=== PATIENT | female | born 1950 | race Caucasian/White ===

== ENCOUNTER → 2016-05-13 | Outpatient (CLI) | payer OTHER ==
[~2016-05-13] VITALS: Ht 167.6 cm; Wt 97.5 kg
[~2016-05-13] MED LIST: ALLOPURINOL 10100 M1 PO; ANALPRAM HC 2.530 GM RECTAL; ANTIVERT25 MG PO; APAP500 PO; ASPIRIN EC81 M1 PO; AUGMENTIN 500-1 EACH PO; AZITHROMYCIN 2250 MG PO; BP MEDICINE; CARDIZEM CD120 MG PO; CARDIZEM CD240 MG PO; CIPROFLOXACIN500 M1 PO; COLACE100 MG PO; COZAAR 50 MG TA50 M2 PO; D-20002000 UNIT PO; DEMADEX20 MG PO; DETROL LA4 MG PO; DETROL1 MG PO; FARXIGA10 MG PO; FLECAINIDE ACET50 M1 PO; FLEXERIL PO; FLOMAX0.4 MG PO; GABAPENTIN 100100 MG PO; GABAPENTIN PO; HEMORRHOIDAL P1 EAC1 TP; HUMALOG100 UNIT/1 SQ; LASIX 40 MG TAB40 M1 PO; LASIX 40 MG TAB40 M2 PO; LEVEMIR SC; LEVEMIR SUBQ; LEVEMIR100 UNIT/1 SUBQ; LINZESS290 MCG PO; LYRICA 75 MG CA75 MG PO; METFORMIN HCL500 MG PO; MIRALAX17 GM PO; MOTION RELIEF25 MG PO; MUCUS-ER MAX1200 MG PO; NORCO 5-325 TA1 EACH PO; NOVOLOG100 UNIT/1 SQ; NOVOLOG100 UNIT/1 SUBQ; PEPCID20 MG PO; PRADAXA150 MG PO; PRAVACHOL40 MG PO; PROTONIX40 M2 PO; PYRIDIUM200 MG PO; QUINAPRIL 20 MG20 MG PO; TENORMIN25 MG PO; TESSALON PERLE100 M1 PO; TOPROL XL25 MG PO; UNICOMPLEX M TA1 TA1 PO; ZOCOR 20 MG TAB20 M1 PO; [UNRECOGNIZED DRUG - REMARK]
--- NOTE | ~2016-05-13 | P ---
[facility] [address] PROCEDURE REPORT Name: GEORGI KAUFMAN V Room #: REG [facility]#: [id number] Admission: 05/13/16 Attend Phys: Derrick Love MD Discharge: Date of : 46 Report #: [id number] THIS REPORT FOR: //name// CC: Derrick Love Silvio Macias DATE OF SERVICE: 05/13/2016 PREOPERATIVE DIAGNOSIS: Atrial fibrillation. POSTOPERATIVE DIAGNOSIS: Atrial fibrillation. HISTORY OF PRESENT ILLNESS: The patient is a 66-year-old with a history of persistent atrial fibrillation status post pacemaker implantation for severe sick sinus syndrome with heart rates in the 20s who we tried to manage with antiarrhythmics unsuccessfully. We have also tried repeat cardioversions, which were unsuccessful. She has had problems with lightheadedness and fatigue with the rate control strategy. She has episodes of AFib with rapid ventricular response. She is here for AV node ablation. DESCRIPTION OF PROCEDURE: The patient underwent informed consent. We discussed the details of the procedure including the risks, which include but not limited to bleeding, infection, vascular damage and damage to the prior implanted pacemaker. She understood these risks and is willing to proceed. She underwent MAC anesthesia by the anesthesiology service. Next, I obtained access to the right femoral vein times 1 . I placed a short sheath and then exchanged for an SR0 sheath and placed an 8 mm ablation catheter into the heart. Prior to the ablation, her [employer] Jef dual-chamber pacemaker was interrogated and leads were functioning normally. Next, ablation was performed at 70 norman 60 degrees. Multiple ablation lesions were performed and this resulted in the first degree AV block. Eventually, we were able to induce complete heart block. We monitored for a period of 30 minutes and there was no amish of conduction. The pacemaker was reinterrogated and programmed to a lower rate of 70 beats per minute. CONCLUSIONS: 1. Successful AV node ablation. 2. Successful pacemaker reprogramming with stable pacing and sensing thresholds. <ELECTRONICALLY SIGNED> By: Derrick Love MD 05/13/16 1454 1005 1109 Derrick Love MD /nt
[2016-05-13 06:50] VITALS: BP 163/80
[2016-05-13 07:24] LABS: ABSOLUTE NEUTROPHILS 4.3 thou/uL (1.4-8.2); BASOPHILS 0.9 % (0.0-2.0); EOSINOPHILS 4.8 % (0.0-3.0); HEMATOCRIT 35.6 % (37.0-47.0); LYMPHOCYTES 18.4 % (24.0-44.0); MCH 27.7 pg (26.0-34.0); MCHC 33.7 % (28.0-37.0); MCV 82.4 fL (80.0-100.0); MONOCYTES 11.5 % (1.0-8.0); PLATELET COUNT 225 thou/uL (150-400); POLYS 64.4 % (36.0-66.0); RBC 4.33 mil/uL (4.20-5.00); RDW 15.1 % (10.5-14.5); WBC 6.7 thou/uL (4.0-11.0)
[2016-05-13 07:25] LABS: MANUAL DIFF NO
[2016-05-13 07:33] LABS: CALCIUM 9.3 mg/dL (8.5-10.1); CREATININE 1.5 mg/dL (0.6-1.3); POTASSIUM 4.3 mmol/L (3.5-5.1)
[2016-05-13 07:39] LABS: ALBUMIN 3.7 g/dL (3.4-5.0); APTT 42.2 Seconds (24.5-32.8); INR 1.2; PROTIME 12.9 Seconds (9.3-11.4); TOTAL BILIRUBIN 0.4 mg/dL (<0.1-1.0); TOTAL PROTEIN 6.8 g/dL (6.4-8.2)
== END | disposition home or self-care (01) ==
LOC: CATH 06:20
PROVIDERS: Internal Medicine Cardiovascular Disease
DX: I48.1 Persistent atrial fibrillation (principal); I49.5 Sick sinus syndrome; Z95.0 Presence of cardiac pacemaker
CPT/HCPCS: 62110; 70005

== ENCOUNTER → 2016-12-08 | Outpatient (CLI) | payer OTHER ==
--- NOTE | ~2016-12-08 | 2DMMODE ---
[facility] [address] [place] [address] 2 D/M-MODE ECHOCARDIOGRAM Name: GEORGI KAUFMAN CORNELIA Room #: REG [facility]#: [id number] Admission: 12/08/16 Attend Phys: Derrick Love Discharge: Date of : 46 Date of Service: 12/08/16 1605 Report #: [id number] THIS REPORT FOR: //name// APPROVED REPORT Study performed: 12/08/2016 14:53:45 EXAM: Comprehensive 2D, Doppler, and color-flow Echocardiogram Patient Location: Echo lab Status: routine BSA: 2.00 BP: 169/102 mmHg Other Information Study Quality: Adequate Indications Atrial Fibrillation Pacemaker Hypertension/HDD 2D Dimensions RVDd: 32.82 mm LVEF(%): 65.81 (>50%) IVSd: 9.70 (7-11mm) LVOT Diam: 18.76 (18-24mm) LVDd: 46.01 mm PWd: 10.22 (7-11mm) Ascending Ao: 32.20 (22-36mm) LVDs: 29.40 (25-40mm) Aortic Root: 27.27 mm IVC: 18.00 mm Dobson's LVEF: 65.81 % Volumes Left Atrial Volume (Systole) Single Plane 4CH: 63.60 mL Single Plane 2CH: 87.51 mL LA ESV Index: 40.00 mL/m2 Aortic Valve AoV Peak Jeremiah.: 1.22 m/s AO Peak Gr.: 5.91 mmHg Mitral Valve E/A Ratio: 2.8 MV Decel. Time: 225.30 ms MV E Max Jeremiah.: 1.28 m/s [facility] [address] [place] [address] 2 D/M-MODE ECHOCARDIOGRAM Name: GEORGI KAUFMAN CORNELIA Room #: REG [facility]#: [id number] Admission: 12/08/16 Attend Phys: Derrick [facility] Discharge: Date of : 46 Date of Service: 12/08/16 1605 Report #: [id number] MV A Jeremiah.: 0.45 m/s MV PHT: 65.34 ms IVRT: 115.34 ms Pulmonary Valve PV Peak Jeremiah.: 0.86 m/s PV Peak Gr.: 2.94 mmHg Tricuspid Valve TR Peak Jeremiah.: 2.82 m/s RAP Estimate: 5.00 mmHg TR Peak Gr.: 31.84 mmHg Left Ventricle The left ventricle is normal size. There is normal left ventricular wall thickness. Left ventricular systolic function is normal. LVEF is 55-60%. Right Ventricle The right ventricle is normal size. The right ventricular systolic function is normal. Atria Left atrium is dilated. Possible small PFO is noted. Right atrium is at the upper limits of normal. Aortic Valve The aortic valve is normal in structure. No aortic regurgitation is present. There is no aortic valvular stenosis. Mitral Valve Mild mitral annular calcification. Mild mitral regurgitation. No evidence of mitral valve stenosis. Tricuspid Valve The tricuspid valve is normal in structure. There is mild to moderate tricuspid regurgitation. The right atrial pressure is estimated at 5 mmHg. PAP is estimated at 37 mmHg. Pulmonic Valve The pulmonary valve is normal in structure. Trace pulmonic regurgitation. Great Vessels The aortic root is normal in size. IVC is normal in size and collapses >50% with inspiration. <Conclusion> [facility] [place] [address] 2 D/M-MODE ECHOCARDIOGRAM Name: GEORGI KAUFMAN CORNELIA [facility] [id number] Admission: 12/08/16 Attend Phys: Derrick Love Discharge: Date of : 46 Date of Service: 12/08/16 1605 Report #: [id number] The left ventricle is normal size. LVEF is 55-60%. Left atrium is dilated. The aortic valve is normal in structure. Mild mitral annular calcification. Mild mitral regurgitation. The tricuspid valve is normal in structure. There is mild to moderate tricuspid regurgitation. The right atrial pressure is estimated at 5 mmHg. PAP is estimated at 37 mmHg. The pulmonary valve is normal in structure. Trace pulmonic regurgitation. <ELECTRONICALLY SIGNED> By: Isac Rodrigues MD 12/08/16 1605 1605 Isac Rodrigues MD /INF
== END ==
LOC: CV 10:40
DX: I08.1 Rheumatic disorders of both mitral and tricuspid valves (principal); I10 Essential (primary) hypertension; I48.91 Unspecified atrial fibrillation

== ENCOUNTER 2017-05-19 12:04 | Emergency (ER) | payer OTHER ==
[~2017-05-19] VITALS: Ht 165.1 cm; Wt 90.7 kg
[~2017-05-19 12:04] MED LIST changes: +COZAAR 50 MG TA50 M1 PO; -COZAAR 50 MG TA50 M2 PO
[2017-05-19] MEDS ORDERED: OXYCODONE HCL 55 MG PO (14:56)
[2017-05-19] MEDS ORDERED: SENNA S TABLET1 EACH PO (14:56)
[2017-05-19 15:20] VITALS: BP 135/69
== END 2017-05-19 15:21 | disposition home or self-care (01) ==
LOC: ER 12:04
DX: M25.531 Pain in right wrist (principal); R07.89 Other chest pain; I48.91 Unspecified atrial fibrillation; E11.9 Type 2 diabetes mellitus without complications; I10 Essential (primary) hypertension; K21.9 Gastro-esophageal reflux disease without esophagitis; G47.30 Sleep apnea, unspecified; E78.00 Pure hypercholesterolemia, unspecified; E66.9 Obesity, unspecified; Z90.710 Acquired absence of both cervix and uterus; Z79.4 Long term (current) use of insulin; Z88.6 Allergy status to analgesic agent; Z68.33 Body mass index [BMI] 33.0-33.9, adult; W01.0XXA Fall on same level from slipping, tripping and stumbling without subsequent striking against object, initial encounter; Y93.89 Activity, other specified; Y92.89 Other specified places as the place of occurrence of the external cause; Y99.8 Other external cause status

== ENCOUNTER 2018-01-18 10:23 | Inpatient (IN) | payer OTHER ==
[~2018-01-18] VITALS: Ht 167.6 cm; Wt 85.0 kg
--- NOTE | ~2018-01-18 | 2DMMODE ---
[address] [address] 2 D/M-MODE ECHOCARDIOGRAM Name: GEORGI KAUFMAN Room #: REG [facility].#: [id number] Admission: 01/18/18 Attend Phys: Discharge: Date of : 46 Date of Service: 01/18/18 1227 Report #: [id number] THIS REPORT FOR: //name// APPROVED REPORT Study performed: 01/18/2018 11:38:56 EXAM: Limited 2D, Doppler, and color-flow Echocardiogram Patient Location: ER Room #: 8 Status: routine HR: 69 bpm Other Information Study Quality: Technically Limited Technically limited study due to inability to position patient, patient on biPap. Indications Diabetes Pacemaker Hypertension/HDD limited echo to R/O pericardial effusion, complete echo 01/11/18 2D Dimensions IVC: 25.00 mm Tricuspid Valve TR Peak Jeremiah.: 3.12 m/s RAP Estimate: 10.00 mmHg TR Peak Gr.: 39.00 mmHg PA Pressure: 49.00 mmHg Left Ventricle The overall left ventricular systolic function appears normal. LVEF is 55%. Right Ventricle Right ventricle is mildly dilated. Atria The left atrium size is normal. Right atrium is dilated. Mitral Valve Mild mitral annular calcification. [address] [address] 2 D/M-MODE ECHOCARDIOGRAM Name: GEORGI KAUFMAN Room #: REG [facility]#: [id number] Admission: 01/18/18 Attend Phys: Discharge: Date of : 46 Date of Service: 01/18/18 1227 Report #: [id number] Tricuspid Valve The tricuspid valve is normal in structure. Moderate tricuspid regurgitation. PAP is estimated at 50-55 mmHg. Great Vessels IVC is dilated. Pericardium No pericardial effusion. <Conclusion> Very limited and abbreviated study The overall left ventricular systolic function appears normal. LVEF is 55%. Right ventricle is mildly dilated. The left atrium size is normal. Right atrium is dilated. Pacing wires seen Mild mitral annular calcification. Moderate tricuspid regurgitation. Pulmonary artery pressure estimated at 50-55 mmHg. No pericardial effusion. <ELECTRONICALLY SIGNED> By: Gautam Padron MD, [facility] 01/18/181226 26 26 Gautam Padron MD, FAC /INF
--- NOTE | ~2018-01-18 | EKG ---
[address] [address] ELECTROCARDIOGRAM REPORT Name: MANDEEPGEORGIKulwinder LOCKE Room #: 208-P ADM IN M.R.#: [id number] Admission: 01/18/18 Attend Phys: Jay Mast MD Discharge: Date of : 46 Report #: [id number] THIS REPORT FOR: //name// [facility] Test Date: 2018-01-19 Test Time: 08:51:02 Pat Name: GEORGI KAUFMAN Department: Room: 208 P Gender: F Cyber Systems Administrator: CECILE : 1950 Requested By: Luz Marina Webster Order Number: [id number] MD: Derrick Love Measurements Intervals [place] Rate: 70 P: 0 CA: 189 QRS: 262 QRSD: 137 T: 105 QT: 459 QTc: 496 Interpretive Statements Ventricular-paced complexes No further analysis attempted due to paced rhythm Baseline wander in lead(s) V6 Compared to ECG 01/18/2018 10:40:20 Atrial fibrillation no longer present Electronically Signed On 01-19-2018 23:08:13 CDT by Derrick Love [email or web address] <ELECTRONICALLY SIGNED> By: Derrick Love MD 01/19/18 2308 0851 0851 Derrick Love MD /EPI
--- NOTE | ~2018-01-18 | EKG ---
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 : 1950 Requested By: Alvino Phan Order Number: [id number] MD: Derrick Love Measurements Intervals [place] Rate: 70 P: CT: QRS: 258 QRSD: 132 T: 93 QT: 459 QTc: 496 Interpretive Statements Afib/flut and V-paced complexes No further analysis attempted due to paced rhythm Compared to ECG 01/03/2016 13:14:24 Intraventricular conduction delay no longer present Myocardial infarct finding no longer present Electronically Signed On 01-18-2018 17:03:07 CDT by Derrick Love [email or web address] <ELECTRONICALLY SIGNED> By: Derrick Love MD 01/18/18 1703 1040 1040 Derrick Love MD /EPI
[~2018-01-18 10:23] MED LIST changes: +OXYCODONE HCL 55 MG PO; +SENNA S TABLET1 EACH PO
[2018-01-18 10:29] VITALS: BP 185/82
[2018-01-18 11:22] LABS: ABSOLUTE NEUTROPHILS 8.3 thou/uL (1.4-8.2); BASOPHILS 0.7 % (0.0-2.0); EOSINOPHILS 1.5 % (0.0-3.0); HEMATOCRIT 34.6 % (37.0-47.0); HEMOGLOBIN 11.8 gm/dL (12.0-15.0); LYMPHOCYTES 6.4 % (24.0-44.0); MCHC 34.2 g/dL (28.0-37.0); MCV 81.8 fL (80.0-100.0); MONOCYTES 11.2 % (1.0-8.0); PLATELET COUNT 273 thou/uL (150-400); POLYS 80.2 % (36.0-66.0); RBC 4.23 mil/uL (4.20-5.00); RDW 15.5 % (10.5-14.5); WBC 10.3 thou/uL (4.0-11.0)
[2018-01-18 11:28] LABS: ANION GAP 9 mmol/L (7-16); BUN 19 mg/dL (7-18); CALCIUM 9.6 mg/dL (8.5-10.1); CHLORIDE 102 mmol/L (98-107); CO2 26 mmol/L (21-32); CREATININE 1.4 mg/dL (0.6-1.0); GLUCOSE 225 mg/dL (74-106); POTASSIUM 4.4 mmol/L (3.5-5.1); SODIUM 137 mmol/L (136-145)
[2018-01-18 11:37] LABS: TROPONIN-I <0.06 ng/mL (<0.06)
[2018-01-18 13:56] VITALS: BP 173/83
[2018-01-18 14:20] VITALS: BP 160/81
[2018-01-18] MEDS ORDERED: CARDIZEM CD120 MG PO (14:49)
[2018-01-18 17:10] VITALS: BP 165/98
[2018-01-18 19:20] VITALS: BP 166/94
[2018-01-19 04:41] LABS: CALCIUM 9.2 mg/dL (8.5-10.1); CREATININE 1.7 mg/dL (0.6-1.0); MAGNESIUM 1.7 mg/dL (1.8-2.4); POTASSIUM 4.1 mmol/L (3.5-5.1)
[2018-01-19 04:49] LABS: ABSOLUTE NEUTROPHILS 6.1 thou/uL (1.4-8.2); BASOPHILS 0.1 % (0.0-2.0); HEMATOCRIT 32.8 % (37.0-47.0); HEMOGLOBIN 10.8 gm/dL (12.0-15.0); LYMPHOCYTES 3.3 % (24.0-44.0); MCH 27.4 pg (26.0-34.0); MCV 83.1 fL (80.0-100.0); MONOCYTES 1.4 % (1.0-8.0); PLATELET COUNT 229 thou/uL (150-400); POLYS 95.2 % (36.0-66.0); RBC 3.94 mil/uL (4.20-5.00); WBC 6.4 thou/uL (4.0-11.0)
[2018-01-19 05:53] VITALS: BP 163/94
[2018-01-19 08:10] VITALS: BP 147/80
[2018-01-19 15:40] VITALS: BP 134/68
[2018-01-19 19:15] VITALS: BP 120/64
[2018-01-20 04:11] VITALS: BP 133/74
[2018-01-20 05:03] LABS: CALCIUM 9.4 mg/dL (8.5-10.1); CREATININE 1.7 mg/dL (0.6-1.0); POTASSIUM 4.1 mmol/L (3.5-5.1)
[2018-01-20 05:23] LABS: HEMATOCRIT 30.4 % (37.0-47.0); HEMOGLOBIN 10.3 gm/dL (12.0-15.0); MCH 27.5 pg (26.0-34.0); MCHC 33.8 g/dL (28.0-37.0); MCV 81.5 fL (80.0-100.0); RBC 3.73 mil/uL (4.20-5.00); RDW 15.5 % (10.5-14.5)
[2018-01-20 07:50] VITALS: BP 128/73
[2018-01-20 11:42] VITALS: BP 148/80
[2018-01-20 16:00] VITALS: BP 138/63
[2018-01-20 20:00] VITALS: BP 145/73
[2018-01-21 05:00] VITALS: BP 149/80
[2018-01-21 05:32] LABS: HEMATOCRIT 35.8 % (37.0-47.0); MCH 27.2 pg (26.0-34.0); MCHC 33.5 g/dL (28.0-37.0); MCV 81.4 fL (80.0-100.0); RBC 4.4 mil/uL (4.20-5.00); RDW 15.3 % (10.5-14.5); WBC 15.7 thou/uL (4.0-11.0)
[2018-01-21 05:36] LABS: CALCIUM 9.5 mg/dL (8.5-10.1); CREATININE 1.6 mg/dL (0.6-1.0); POTASSIUM 3.7 mmol/L (3.5-5.1)
[2018-01-21 07:45] VITALS: BP 168/89
[2018-01-21 11:50] VITALS: BP 154/88
[2018-01-21 16:05] VITALS: BP 150/69
[2018-01-21 20:10] VITALS: BP 121/70
[2018-01-22 03:07] LABS: HEMATOCRIT 34.2 % (37.0-47.0); HEMOGLOBIN 11.3 gm/dL (12.0-15.0); MCV 81.8 fL (80.0-100.0); RBC 4.18 mil/uL (4.20-5.00); RDW 15.5 % (10.5-14.5); WBC 9.8 thou/uL (4.0-11.0)
[2018-01-22 03:17] LABS: CALCIUM 9.3 mg/dL (8.5-10.1); CREATININE 1.6 mg/dL (0.6-1.0); POTASSIUM 3.5 mmol/L (3.5-5.1)
[2018-01-22 05:14] VITALS: BP 122/76
[2018-01-22 07:55] VITALS: BP 137/79
[2018-01-22 12:15] VITALS: BP 135/73
[2018-01-22] MEDS ORDERED: XARELTO20 MG PO (12:42)
[2018-01-22] MEDS ORDERED: LYRICA 75 MG CA75 MG PO (12:43)
[2018-01-22] MEDS ORDERED: METOPROLOL SUCC50 MG PO (12:43)
[2018-01-22] MEDS ORDERED: NORVASC5 MG PO (12:43)
[2018-01-22] MEDS ORDERED: TORSEMIDE20 MG PO (12:44)
[2018-01-22] MEDS ORDERED: POTASSIUM20 PO (12:44)
[2018-01-22] MEDS ORDERED: LEVEMIR SUBQ (12:45)
[2018-01-22 13:29] VITALS: BP 135/73
[2018-01-22 16:16] VITALS: BP 135/73
== END 2018-01-22 16:11 | disposition home or self-care (01) | DRG 291 ==
LOC: ER 10:23 → EROBS 13:15 → 2N 13:15 → ENTRNSPT 01-22 15:38 → EDTRNSPTSTS 01-22 15:55 → 2N 01-22 16:11
PROVIDERS: Hospitalist; Internal Medicine Cardiovascular Disease; Nurse Practitioner; Physician Assistant
PROC: 5A09357 Assistance with Respiratory Ventilation, Less than 24 Consecutive Hours, Continuous Positive Airway Pressure (ICD-10-PCS; principal; 2018-01-18)
DX: I13.0 Hypertensive heart and chronic kidney disease with heart failure and stage 1 through stage 4 chronic kidney disease, or unspecified chronic kidney disease (principal); I50.43 Acute on chronic combined systolic (congestive) and diastolic (congestive) heart failure; J96.21 Acute and chronic respiratory failure with hypoxia; I31.3 Pericardial effusion (noninflammatory); E66.9 Obesity, unspecified; K21.9 Gastro-esophageal reflux disease without esophagitis; I49.5 Sick sinus syndrome; E78.00 Pure hypercholesterolemia, unspecified; E11.65 Type 2 diabetes mellitus with hyperglycemia; N18.9 Chronic kidney disease, unspecified; E11.22 Type 2 diabetes mellitus with diabetic chronic kidney disease; I48.2 Chronic atrial fibrillation; E87.70 Fluid overload, unspecified; Z90.710 Acquired absence of both cervix and uterus; Z68.30 Body mass index [BMI] 30.0-30.9, adult; Z95.0 Presence of cardiac pacemaker; Z88.6 Allergy status to analgesic agent; Z79.899 Other long term (current) drug therapy; Z23 Encounter for immunization
CPT/HCPCS: 10081

== ENCOUNTER 2018-02-07 19:50 | Inpatient (IN) | payer OTHER ==
[~2018-02-07] VITALS: Ht 167.6 cm; Wt 83.3 kg
--- NOTE | ~2018-02-07 | EKG ---
[address] [place] [address] ELECTROCARDIOGRAM REPORT Name: GEORGI KAUFMAN CORNELIA Room #: 362-P ADM IN M.R.#: [id number] Admission: 02/07/18 Attend Phys: Barron Yung MD Discharge: Date of : 46 Report #: [id number] THIS REPORT FOR: //name// [facility] ED Test Date: 2018-02-07 Test Time: 20:31:31 Pat Name: GEORGI KAUFMAN Department: Room: 362 Gender: F M46 M60 Armor Crewman: Miguel VENEGAS : 1950 Requested By: Nica Gibbons Order Number: [id number] MD: Gautam Padron Measurements Intervals [place] Rate: 70 P: 173 AL: 71 QRS: 253 QRSD: 144 T: 67 QT: 453 QTc: 489 Interpretive Statements Ventricular-paced rhythm No further analysis attempted due to paced rhythm Compared to ECG 01/19/2018 08:51:02 No significant changes Electronically Signed On 02-08-2018 8:20:49 CDT by Gautam Padron [email or web address] <ELECTRONICALLY SIGNED> By: Gautam Padron MD, [facility] 10/819 30 30 Gautam Padron MD, [facility] /EPI
--- NOTE | ~2018-02-07 | EKG ---
[place] [address] [facility] [place] [address] ELECTROCARDIOGRAM REPORT Name: GEORGI KAUFMAN Room #: 362-P ADM IN M.R.#: [id number] Admission: 02/07/18 Attend Phys: Barron Yung MD Discharge: Date of : 46 Report #: [id number] THIS REPORT FOR: //name// [facility] Test Date: 2018-02-08 Test Time: 10:25:30 Pat Name: GEORGI KAUFMAN Department: Room: 362 P Gender: F Hogshead Mat Inspector: Arturo MCNAIR : 1950 Requested By: Ryder Sal Order Number: [id number] MD: Gautam Padron Measurements Intervals [place] Rate: 70 P: PA: QRS: 255 QRSD: 138 T: 77 QT: 456 QTc: 493 Interpretive Statements Afib/flut and V-paced complexes No further analysis attempted due to paced rhythm Compared to ECG 02/07/2018 20:31:31 No significant changes Electronically Signed On 02-09-2018 8:19:22 CDT by Gautam Padron [email or web address] <ELECTRONICALLY SIGNED> By: Gautam Padron MD, [facility] 02/09/18 0819 1025 1025 Gautam Padron MD, [facility] /EPI
--- NOTE | ~2018-02-07 | HC ---
[facility] [place] [address] CONSULTATION Name: GEORGI KAUFMAN Room #: 362-P ADM IN M.R.#: [id number] Admission: 02/07/18 Attend Phys: Barron Yung MD Discharge: Date of : 46 Report #: [id number] THIS REPORT FOR: //name// CC: NO PCP Barron Yung DATE OF SERVICE: 02/08/2018 NEPHROLOGY CONSULTATION REASON FOR CONSULTATION: Acute and chronic kidney disease. HISTORY OF PRESENT ILLNESS: The patient with diabetic nephropathy, followed in our office by Dr. Jonathan Elliott with a baseline creatinine running around the range of 2.0, was admitted to this hospital several weeks ago with congestive heart failure. This was after an episode at [facility] where she had pericardial effusion and actually underwent pericardiocentesis. Medications were adjusted during that admission, including a change of diuretics from furosemide to torsemide and also change in management of her diabetes. She also had diltiazem changed to a beta andrew. After discharge, she has felt reasonably well, has not had trouble with swelling or shortness of breath, but blood sugars have been more difficult to control. She also had been placed on potassium, which was new to her. She became confused, had trouble with her vision, came to the hospital, was found to be hyperkalemic and creatinine up to 3.6 and was admitted. MEDICATIONS: At the time of admission include insulin, torsemide 40 mg daily, potassium 40 mEq daily, Lyrica 75 mg b.i.d., amlodipine 5 mg daily, metoprolol 100 mg daily, Xarelto 20 mg daily, allopurinol 100 mg daily, losartan 100 mg daily, famotidine 40 mg daily and Linzess. SOCIAL HISTORY: Denies substantial cigarettes or alcohol. Lives at home. PAST SURGICAL HISTORY: Includes a benign breast biopsy on the right, previous decortication of right chest empyema, tonsillectomy, hysterectomy. She has also chronic atrial fibrillation, AV node ablation and has a permanent dual-chamber pacemaker in place, history of CHF. REVIEW OF SYSTEMS: GENERAL: She has actually been feeling reasonably well. EYES: She has had trouble with vision, particularly in bright katerine conditions. ENT: Hearing okay, swallows okay. ENDOCRINE: Positive for diabetes. RESPIRATORY: She is not short of breath. No pleuritic pain, cough or [facility] [address] [place] [address] CONSULTATION Name: GEORGI KAUFMAN Room #: 362-P [facility] IN M.R.#: [id number] Admission: 02/07/18 Attend Phys: Barron Yung MD Discharge: Date of : 46 Report #: [id number] hemoptysis. CARDIAC: No chest pain or angina. Her swelling has been quite good. GASTROINTESTINAL: No nausea, vomiting or diarrhea. GENITOURINARY: Good urinary stream without dysuria. MUSCULOSKELETAL: No arthritis. NEUROLOGIC: Some evidence of peripheral neuropathy. PHYSICAL EXAMINATION: GENERAL: This is a reasonably well appearing woman seen in her hospital bed. SKIN: Unremarkable. SKELETAL: Shows her to be well-developed, well-nourished, a bit overweight. HEENT: Extraocular movements are full. No scleral icterus. Hearing and vision intact. Mucous membranes moist. Tongue, buccal mucosa benign. NECK: Supple, no lymphadenopathy or thyromegaly. CHEST: Completely clear to auscultation. HEART: Regular. ABDOMEN: Soft and nontender. EXTREMITIES: Showing no edema. ASSESSMENT AND PLAN: 1. Acute and chronic kidney disease. She has become volume depleted, I believe likely due to hyperglycemia and poorly controlled sugars. She has had some cardiac dysfunction, may be some bradycardia associated with her hyperkalemia due to the potassium in the presence of losartan and volume depletion. She has been receiving IV fluids, seems to be getting better. I suspect the potassium will be easily controlled. Blood sugar needs to be better controlled. Creatinine should come back down to baseline without much difficulty and we will have to reimagine and reconfigure her pharmaceutical regimen. 2. Diabetes mellitus with diabetic nephropathy and peripheral neuropathy. 3. Chronic atrial fibrillation with dual chamber pacemaker, status post atrioventricular node ablation. 4. History of pericardial effusion with pericardiocentesis. 5. History of congestive heart failure. By: 1008 0023 Ryder Sal MD /nt
[~2018-02-07 19:50] MED LIST changes: +METOPROLOL SUCC50 MG PO; +NORVASC5 MG PO; +POTASSIUM20 PO; +TORSEMIDE20 MG PO; +XARELTO20 MG PO
[2018-02-07 20:03] VITALS: BP 105/61
[2018-02-07 21:33] LABS: URINE BILIRUBIN NEGATIVE (Negative); URINE BLOOD NEGATIVE (Negative); URINE CLARITY CLEAR; URINE COLOR YELLOW; URINE GLUCOSE-RANDOM* NEGATIVE (Negative); URINE KETONES NEGATIVE (Negative); URINE LEUKOCYTES-REFLEX NEGATIVE (Negative); URINE NITRITE-REFLEX NEGATIVE (Negative); URINE PROTEIN (DIPSTICK) NEGATIVE (Negative); URINE SPECIFIC GRAVITY 1.015 (1.005-1.035); URINE UROBILINOGEN 0.2 E.U./dl (0.2-1.0)
[2018-02-07 21:41] LABS: AMP/METHAMP Negative (Negative); BARBITURATES Negative (Negative); BENZODIAZEPINES Negative (Negative); COCAINE Negative (Negative); METHADONE Negative (Negative); OPIATES Negative (Negative); PCP Negative (Negative)
[2018-02-07 21:43] LABS: ABSOLUTE NEUTROPHILS 6.7 thou/uL (1.4-8.2); BASOPHILS 0.8 % (0.0-2.0); EOSINOPHILS 4.8 % (0.0-3.0); HEMATOCRIT 40.6 % (37.0-47.0); HEMOGLOBIN 13.6 gm/dL (12.0-15.0); LYMPHOCYTES 14.4 % (24.0-44.0); MCH 27.4 pg (26.0-34.0); MCHC 33.5 g/dL (28.0-37.0); MCV 81.8 fL (80.0-100.0); MONOCYTES 7.7 % (1.0-8.0); PLATELET COUNT 349 thou/uL (150-400); POLYS 72.3 % (36.0-66.0); RBC 4.97 mil/uL (4.20-5.00); RDW 15.9 % (10.5-14.5); WBC 9.2 thou/uL (4.0-11.0)
[2018-02-07 21:55] LABS: CREATININE 3.6 mg/dL (0.6-1.0); MAGNESIUM 2.6 mg/dL (1.8-2.4)
[2018-02-07 21:56] LABS: POTASSIUM 6.1 mmol/L (3.5-5.1)
[2018-02-07 22:34] VITALS: BP 95/57
[2018-02-07 23:02] VITALS: BP 95/57
[2018-02-08 03:26] VITALS: BP 92/50
[2018-02-08 05:39] LABS: HEMATOCRIT 34.6 % (37.0-47.0); MCH 26.4 pg (26.0-34.0); MCHC 32.5 g/dL (28.0-37.0); MCV 81.2 fL (80.0-100.0); RBC 4.26 mil/uL (4.20-5.00); WBC 6.8 thou/uL (4.0-11.0)
[2018-02-08 05:40] LABS: HEMOGLOBIN 11.3 gm/dL (12.0-15.0)
[2018-02-08 05:55] LABS: CALCIUM 9.2 mg/dL (8.5-10.1); CREATININE 3.3 mg/dL (0.6-1.0)
[2018-02-08 06:02] LABS: POTASSIUM 6.1 mmol/L (3.5-5.1)
[2018-02-08 08:32] VITALS: BP 106/61
[2018-02-08 12:33] VITALS: BP 104/57
[2018-02-08 16:18] VITALS: BP 106/62
[2018-02-08 19:45] VITALS: BP 112/60
[2018-02-09] VITALS (9 sets, daily range): BP systolic 112–150; BP diastolic 57–91
[2018-02-09 06:10] LABS: HEMATOCRIT 32.1 % (37.0-47.0); HEMOGLOBIN 10.9 gm/dL (12.0-15.0); MCH 27.9 pg (26.0-34.0); MCHC 33.9 g/dL (28.0-37.0); MCV 82.3 fL (80.0-100.0); PLATELET COUNT 232 thou/uL (150-400); RDW 15.7 % (10.5-14.5); WBC 8.4 thou/uL (4.0-11.0)
[2018-02-09 06:43] LABS: ALBUMIN 2.5 g/dL (3.4-5.0); CALCIUM 8.6 mg/dL (8.5-10.1); PHOSPHORUS 3.7 mg/dL (2.5-4.9); POTASSIUM 4.6 mmol/L (3.5-5.1)
[2018-02-09 07:58] LABS: ABSOLUTE NEUTROPHILS 5.5 thou/uL (1.4-8.2)
[2018-02-10 03:35] VITALS: BP 123/63
[2018-02-10 06:37] LABS: ABSOLUTE NEUTROPHILS 5.2 thou/uL (1.4-8.2); BASOPHILS 0.7 % (0.0-2.0); EOSINOPHILS 5.8 % (0.0-3.0); HEMATOCRIT 31.2 % (37.0-47.0); HEMOGLOBIN 10.4 gm/dL (12.0-15.0); LYMPHOCYTES 13.6 % (24.0-44.0); MCH 27.1 pg (26.0-34.0); MCHC 33.2 g/dL (28.0-37.0); MCV 81.7 fL (80.0-100.0); MONOCYTES 11.9 % (1.0-8.0); PLATELET COUNT 214 thou/uL (150-400); RBC 3.82 mil/uL (4.20-5.00); RDW 16.1 % (10.5-14.5); WBC 7.6 thou/uL (4.0-11.0)
[2018-02-10 06:49] LABS: ALBUMIN 2.5 g/dL (3.4-5.0); CALCIUM 8.8 mg/dL (8.5-10.1); CREATININE 1.4 mg/dL (0.6-1.0); PHOSPHORUS 2.9 mg/dL (2.5-4.9); POTASSIUM 4.3 mmol/L (3.5-5.1)
[2018-02-10 07:43] VITALS: BP 119/57
[2018-02-10 11:40] LABS: % SATURATION 14 % (20-39); IRON 27 ug/dL (50-170); TIBC 189 ug/dL (250-450)
[2018-02-10 12:05] VITALS: BP 125/64
[2018-02-10 16:36] VITALS: BP 94/51
[2018-02-10 19:44] VITALS: BP 127/64
[2018-02-11 00:05] LABS: GLYCOHEMOGLOBIN (HGB A1C) 9.8 % (4.8-5.6)
[2018-02-11 04:08] VITALS: BP 111/55
[2018-02-11 06:46] LABS: ALBUMIN 2.6 g/dL (3.4-5.0); CALCIUM 8.8 mg/dL (8.5-10.1); CREATININE 1.4 mg/dL (0.6-1.0); PHOSPHORUS 2.9 mg/dL (2.5-4.9); POTASSIUM 4.8 mmol/L (3.5-5.1)
[2018-02-11 07:31] VITALS: BP 120/72
[2018-02-11 12:14] VITALS: BP 109/72
[2018-02-11] MEDS ORDERED: COZAAR 50 MG TA50 M1 PO (12:46)
== END 2018-02-11 15:10 | disposition home health service (06) | DRG 682 ==
LOC: ER 19:50 → 3W 22:22 → EROBS 22:22 → 3W 22:58
PROVIDERS: Emergency Medicine; Hospitalist; Internal Medicine Nephrology; Nurse Practitioner Acute Care; Nurse Practitioner Family
DX: N17.9 Acute kidney failure, unspecified (principal); G93.41 Metabolic encephalopathy; I50.30 Unspecified diastolic (congestive) heart failure; I13.0 Hypertensive heart and chronic kidney disease with heart failure and stage 1 through stage 4 chronic kidney disease, or unspecified chronic kidney disease; E78.5 Hyperlipidemia, unspecified; I49.5 Sick sinus syndrome; E78.00 Pure hypercholesterolemia, unspecified; K21.9 Gastro-esophageal reflux disease without esophagitis; E87.5 Hyperkalemia; I48.2 Chronic atrial fibrillation; E86.9 Volume depletion, unspecified; E11.42 Type 2 diabetes mellitus with diabetic polyneuropathy; E11.22 Type 2 diabetes mellitus with diabetic chronic kidney disease; N18.3 Chronic kidney disease, stage 3 (moderate); M62.84 Sarcopenia; D64.9 Anemia, unspecified; R63.4 Abnormal weight loss; K59.00 Constipation, unspecified; Z79.899 Other long term (current) drug therapy; Z95.0 Presence of cardiac pacemaker; Z90.710 Acquired absence of both cervix and uterus; Z88.6 Allergy status to analgesic agent; Z68.29 Body mass index [BMI] 29.0-29.9, adult
CPT/HCPCS: 10879

== ENCOUNTER 2018-05-12 19:59 | Inpatient (IN) | payer OTHER ==
[~2018-05-12] VITALS: Ht 162.6 cm; Wt 81.6 kg
[2018-05-12 20:00] VITALS: BP 130/50
[2018-05-12 20:45] LABS: ABSOLUTE NEUTROPHILS 13.8 thou/uL (1.4-8.2); BASOPHILS 0.4 % (0.0-2.0); EOSINOPHILS 0.4 % (0.0-3.0); HEMATOCRIT 36.2 % (37.0-47.0); HEMOGLOBIN 12.6 gm/dL (12.0-15.0); LYMPHOCYTES 2.8 % (24.0-44.0); MCH 28.5 pg (26.0-34.0); MCHC 34.7 g/dL (28.0-37.0); MCV 82.2 fL (80.0-100.0); MONOCYTES 8.6 % (1.0-8.0); PLATELET COUNT 207 thou/uL (150-400); POLYS 87.8 % (36.0-66.0); WBC 15.7 thou/uL (4.0-11.0)
[2018-05-12 20:50] LABS: ANION GAP 12 mmol/L (7-16); BUN 62 mg/dL (7-18); CALCIUM 8.8 mg/dL (8.5-10.1); CHLORIDE 98 mmol/L (98-107); CO2 21 mmol/L (21-32); CREATININE 2.1 mg/dL (0.6-1.0); GLUCOSE 331 mg/dL (74-106); POTASSIUM 3.8 mmol/L (3.5-5.1); SODIUM 131 mmol/L (136-145)
[2018-05-12 20:59] LABS: SGOT 63 U/L (15-37); SGPT 42 U/L (30-65); TOTAL BILIRUBIN 0.4 mg/dL (<0.1-1.0); TOTAL PROTEIN 6.4 g/dL (6.4-8.2); TROPONIN-I <0.06 ng/mL (<0.06)
[2018-05-12 23:03] VITALS: BP 187/80
[2018-05-12 23:10] LABS: URINE CLARITY CLEAR; URINE COLOR YELLOW; URINE GLUCOSE-RANDOM* 2+ (Negative); URINE PROTEIN (DIPSTICK) NEGATIVE (Negative)
[2018-05-12 23:11] LABS: URINE BILIRUBIN NEGATIVE (Negative); URINE BLOOD 1+ (Negative); URINE KETONES NEGATIVE (Negative); URINE LEUKOCYTES-REFLEX NEGATIVE (Negative); URINE NITRITE-REFLEX NEGATIVE (Negative); URINE UROBILINOGEN 0.2 E.U./dl (0.2-1.0)
[2018-05-12 23:12] LABS: BACTERIA-REFLEX None Seen /HPF (None Seen); CASTS None Seen /LPF (None Seen); CRYSTALS None Seen /LPF (None Seen); MUCUS None Seen strn/LPF (None Seen); SQUAMOUS None Seen /LPF (0-3); URINE RBC 0-2 Rare /HPF (0-2); URINE WBC-REFLEX None Seen /HPF (0-5)
[2018-05-13 00:15] VITALS: BP 103/42
[2018-05-13 00:38] VITALS: BP 113/50
--- NOTE | 2018-05-13 03:12 | NUR ---
PT ARRIVED AT 0040 PT ORIENTATED TO ROOM AND CALL LIGHT PT PROVIDED INFORMATION FOR HEALTH HX NO ISSUES OVERNIGHT.
[2018-05-13 03:38] VITALS: BP 114/51
[2018-05-13 05:26] LABS: HEMATOCRIT 31.2 % (37.0-47.0); MCHC 34.1 g/dL (28.0-37.0); MCV 82.1 fL (80.0-100.0); RBC 3.79 mil/uL (4.20-5.00); RDW 14.5 % (10.5-14.5); WBC 13.5 thou/uL (4.0-11.0)
[2018-05-13 05:30] LABS: HEMOGLOBIN 10.6 gm/dL (12.0-15.0)
[2018-05-13 05:35] LABS: CALCIUM 8.4 mg/dL (8.5-10.1); CREATININE 1.6 mg/dL (0.6-1.0); POTASSIUM 3.5 mmol/L (3.5-5.1)
[2018-05-13 07:45] VITALS: BP 111/47
--- NOTE | 2018-05-13 11:18 | NUR ---
TOWARDS POC PT A/O X4, VSS, AFEBRILE. PAIN MANAGED BY MEDICATION. PT CLAIMS THAT SHE STILL FEELS WEAK. CRITICAL LAB RESULT RELAYED TO MD. INITIAL DOSE ZOSYN INFUSING. PT REMAINED IN DROPLET PRECAUTION ISOLATION. NO CONCERNS VOICED AT THIS TIME WILL CONTINUE TO MONITOR.
--- NOTE | 2018-05-13 12:04 | EKG ---
[place] [address] [email or web address] [address] ELECTROCARDIOGRAM REPORT Name: GEORGI KAUFMAN Room #: 454-P ADM IN M.R.#: [id number] Admission: 05/12/18 Attend Phys: Jay Mast MD Discharge: Date of : 46 Report #: [id number] THIS REPORT FOR: //name// [facility] ED Test Date: 2018-05-12 Test Time: 20:29:48 Pat Name: GEORGI KAUFMAN Department: Room: [facility] Gender: F Visual Design Lead: WG : 1950 Requested By: Blanco Jin Order Number: [id number] MD: Gautam Padron Measurements Intervals [place] Rate: 70 P: [place]: QRS: 254 QRSD: 141 T: 65 QT: 456 QTc: 493 Interpretive Statements Afib/flut and V-paced complexes No further analysis attempted due to paced rhythm Compared to ECG 02/08/2018 10:25:30 No significant changes Electronically Signed On 05-13-2018 12:03:50 [employer]ATION [employer]NA[employer] by Gautam Padron [email or web address] <ELECTRONICALLY SIGNED> By: Gautam Padron MD, [facility] 05/13/18 1203 28 28 Gautam Padron MD, [facility] /EPI
[2018-05-13 13:46] VITALS: BP 118/56
[2018-05-13 20:52] VITALS: BP 95/51
[2018-05-14 03:49] VITALS: BP 111/63
[2018-05-14 05:55] LABS: HEMATOCRIT 28.6 % (37.0-47.0); HEMOGLOBIN 10.1 gm/dL (12.0-15.0); MCHC 35.3 g/dL (28.0-37.0); MCV 81.9 fL (80.0-100.0); RBC 3.49 mil/uL (4.20-5.00); RDW 14.9 % (10.5-14.5); WBC 9.9 thou/uL (4.0-11.0)
[2018-05-14 05:57] LABS: CALCIUM 8.2 mg/dL (8.5-10.1); CREATININE 1.9 mg/dL (0.6-1.0); POTASSIUM 3.7 mmol/L (3.5-5.1)
--- NOTE | 2018-05-14 06:30 | NUR ---
PROGRESS PT ADMITTED S/P FALL AND LEFT WRIST FRACTURE, INFLUENZA AND WEAKNESS.A/O X4. UP WITH 1 GB AND SBA. VSS, TELE READING VPACED WITH RATES IN THE 70'S. ACCUCHECKS CONTINUE 148 @2045 LONG ACTING INSULIN GIVEN ORDERED.LEFT WRIST SPLINTED AND IMMOBILIZER IN PLACE. ACCUCHECKS CONTINUE. IVF'S INFUSING INTO RAC ORDERED, ZOSYN CONTINUES, TAKING HYDROCODONE FOR PAIN. BUN ELEVATED AT 51 CREATININE NL AT 1.6.
[2018-05-14 08:00] VITALS: BP 106/82
[2018-05-14 15:00] VITALS: BP 110/66
--- NOTE | 2018-05-14 17:25 | NUR ---
ASSUMED CARE AT 0700. AXOX4. ISO FOR INFLUENZA B. EVALUATED BY , DAJUAN. ATB CHANGED TO ROCEPHINE. D/C ZOSYN. SEEN BY . NNO AT THIS TIME. RECEIVED PT/OT EVAL. SPLINT INTACT ON L HAND. REDRESSED PRN. PAIN MANAGEMENT CHANGED FROM NORCO TO OXYCODONE FOR BETTER PAIN MANAGEMENT. PT REPORTS GREATER RELIEF WITH OXYCODONE. AT BEDSIDE. NO S/S ACUTE DISTRESS NOTED OR REPORTED AT THIS TIME. WILL CONT TO MONITOR FOR ANY CHANGES IN CONDITION.
[2018-05-14 19:18] VITALS: BP 107/62
[2018-05-15 02:36] VITALS: BP 106/58
--- NOTE | 2018-05-15 03:19 | NUR ---
PROGRESS PT A/O X4, PAIN CONTROLLED WITH ORAL PAIN MEDS TAKING SPARINGLY. UP AD ROSETTA AMBULATING TO BATHROOM VOIDING QS. IV TO RAC WITHOUT REDNESS OR EDEMA NS@80CC/HR INFUSING WITHOUT DIFFICULTY. LEFT WRIST SPLINT REPLACED WITH WIDER ACEWRAP AND REWRAPPED, ELEVATED ON PILLOW LOOKS MORE COMFORTABLE AT THIS TIME. ACCUCHECKS AND SSI CONTINUE 4 UNITS FOR 235 AT HS. TELE INTACT READING VPACED WITH BBB WITH A RATE OF 70. DROPLET ISOLATION CONTINUES .CONTINUE TO MONITOR
[2018-05-15 03:40] LABS: HEMATOCRIT 27.5 % (37.0-47.0); HEMOGLOBIN 9.8 gm/dL (12.0-15.0); MCH 29.1 pg (26.0-34.0); MCHC 35.5 g/dL (28.0-37.0); RBC 3.35 mil/uL (4.20-5.00); RDW 14.8 % (10.5-14.5); WBC 6.4 thou/uL (4.0-11.0)
[2018-05-15 03:59] LABS: CALCIUM 8.1 mg/dL (8.5-10.1); CREATININE 1.9 mg/dL (0.6-1.0); POTASSIUM 3.7 mmol/L (3.5-5.1)
[2018-05-15 07:23] VITALS: BP 102/64
[2018-05-15 14:44] VITALS: BP 96/57
--- NOTE | 2018-05-15 19:53 | NUR ---
Pt stable, isolation mainatained. Pt is stanby assists and uses the call light appropriately. Splint on the left wrist intact. No issues verbalized. Blood glucose monitored and isuling given as indicated.
[2018-05-15 21:40] VITALS: BP 114/65
--- NOTE | 2018-05-15 22:11 | NUR ---
Assumed care at 1845. Pt resting in bed. Denies pain. Still on droplet precaution for influenza B. Left wrist splint CDI. No identified needs at the moment. Call light within reach. Will continue to monitor.
--- NOTE | 2018-05-15 22:25 | HC ---
[facility] [place] [address] CONSULTATION Name: GEORGI KAUFMAN Room #: 454-P ADM IN M.R.#: [id number] Admission: 05/12/18 Attend Phys: Jay Mast MD Discharge: Date of : 46 Report #: [id number] THIS REPORT FOR: //name// CC: ROBERT physician/PCP Jay Mast DATE OF SERVICE: 05/14/2018 REASON FOR CONSULTATION: I was asked to evaluate concerning Gram-positive bacilli bacteremia in the setting of influenza B positive. HISTORY OF PRESENT ILLNESS: The patient is a 68-year-old with history of diabetes, chronic kidney disease, atrial fibrillation, who presented with 24-hour history of generalized weakness, myalgias, arthralgias, lightheadedness and vertigo. She actually fell several days prior to this and fractured her left fifth metacarpal. She was placed in a splint. She has had minimal cough or sputum production. No chest pain. No syncopal episodes. She fell once in the ER, but did not hit her head. She is anticoagulated with Xarelto. No other ill persons at home. She was brought in by her . Since here, she has had temperature up to 100 degrees. Influenza B antigen was positive. She had blood cultures drawn, two of which is showing gram-positive bacilli. Identification is pending. REVIEW OF SYSTEMS: Ten-point review was negative other than what is described above. ALLERGIES: ASPIRIN WITH HIVES. MEDICATIONS: As noted on her MAR, which were reviewed, now on Zosyn and Tamiflu. PAST MEDICAL HISTORY: Atrial fibrillation, AV node ablation, diabetes, hypertension, hyperlipidemia, permanent pacemaker for sick sinus syndrome, gastroesophageal reflux, congestive heart failure, hysterectomy, tonsillectomy, left breast biopsy, umbilical herniorrhaphy. Right chest empyema, status post thoracotomy and decortication. Pericardial effusion, chronic kidney disease. FAMILY HISTORY: Noncontributory. SOCIAL HISTORY: Nonsmoker, no significant alcohol intake. PHYSICAL EXAMINATION: VITAL SIGNS: Afebrile and hemodynamically stable. GENERAL: The patient is sitting up in her chair, in no distress. She was conversant. SKIN: Without rash or decubitus. Left hand was in a splint. Splint was taken [address] [address] CONSULTATION Name: GEORGI KAUFMAN [place] Room #: 454-P [facility] IN M.R.#: [id number] Admission: 05/12/18 Attend Phys: Jay Mast MD Discharge: Date of : 46 Report #: [id number] and hand examined. She had ecchymosis involving the palm of her lateral hand. No open lesions. HEENT: Eyes without scleral icterus or conjunctivitis. Mouth without mucositis. NECK: Supple. LUNGS: Clear. HEART: Regular, without murmur, gallop or rub. ABDOMEN: Soft, nontender, no hepatosplenomegaly or mass. EXTREMITIES: 1+ peripheral edema in lower extremities below the knee. Cranial nerves intact. Strength in her upper and lower extremities equal and normal. Sensation to touch both upper and lower extremities normal. LABORATORY STUDIES: Sodium 136, potassium 3.7, bicarbonate 1.3, creatinine 1.9, AST 63, ALT 42, alkaline phosphatase 195, bilirubin 0.7. Hemoglobin 10, WBC 9.9, platelet count 195,000. Urinalysis unremarkable. Blood cultures as noted above. Influenza B positive. X-ray of her hand showed fracture, left fifth metacarpal. Chest x-ray showed vascular prominence. No consolidation. CT of the head, no acute change. IMPRESSION: 1. Influenza B. I suspect this explains her presentation. 2. Gram-positive bacilli bacteremia. This would typically be a contaminant, though with 2 positive cultures. We will need to monitor pending identification. 3. Falls and lightheadedness feeling, I suspect related to influenza. 4. Chronic kidney disease. 5. Anemia. 6. Sick sinus syndrome with permanent pacemaker. In the setting of 1 positive blood culture set, we will need to wait for identification before considering further evaluation. RECOMMENDATION: Continue with ceftriaxone. Await blood cultures' identification. Continue Tamiflu for 5 days total. Adjusted for renal insufficiency. Also, we will repeat blood cultures today. <ELECTRONICALLY SIGNED> By: Cyrus Menendez MD 05/15/18 2225 [id number] [id number] Cyrus Menendez MD /nt
[2018-05-16 07:48] VITALS: BP 139/76
--- NOTE | 2018-05-16 14:44 | NUR ---
Pt stable, up at karl and is independent of all adls. No concerns voice. Ortho consults called out. Pt has anion the left hand, pain medication given.
[2018-05-16 17:20] VITALS: BP 129/76
[2018-05-16 20:51] VITALS: BP 120/76
[2018-05-17 05:04] VITALS: BP 136/78
--- NOTE | 2018-05-17 07:01 | NUR ---
Assumed care at 1845. Pt resting in bed. Denies chest pain. Splint clean dry and intact. No identified needs. Will continue to monitor.
[2018-05-17 07:21] VITALS: BP 123/76
[2018-05-17 09:13] LABS: HEMATOCRIT 29.6 % (37.0-47.0); HEMOGLOBIN 10.4 gm/dL (12.0-15.0); MCH 29.1 pg (26.0-34.0); MCV 83.3 fL (80.0-100.0); RBC 3.56 mil/uL (4.20-5.00); WBC 6.4 thou/uL (4.0-11.0)
[2018-05-17 09:24] LABS: CALCIUM 8.6 mg/dL (8.5-10.1); CREATININE 1.2 mg/dL (0.6-1.0); MAGNESIUM 1.8 mg/dL (1.8-2.4); POTASSIUM 4.1 mmol/L (3.5-5.1)
--- NOTE | 2018-05-17 12:17 | HC ---
[facility] [place] [address] CONSULTATION Name: GEORGI KAUFMAN Room #: 454-P ADM IN M.R.#: [id number] Admission: 05/12/18 Attend Phys: Jay Mast MD Discharge: Date of : 46 Report #: [id number] THIS REPORT FOR: //name// CC: ROBERT physician/PCP Jay Mast DATE OF SERVICE: 05/16/2018 CHIEF COMPLAINT: Left hand fifth metacarpal fracture. HISTORY OF PRESENT ILLNESS: This 68-year-old female lives at home independently. She fell at home about 5 days ago. She has multiple areas of mild bruising and contusion, but no other major injuries. She did strike her left hand and x-rays reveal a fracture at the fifth metacarpal neck. This was placed in a well-padded splint. She has remained in the hospital because of other general medical and pulmonary problems, possibly including the flu. She seems to be making progress, but is uncertain about when she will be discharged home. Today, she is comfortable and functioning nicely and seems to be gaining strength, and is independent. The left hand is well supported in a fiberglass well-padded splint. The splint is adjusted and skin inspected. There is mild bruising. There is some discomfort and swelling at the 5th metacarpal neck. Overall alignment seems satisfactory. X-rays of the hand have revealed a mildly comminuted and somewhat shortened and displaced fracture at the fifth metacarpal neck region. There is still satisfactory bony contact and alignment, although not perfect, is acceptable. I have had a lengthy discussion with the patient regarding this problem, reviewing further treatment options including further reduction and splinting or reduction under anesthesia with percutaneous pinning or open reduction with pinning and cerclage wires. She states she would prefer to avoid any surgical intervention and can tolerate some bony deformity with fracture shortening or mild angular change. Therefore, she prefers to continue in her current splint. She states she is quite comfortable and functional in the splint. I would suggest then a followup in our office in about 1 week as I will be out of the country on a mission trip for about 1 week. I have suggested followup with my partner, Dr. Escamilla. Hopefully, we can make arrangements for our visit sometime next week for routine followup. If this is not possible, then I will plan to see her back in the following week. In the meanwhile, she will continue with her current fiberglass splint for protection of the left fifth metacarpal fracture. <ELECTRONICALLY SIGNED> By: Fabien Marquez MD 05/17/18 1217 1250 1301 Fabien Marquez MD /nt
--- NOTE | 2018-05-17 15:15 | 2DMMODE ---
[facility] [address] [place] [address] 2 D/M-MODE ECHOCARDIOGRAM Name: MANDEEPGEORGI CORNELIA Room #: 454-P ADM IN M.R.#: [id number] Admission: 05/12/18 Attend Phys: Jay Mast MD Discharge: Date of : 46 Date of Service: 05/17/18 1334 Report #: [id number] THIS REPORT FOR: //name// APPROVED REPORT Study performed: 05/17/2018 11:58:50 EXAM: Comprehensive 2D, Doppler, and color-flow Echocardiogram Patient Location: Bedside Room #: 454 Status: routine BSA: 1.87 HR: 70 bpm BP: 123/76 mmHg Rhythm: Atrial Fibrillation Other Information Study Quality: Adequate Indications Atrial Fibrillation Pacemaker Bacteremia 2D Dimensions RVDd: 42.67 mm IVSd: 10.52 (7-11mm) LVOT Diam: 19.92 (18-24mm) LVDd: 46.43 mm PWd: 11.46 (7-11mm) Ascending Ao: 36.78 (22-36mm) LVDs: 25.27 (25-40mm) Aortic Root: 33.45 mm IVC: 23.00 mm Volumes Left Atrial Volume (Systole) Single Plane 4CH: 60.76 mL Aortic Valve AoV Peak Jeremiah.: 1.26 m/s AO Peak Gr.: 6.35 mmHg LVOT Max P.15 mmHg LVOT Max V: 0.89 m/s ANALILIA Vmax: 2.19 cm2 Mitral Valve MV Max Jeremiah.: 5.36 m/s MV Mean Jeremiah.: 4.24 m/s [facility] [address] [place] [address] 2 D/M-MODE ECHOCARDIOGRAM Name: GEORGI KAUFMAN Room #: 454-P ADM IN M.R.#: [id number] Admission: 05/12/18 Attend Phys: Jay Mast MD Discharge: Date of : 46 Date of Service: 05/17/18 1334 Report #: [id number] Pulmonary Valve PV Peak Jeremiah.: 0.94 m/s PV Peak Gr.: 3.50 mmHg Tricuspid Valve TR Peak Jeremiah.: 2.52 m/s RAP Estimate: 10.00 mmHg TR Peak Gr.: 25.43 mmHg Left Ventricle The left ventricle is normal size. apex is hypokinetic There is normal left ventricular wall thickness. The left ventricular systolic function is normal. The left ventricular ejection fraction is within the normal range. LVEF is 55-60%. This study is not technically sufficient to allow evaluation of the LV diastolic function due to atrial fibrillation. Right Ventricle The right ventricle is normal size. The right ventricular systolic function is normal. Atria Left atrium is dilated. Right atrium is dilated. Pacing wires seen. Aortic Valve The aortic valve is normal in structure. Trace aortic regurgitation. There is no aortic valvular stenosis. Mitral Valve There is mitral annular calcification. Moderate to severe mitral regurgitation No evidence of mitral valve stenosis. Tricuspid Valve The tricuspid valve is normal in structure. Moderate tricuspid regurgitation. Estimated PAP of 35-40 mmHg. Pulmonic Valve Pulmonic valve is not well visualized. Mild pulmonic regurgitation. Great Vessels The aortic root is normal in size. The ascending aorta is within upper limits of normal. IVC is dilated and collapses <50% with inspiration. [facility] [address] [place] [address] 2 D/M-MODE ECHOCARDIOGRAM Name: GEORGI KAUFMAN CORNELIA Room #: 454-P ADM IN M.R.#: [id number] Admission: 05/12/18 Attend Phys: Jay Mast MD Discharge: Date of : 46 Date of Service: 05/17/18 1334 Report #: [id number] Pericardium There is no pericardial effusion. <Conclusion> The left ventricle is normal size. apex is hypokinetic LVEF is 55-60%. This study is not technically sufficient to allow evaluation of the LV diastolic function due to atrial fibrillation. The right ventricle is normal size. Left atrium is dilated. Right atrium is dilated. Pacing wires seen. Trace aortic regurgitation. Moderate to severe mitral regurgitation Moderate tricuspid regurgitation. Estimated PAP of 35-40 mmHg. The aortic root is normal in size. There is no pericardial effusion. <ELECTRONICALLY SIGNED> By: Ryder Sanchez MD, [facility] 05/17/18 1334 1334 1334 Ryder Sanchez MD, [facility] /INF
[2018-05-17 15:46] VITALS: BP 122/71
--- NOTE | 2018-05-17 19:39 | NUR ---
Pt stable through out the shift. Asked for pain medication for her left hand once, medication given. Pt was seen by Dr. Menendez, diagnostics done. Pt had no fever, nausea or vomiting. Uses call light appropriately.
[2018-05-17 20:00] VITALS: BP 138/78
[2018-05-18 04:00] VITALS: BP 145/75
--- NOTE | 2018-05-18 05:15 | NUR ---
Assumed care at 1845. Pt resting in bed. Only asked for pain meds once for her left hand. No episode of syncope. Been ambulating to the bathroom with a steady gate. No identified needs at the moment. Call light within reach. Will continue to monitor.
--- NOTE | 2018-05-18 14:05 | NUR ---
PT DMITTED RELATED TO FALL WEAKNESS, FLU, LT METACARPAL FX. CM REVIEWED CHART AND SPOKE WITH CARE TEAM. CM MET WITH PT THIS DAY ID ORERED IV ABX. CM MET WITH PT AT BEDSIDE AND SHE INDICATED SHE WOULD LIKE TO DO OP INFUSION HERE AT [facility]. CM XAXED ORDERS AND THEY ARE ABLE TO ACCEPT PT FOR IV INFUSION. THEY WILL SET HER UP WITH A 1300 TREATMENT TIME. ROCIO WITH OP INFUSION WILL COME AND DISCUSS WITH PT. NO OTHER CM INTERVENTION INDICATED AT THIS TIME.
[2018-05-18 14:09] VITALS: BP 147/74
[2018-05-18 15:00] VITALS: BP 139/81
--- NOTE | 2018-05-18 15:14 | NUR ---
CARE TEAM INDICATED THAT DC IS NOW NOT ANTICIPATED OVER THE WEEKEND. CM NOTIFIED OP INFUSION. THEY ARE AWARE AND ARE ABLE TO PROVIDE SERVICES UPON DC. CM TO FOLLOW INDICATED WITH DC PLANNING.
--- NOTE | 2018-05-18 16:24 | NUR ---
VASCULAR ACCESS CONSULTED FOR [facility]LINE FOR ABX. PT'S LABS,MEDS,HISTORY,ORDER VERIFIED. DISCUSSED BENEFITS AND RISKS WITH PT,VERBALIZED UNDERSTANDING AND GAVE VERBAL CONSENT TO PROCEED. PT WAS PREPPED AND DRAPED FOR MAX BARRIER PRECAUTIONS. LETICIA BASILIC WAS WIDELY PATENT WITH USG.1% LIDOCAINE GIVEN SQ #4FR POWER MIDLINE TRIMMED TO 9CM INSERTED TO 0CM WITH BRISK BR. [facility]LINE SECURED AND RELEASED FOR IMMEDIATE USE PER PROTOCOL TO ANTHONY RUEDA
--- NOTE | 2018-05-18 19:38 | NUR ---
A/OX4, PAIN MANAGED WITH MEDICATIONS, ABLE TO MAKE NEEDS KNOWN. JL PLANNED FOR MONDAY MORNING. MIDLINE PLACED FOR OUTPATIENT INFUSION ONCE SHE IS DISCHARGED. CALLS APPROPRIATELY. CALL LIGHT IN REACH.
[2018-05-18 20:38] VITALS: BP 127/56
--- NOTE | 2018-05-19 03:46 | NUR ---
Pt. rested quietly at intervals during the night when checked on during frequent rounds. She c/o pain to her left hand and was given po pain med (see emar) with some pain relief noted. Pt. refused to have her bed alarm on. She has been calling out appropriately when needing assistance.
[2018-05-19 04:46] VITALS: BP 136/69
[2018-05-19 08:56] VITALS: BP 136/70
--- NOTE | 2018-05-19 16:45 | NUR ---
PT X4, PAIN MANAGED WITH MEDICATIONS, VSS, BS LOW THIS MORNING FOR THE SECOND DAY DR MARTEL MADE A CHANGE IN INSULIN. PLANS FOR A JL ON MONDAY PER CARDIOLOGY. PT TO BE NPO ON MONDAY AFTER DINNER. MAY DC HOME AFTER JL WITH OUTPATIENT INFUSSIONS. CALL LIGHT IN REACH. CALLS APPROPRIATELY.
[2018-05-19 17:10] VITALS: BP 143/77
[2018-05-19 19:32] VITALS: BP 129/65
[2018-05-20 04:05] VITALS: BP 121/62
--- NOTE | 2018-05-20 05:08 | NUR ---
Pt. rested quietly during the night when checked on during frequent rounds. She offers no c/o pain.
[2018-05-20 08:00] VITALS: BP 140/80
--- NOTE | 2018-05-20 16:16 | NUR ---
PT STABLE THROUGHOUT SHIFT. PT C/O PAIN WHICH WAS ADDRESSED WITH PAIN MEDS. PT RESTING COMFORTABLY.
[2018-05-20 18:56] VITALS: BP 122/52
[2018-05-21 04:09] VITALS: BP 132/64
--- NOTE | 2018-05-21 06:29 | NUR ---
Assumed care at 1845. Pt resting in bed. Has been NPO since midnight. She has an ECHO scheduled this morning. Dressing and splint on left hand CDI. Pt denies chest pain. No identified needs at the moment. Call light within reach. Will continue to monitor.
[2018-05-21 07:20] VITALS: BP 117/62
--- NOTE | 2018-05-21 09:08 | TEE ---
[facility] [email or web address] [place] [address] TRANSESOPHAGEAL ECHOCARDIOGRAM Name: GEORGI KAUFMAN Room #: 454-P ADM IN M.R.#: [id number] Admission: 05/12/18 Attend Phys: Jay Mast MD Discharge: Date of : 46 Date of Service: 05/21/18 0907 Report #: [id number] THIS REPORT FOR: //name// APPROVED REPORT Study performed: 05/21/2018 07:56:25 EXAM: Comprehensive 2D, Doppler, and color-flow Echocardiogram Patient Location: [facility] Room #: 454 Status: routine BSA: 1.83 HR: 71 bpm BP: 117/62 mmHg Rhythm: Pacemaker Other Information Study Quality: Good Indications Bacteremia, strep bovis, rule out endocarditis. Hx: pacemaker Procedure After obtaining informed consent, patient underwent transesophageal echo in the [employer]. Type of Sedation : Conscious Sedation Sedation was administered by Mercy Cruz RN. Sedation was achieved intravenously with: Versed (2) Fentanyl (50) Transesophageal probe was inserted and advanced into esophagus without difficulty by Gautam Padron MD. The JL was performed without complications. Throughout the procedure, the blood pressure, pulse oximetry, cardiac rhythm, and rate were monitored. The patient tolerated the procedure without adverse effects. Recovery from conscious sedation was uneventful and vital signs were stable. Left Ventricle The left ventricle is normal size. There is normal LV segmental wall motion. There is normal left ventricular wall thickness. Left ventricular systolic function is normal. [facility] [address] [place] [address] TRANSESOPHAGEAL ECHOCARDIOGRAM Name: GEORGI KAUFMAN Room #: 454-P ADM IN M.R.#: [id number] Admission: 05/12/18 Attend Phys: Jay Mast MD Discharge: Date of : 46 Date of Service: 05/21/18 0907 Report #: [id number] LVEF is 55%. Right Ventricle The right ventricle is normal size. The right ventricular systolic function is normal. Atria Left atrium is dilated. No thrombus is visualized in the left atrium or appendage. A PFO is noted with positive bubble study. Right atrium is dilated. Linear, highly mobile density in right atrium, probably represnting a Chiari network or embryologic remnant. Unusual appearance for thrombus or vegetation Pacemaker lead is present in the right atrium. Aortic Valve The aortic valve is normal in structure. Tiny mobile density adherent to non-coronary cusp leaflet. May represent small vegetation vs degenerative valve changes No aortic regurgitation is present. There is no aortic valvular stenosis. Mitral Valve The mitral valve is normal in structure. Moderate mitral regurgitation. No evidence of mitral valve stenosis. Tricuspid Valve The tricuspid valve is normal in structure. Mild tricuspid regurgitation. Pulmonic Valve The pulmonary valve is normal in structure. Great Vessels The aortic root is normal in size. The ascending aorta is normal in size. IVC is normal in size and collapses >50% with inspiration. Pericardium There is no pericardial effusion. Critical Notification Critical Value: Yes Physician Notified [facility] [address] [place] [address] TRANSESOPHAGEAL ECHOCARDIOGRAM Name: GEORGI KAUFMAN CORNEL[place] Room #: 454-P [facility] IN .R.#: [id number] Admission: 05/12/18 Attend Phys: Jay Mast MD Discharge: Date of : 46 Date of Service: 05/21/1807 Report #: [id number] Date: 05/21/2018 <Conclusion> Left ventricular systolic function is normal. There is normal LV segmental wall motion. LVEF is 55%. Left atrium is dilated. No thrombus is visualized in the left atrium or appendage. A PFO is noted with positive bubble study. Right atrium is dilated. Linear, highly mobile density in right atrium, probably representing a Chiari network, embryologic remnant. Unusual appearance for thrombus or vegetation Pacemaker lead is present in the right atrium. The aortic valve is normal in structure. Tiny mobile density adherent to non-coronary cusp leaflet. May represent small vegetation vs degenerative valve changes No aortic regurgitation or stenosis The mitral valve is normal in structure. Moderate mitral regurgitation. There is no pericardial effusion. <ELECTRONICALLY SIGNED> By: Gautam Padron MD, [facility] 05/21/18906 6 6 Gautam Padron MD, [facility] /INF
[2018-05-21 10:24] VITALS: BP 117/62
[2018-05-21] MEDS ORDERED: LEVEMIR SUBQ (13:37)
[2018-05-21] MEDS ORDERED: ROCEPHIN 11 GM/1001 IV (13:37)
[2018-05-21] MEDS ORDERED: PROBIOTIC1 EAC1 PO (13:37)
[2018-05-21] MEDS ORDERED: PERCOCET PO (13:37)
[2018-05-21] MEDS ORDERED: NORVASC5 MG PO (13:37)
--- NOTE | 2018-05-21 14:29 | NUR ---
CARE TEAM INDICATED THAT PT IS MEDICALLY STABLE TO DISHCARGE HOME THIS DAY. C MHAD ARRANGED OP INFUSION HERE AT [facility] MONDAY OF WEEK. CM CALLED AND NOTIFIED OP INFUSION CLINIC OF PT'S DC HOME TODAY AND SOC TOMORROW. MIROSLAVA INDICATED THAT THEY HAVE A 1300 CHAIR TIME OPEN FOR HER. NO OTHER CM INTERVENTION INDICATED AT TIME. CASE CLOSED.
--- NOTE | 2018-05-21 16:00 | NUR ---
pt stable throughout shift. pt went for davide today which she tolerated well. c/o pain which was addressed with medication. pt discharged home, given dc instructions, f/u instructions and information, rx. pt left unit via wheelchair to private vehicle.
== END 2018-05-21 17:23 | disposition home or self-care (01) | DRG 177 ==
LOC: ER 19:59 → EROBS 22:28 → 4W 22:28 → ENTRNSPT 05-21 16:34 → 4W 05-21 17:23
PROVIDERS: Internal Medicine; Nurse Practitioner Family; Physician Assistant; ADMIT Hospitalist
DX: J10.08 Influenza due to other identified influenza virus with other specified pneumonia (principal); N17.0 Acute kidney failure with tubular necrosis; J15.6 Pneumonia due to other Gram-negative bacteria; I50.30 Unspecified diastolic (congestive) heart failure; K62.5 Hemorrhage of anus and rectum; N17.9 Acute kidney failure, unspecified; I13.0 Hypertensive heart and chronic kidney disease with heart failure and stage 1 through stage 4 chronic kidney disease, or unspecified chronic kidney disease; E78.5 Hyperlipidemia, unspecified; E78.00 Pure hypercholesterolemia, unspecified; K21.9 Gastro-esophageal reflux disease without esophagitis; N18.3 Chronic kidney disease, stage 3 (moderate); E11.22 Type 2 diabetes mellitus with diabetic chronic kidney disease; D64.9 Anemia, unspecified; I49.5 Sick sinus syndrome; S62.337A Displaced fracture of neck of fifth metacarpal bone, left hand, initial encounter for closed fracture; M10.9 Gout, unspecified; K59.00 Constipation, unspecified; M62.84 Sarcopenia; I48.0 Paroxysmal atrial fibrillation; W18.39XA Other fall on same level, initial encounter; K64.9 Unspecified hemorrhoids; Z79.899 Other long term (current) drug therapy; Y93.89 Activity, other specified; Z95.0 Presence of cardiac pacemaker; Z90.710 Acquired absence of both cervix and uterus; Z88.6 Allergy status to analgesic agent; Z47.89 Encounter for other orthopedic aftercare; Z82.49 Family history of ischemic heart disease and other diseases of the circulatory system; Y92.098 Other place in other non-institutional residence as the place of occurrence of the external cause; Y99.8 Other external cause status
CPT/HCPCS: 10045; 27000

== ENCOUNTER → 2018-05-22 | Outpatient (CLI) | payer OTHER ==
[~2018-05-22] MED LIST changes: +PERCOCET PO; +PROBIOTIC1 EAC1 PO; +ROCEPHIN 11 GM/1001 IV
[2018-05-22 13:24] VITALS: BP 150/64
--- NOTE | 2018-05-22 14:29 | NUR ---
IN FOR CEFTRIAXONE INFUSION FOR BACTEREMIA. PATIENT STATED FELL AT HOME OUTSIDE AND BROKE HER LEFT LITTLE FINGER. SHE THEN DEVELOPED BACTEREMIA. LEFT HAND WRAPPED IN CORNELIO WRAP. PICC LINE SITE TO RIGHT UPPER ARM WNL. RECEIVED GOOD BLOOD RETURN AND FLUSHED EASILY. TOLERATED INFUSION WELL WITH NO ADVERSE REACTION NOTED. FLUSHED PICC LINE WITH 10 ML NS. DISMISSED IN STABLE CONDITION.
== END ==
LOC: OPONC 05-19 15:05
DX: R78.81 Bacteremia (principal); B95.5 Unspecified streptococcus as the cause of diseases classified elsewhere
CPT/HCPCS: 95000

== ENCOUNTER → 2018-05-23 | Outpatient (CLI) | payer OTHER ==
[~2018-05-23] MED LIST changes: +OZEMPIC0.25 MG/0. SUBQ; +TRAMADOL 50 MG50 MG PO
[2018-05-23 13:15] VITALS: BP 95/57
--- NOTE | 2018-05-23 14:06 | NUR ---
HERE FOR DAILY IV ANTIBIOTIC. REPORTS DOING WELL. HAD SOME CONSTIPATION ISSUES THAT RESOLVED YESTERDAY. DENIES FEVER/CHILLS OR FEELING BADLY IN ANY WAY. DOES HAVE QUITE A LOT OF BILAT LE EDEMA, FEET TO KNEES. WEIGHED PT TODAY AND BY THIS SCALE SHE IS UP 20# FROM HER ADMISSION WT TO THE HOSPITAL. STATES SHE IS TAKING HER TORSEMIDE. ENCOURAGED LOW SODIUM DIET, ELEVATING FEET WHEN AT REST AND SOME WALKING TO SEE IF THIS WEIGHT WILL SLOWLY DRIFT DOWN. IF NOT, WILL NOTIFY PHYSICIAN FOR ADDITIONAL ORDERS. LUNGS SOUND CLEAR, NO C/O RESP DISTRESS. [facility] INFUSES WELL, NO BLOOD RETURN OBTAINED. PT TOLERATED INFUSION WITHOUT INCIDENT. SAW ORTHO DOCTOR TODAY AND L 4TH/5TH FINGERS AND HAND RE-WRAPPED AT THAT TIME. WILL PLAN TO HAVE LABS HERE TOMORROW AND SEE DR. BENITO ON MONDAY MORNING. DISMISSED IN STABLE CONDITION WITH HER DAUGHTER.
== END ==
LOC: OPONC 05-22 06:41
DX: R78.81 Bacteremia (principal); B95.5 Unspecified streptococcus as the cause of diseases classified elsewhere
CPT/HCPCS: 95000

== ENCOUNTER → 2018-05-24 | Outpatient (CLI) | payer OTHER ==
[~2018-05-24] MED LIST changes: -OZEMPIC0.25 MG/0. SUBQ; -TRAMADOL 50 MG50 MG PO
[2018-05-24 13:10] VITALS: BP 94/46
[2018-05-24 13:31] LABS: HEMATOCRIT 30.7 % (37.0-47.0); HEMOGLOBIN 10.2 gm/dL (12.0-15.0); MCH 28.3 pg (26.0-34.0); MCHC 33.2 g/dL (28.0-37.0); MCV 85.3 fL (80.0-100.0); RBC 3.6 mil/uL (4.20-5.00); WBC 5.2 thou/uL (4.0-11.0)
--- NOTE | 2018-05-24 13:45 | NUR ---
HERE FOR DAILY IV CEFTRIAXONE IV. REPORTS DOING WELL. HAVING PAIN L HAND BUT TRYING NOT TO TAKE HER NARCOTIC PAIN MED. ALSO FEELS THAT THE SPLINT/DRESSING IS RUBBING WRONG ON THE OUTER PART OF HER WRIST AND PLANS TO GO BACK IN TODAY TO HAVE THEM REDRESS IT. DENIES FEVER/CHILLS. EATING WELL. NO N/V OR DIARRHEA. [facility]LINE DOES NOT HAVE BLOOD RETURN BUT FLUSHES EASILY. INFUSION COMPLETED WITOUT INCIDENT. PT DISMISSED IN STABLE CONDITION. SCHEDULED TO RETURN AGAIN IN THE MORNING.
[2018-05-24 13:46] LABS: POTASSIUM 3.9 mmol/L (3.5-5.1); TOTAL BILIRUBIN 0.4 mg/dL (<0.1-1.0); TOTAL PROTEIN 5.9 g/dL (6.4-8.2)
== END ==
LOC: CV 00:45 → OPONC 00:45 → CV 08:45
PROVIDERS: Specialist
DX: R78.81 Bacteremia (principal)
CPT/HCPCS: 95000

== ENCOUNTER → 2018-05-25 | Outpatient (CLI) | payer OTHER ==
[2018-05-25 09:50] VITALS: BP 118/59
[2018-05-25 11:29] LABS: POTASSIUM 3.9 mmol/L (3.5-5.1)
== END ==
LOC: OPONC 02:20
PROVIDERS: Specialist
DX: R78.81 Bacteremia (principal); B95.5 Unspecified streptococcus as the cause of diseases classified elsewhere
CPT/HCPCS: 95000

== ENCOUNTER → 2018-05-26 | Outpatient (CLI) | payer OTHER | LOC: OPONC 09:09 | DX: R78.81 Bacteremia (principal); B95.5 Unspecified streptococcus as the cause of diseases classified elsewhere | CPT/HCPCS: 95000 ==

== ENCOUNTER → 2018-05-27 | Outpatient (CLI) | payer OTHER | LOC: OPONC 05-26 07:24 | DX: R78.81 Bacteremia (principal); B95.5 Unspecified streptococcus as the cause of diseases classified elsewhere | CPT/HCPCS: 95000 ==

== ENCOUNTER → 2018-05-28 | Outpatient (CLI) | payer OTHER ==
[2018-05-28 13:41] VITALS: BP 156/71
--- NOTE | 2018-05-28 13:46 | NUR ---
IN FOR DAILY CEFTRIAXONE INFUSION. DENIED FEVER/CHILLS, N/V, DIARRHEA. TOLERATED INFUSION WELL WITH NO ADVERSE REACTION NOTED. DISMISSED IN STABLE CONDITION.
== END ==
LOC: OPONC 07:50
DX: R78.81 Bacteremia (principal); B95.5 Unspecified streptococcus as the cause of diseases classified elsewhere
CPT/HCPCS: 95000

== ENCOUNTER → 2018-05-29 | Outpatient (CLI) | payer OTHER ==
[2018-05-29 15:03] VITALS: BP 134/69
--- NOTE | 2018-05-29 16:14 | NUR ---
IN FOR DAILY CEFTRIAXONE INFUSION. STATED TOOK A PAIN PILL BEFORE COMING AND SHE HAS NO PAIN TODAY. DENIED FEVER/CHILLS, DIARRHEA, N/V. TOLERATED INFUSION WELL WITHOUT INCIDENT. UNABLE TO GET BLOOD RETURN FROM [facility] BUT FLUSHES EASILY. DISMISSED IN STABLE CONDITION.
== END ==
LOC: OPONC 00:27
DX: R78.81 Bacteremia (principal); B95.5 Unspecified streptococcus as the cause of diseases classified elsewhere
CPT/HCPCS: 95000

== ENCOUNTER → 2018-05-30 | Outpatient (CLI) | payer OTHER ==
[2018-05-30 13:10] VITALS: BP 113/55
--- NOTE | 2018-05-30 13:35 | NUR ---
HERE FOR DAILY IV CEFTRIAXONE INFUSION. REPORTS DOING WELL. NO CONCERNS NOTED OTHER THAN PERSISTENT DISCOMFORT IN L HAND. STATES THAT ONE PAIN PILL IS EFFECTIVE BUT TRIES TO LIMIT HER USE OF THEM. EDEMA SOMEWHAT BETTER IN BILAT LE ACCORDING TO PT. EATING/DRINKING WELL. TOLERATED INFUSION PER [facility]LINE WITOUT INCIDENT. DISMISSED IN STABLE CONDITION. SCHEDULED TO RETURN TOMORROW AFTERNOON.
== END ==
LOC: OPONC 00:47
DX: R78.81 Bacteremia (principal); B95.5 Unspecified streptococcus as the cause of diseases classified elsewhere
CPT/HCPCS: 95000

== ENCOUNTER → 2018-05-31 | Outpatient (CLI) | payer OTHER ==
[~2018-05-31] MED LIST changes: +OZEMPIC0.25 MG/0. SUBQ
[2018-05-31 13:25] VITALS: BP 142/52
[2018-05-31 13:46] LABS: HEMATOCRIT 30.4 % (37.0-47.0); HEMOGLOBIN 10.7 gm/dL (12.0-15.0); MCH 29.2 pg (26.0-34.0); MCHC 35.2 g/dL (28.0-37.0); MCV 82.8 fL (80.0-100.0); RBC 3.67 mil/uL (4.20-5.00); RDW 15.2 % (10.5-14.5); WBC 4.7 thou/uL (4.0-11.0)
[2018-05-31 14:06] LABS: ALBUMIN 3.2 g/dL (3.4-5.0); CALCIUM 8.8 mg/dL (8.5-10.1); CREATININE 2.1 mg/dL (0.6-1.0); POTASSIUM 4.6 mmol/L (3.5-5.1); TOTAL BILIRUBIN 0.5 mg/dL (<0.1-1.0); TOTAL PROTEIN 6.1 g/dL (6.4-8.2)
--- NOTE | 2018-05-31 14:32 | NUR ---
IN FOR DAILY CEFTRIAXONE INFUSION. STATED FEELING WELL. MAIN COMPLAINT LEFT HAND PAIN. TAKING HER STRONGER PAIN MEDICINE AND HELPFUL. NO OTHER CONCERNS. TOLERATED INFUSION WITHOUT INCIDENT. [facility]LINE DRESSING CHANGED. NO BLOOD RETURN BUT FLUSHES EASILY. LABS DRAWN. WEIGHT; 196.3. STATES DECREASED EDEMA TO LEGS. DISMISSED IN STABLE CONDITION. WILL SEE DR. BENITO HERE TOMORROW.
== END ==
LOC: OPONC 00:33
PROVIDERS: Specialist
DX: R78.81 Bacteremia (principal); B95.5 Unspecified streptococcus as the cause of diseases classified elsewhere
CPT/HCPCS: 95000

== ENCOUNTER → 2018-06-01 | Outpatient (CLI) | payer OTHER ==
[2018-06-01 10:20] VITALS: BP 102/45
--- NOTE | 2018-06-01 11:20 | NUR ---
PT HERE FOR DAILY IV CEFTRIAXONE AND TO SEE DR. BENITO TODAY. REPORTS DOING WELL IN GENERAL. STATES DTR RE-WRAPPED L HAND YESTERDAY WITH SPLINT AND CORNELIO WRAP AND IT FEELS BETTER. USES PAIN MED SPARINGLY, MOSTLY AT HS SO SHE CAN SLEEP. DENIES N/V/DIARRHEA. HAS SOME CONSTIPATION. DENIES FEVER/CHILLS. DOES C/O A FEW RED, ITCHY, NON-RAISED SPLOTCHES ON R FOREARM. STATES STARTED APPEARING ON MON OF THIS WEEK. EDEMA IMPROVING BILAT LE. BLOOD SUGARS HAVE BEEN ELEVATED. CHECKED FINGERSTICK THIS AM SINCE PT STATES SHE WAS UP OVER 500 AFTER RETURNING HOME YESTERDAY. DOWN TO 169 THIS AM. PT HAS NOT YET HAD BREAKFAST. ENCOURAGED GOOD BLOOD SUGAR CONTROL TO HELP WITH HEALING PROCESS. PT DENIES BEING SYMPTOMATIC WHEN BLOOD SUGARS SWING TO EXTREMES. SEEN BY DR. BENITO TODAY WHO NOTED LABS AND REDDENED AREAS ON FOREARM. HE ADVISED EITHER CLARITIN OR ZYRTEC ONCE DAILY AND TO REPORT IF THERE IS AN INCREASE IN NUMBER OR INTENSITY OF THESE AREAS. HE ALSO ASKED FOR PT TO KEEP A BLOOD GLUCOSE LOG AND REPORT THESE TO DR. BARNETT FOR MANAGEMENT. PT STATES SHE CHECKS HER SUGARS 3-4X DAILY, TAKES HER SLIDING SCALE INSULIN WITH MEALS AND LEVIMIR AT HS. DR. BENITO ALSO WANTING PT TO GET HER COLONOSCOPY DONE. PT STATES SHE HAS BEEN AVOIDING GETTING THIS SCHEDULED IT IS SUCH AN UNCOMFORTABLE PROCESS FROM PREP THROUGH PROCEDURE. SHE HAS ALSO DELAYED SETTING UP HER [facility] F/U WITH HER PCP, DR. ABRNETT. FEELS SHE IS IMPOSING TOO MUCH ON HER CHILDREN TO GET HER TO APPTS. SPOKE WITH PT ABOUT IMPORTANCE OF BOTH OF THESE APPTS AND REASON FOR BOTH. CALLED DR. LEONARD'S OFFICE, SPOKE WITH THE NURSE AND LEFT A MESSAGE FOR THE [employer] TO GET PT SET UP FOR A COLONOSCOPY SOON. CALLED DR. BARNETT'S OFFICE AND SET UP F/U APPT WITH HIM FOR MONDAY, 06/05. PT ALREADY HAS F/U APPT SET UP WITH CARDIOLOGY AND ORTHO. REVIEWED ALL THESE APPT TIMES WITH PT. INSTRUCTED PT TO TAKE HER BLOOD GLUCOSE LOG WITH HER TO THE PCP APPT. ALSO ENCOURAGED PT TO SET THE COLONOSCOPY APPT UP WHEN DR. LEONARD'S [employer] PLUMBER CALLS HER. PT VERBALIZED UNDERSTANDING OF PLAN. ALSO REMINDED PT TO START ON EITHER CLARITIN OR ZYRTEC PER DR. BENITO'S RECOMMENDATION AND MONITOR THE REDDENED AREAS ON HER ARMS. PT TOLERATED TODAY'S INFUSION WITHOUT INCIDENT AND DISMISSED IN STABLE CONDITION. WILL REPOR TO THE ED FOR THE WEEKEND INFUSIONS AND RETURN HERE AGAIN ON MONDAY.
== END ==
LOC: OPONC 06:05
DX: R78.81 Bacteremia (principal); B95.5 Unspecified streptococcus as the cause of diseases classified elsewhere; E11.9 Type 2 diabetes mellitus without complications; I33.0 Acute and subacute infective endocarditis; B95.4 Other streptococcus as the cause of diseases classified elsewhere; N18.9 Chronic kidney disease, unspecified; D63.1 Anemia in chronic kidney disease; L98.9 Disorder of the skin and subcutaneous tissue, unspecified; Z95.0 Presence of cardiac pacemaker
CPT/HCPCS: 95000

== ENCOUNTER → 2018-06-02 | Outpatient (CLI) | payer OTHER ==
[~2018-06-02] MED LIST changes: +TRAMADOL 50 MG50 MG PO
== END ==
LOC: OPONC 06-01 06:10
DX: R78.81 Bacteremia (principal); B95.5 Unspecified streptococcus as the cause of diseases classified elsewhere
CPT/HCPCS: 95000

== ENCOUNTER → 2018-06-03 | Outpatient (CLI) | payer OTHER | LOC: OPONC 06:13 | DX: R78.81 Bacteremia (principal); B95.5 Unspecified streptococcus as the cause of diseases classified elsewhere | CPT/HCPCS: 95000 ==

== ENCOUNTER → 2018-06-04 | Outpatient (CLI) | payer OTHER ==
[2018-06-04 13:10] VITALS: BP 126/54
--- NOTE | 2018-06-04 13:13 | NUR ---
IN FOR DAILY CEFTRIAXONE INFUSION. STATED FEELING WELL. DENIED N/V, F/C, DIARRHEA. ASKED PATIENT IF SHE WAS ABLE TO GET HER BLOOD SUGAR DOWN MONDAY AND SHE STATED SHE GOT IT DOWN BELOW 150. PATIENT STATED SHE CHECKS HER BLOOD GLUCOSE 3 TIMES A DAY UNLESS SHE SKIPS A MEAL AND THEN DOES NOT CHECK IT. INSTRUCTED PATIENT TO CHECK 3 TIMES A DAY WHETHER SHE EATS OR NOT. DISCUSSED COUNTING CARBS AND HAVING BETTER CONTROL OF BLOOD SUGAR. PATIENT NOT COMPLIANT SHE COULD BE. DTR ELIZABETH STATED PATIENT DOES NOT WATCH WHAT SHE EATS VERY CLOSELY. PATIENT STATES SHE TRIES. DTR STATED SHE WILL LOOK ONLINE AND HELP PATIENT EAT BETTER WHILE SHE IS STAYING WITH HER. TOLERATED INFUSION WELL WITHOUT INCIDENT. NO BLOOD RETURN FROM MIDLINE BUT FLUSHES EASILY. TO RETURN TOMORROW FOR NEXT INFUSION. DISMISSED IN STABLE CONDITION. RASH TO RIGHT ARM MUCH BETTER.
== END ==
LOC: OPONC 00:27
DX: R78.81 Bacteremia (principal); B95.5 Unspecified streptococcus as the cause of diseases classified elsewhere
CPT/HCPCS: 95000

== ENCOUNTER → 2018-06-05 | Outpatient (CLI) | payer OTHER ==
[2018-06-05 13:51] VITALS: BP 124/64
== END ==
LOC: OPONC 00:55
DX: R78.81 Bacteremia (principal); B95.5 Unspecified streptococcus as the cause of diseases classified elsewhere
CPT/HCPCS: 95000

== ENCOUNTER → 2018-06-06 | Outpatient (CLI) | payer OTHER ==
[2018-06-06 13:10] VITALS: BP 99/49
--- NOTE | 2018-06-06 13:40 | NUR ---
HERE FOR DAILY IV CEFTRIAXONE. REPORTS DOING WELL OR BETTER IN MANY ASPECTS. STATES SHE HAS ADDED A NEW MEDICATION FOR HER DIABETES, HER LEG EDEMA IS IMPROVED AND THE RED, ITCHY SPLOTCHES ON R FORERARM ARE GONE. FEELS THESE MAY HAVE BEEN BUG BITES. HAS SCHEDULED HER COLONSCOPY FOR 06/22. SAW DR. BARNETT YESTERDAY. SAW ORTHO THIS MORNING AND L HAND REWRAPPED. STATES SHE WAS TOLD THAT SHE WILL NEED TO KEEP THIS SPLINTED AND WRAPPED FOR 2 MORE WEEK. PAIN HAS IMPROVED IN L HAND. HOWEVER, HAVING NEW PAIN R SHOULER WHICH SHE DESCRIBES ARTHRITIC PAIN, STATES IT IS IN THE JOING. CANNOT TAKE NSAIDS PER HER PHYSICIAN AND DID NOT HAVE ANY OPIOID TO TAKE AT HER HOUSE SO JUST MANAGING WITH TYLENOL FOR NOW. DENIES ANY FEVER/SWEATS/CHILLS. EATING WELL. NO OTHER CONCERNS NOTED. TOLERATED TODAY'S INFUSION WITHOUT INCIDENT. DISMISSED IN STABLE CONDITION. SCHEDULED TO RETURN IN THE MORNING.
== END ==
LOC: OPONC 00:14
DX: R78.81 Bacteremia (principal); B95.5 Unspecified streptococcus as the cause of diseases classified elsewhere
CPT/HCPCS: 95000

== ENCOUNTER 2018-06-07 16:08 | Emergency (ER) | payer OTHER ==
[~2018-06-07] VITALS: Ht 167.6 cm; Wt 87.5 kg
--- NOTE | ~2018-06-07 | EKG ---
[place] [address] [facility] [place] [address] ELECTROCARDIOGRAM REPORT Name: KAUFMANGEORGI CORNELIA Room #: [facility] Angie#: [id number] Admission: 06/07/18 Attend Phys: Discharge: Date of : 46 Report #: [id number] THIS REPORT FOR: //name// [facility] ED Test Date: 2018-06-07 Test Time: 17:10:08 Pat Name: GEORGI KAUFMAN Department: Room: Gender: F Pe Manager: tamie : 1950 Requested By: Jt Treadwell Order Number: [id number] MD: Measurements Intervals [place] Rate: 87 P: 29 OK: 208 QRS: 259 QRSD: 148 T: 72 QT: 443 QTc: 533 Interpretive Statements Atrial-sensed ventricular-paced complexes No further analysis attempted due to paced rhythm Compared to ECG 05/12/2018 20:29:48 Atrial fibrillation no longer present [email or web address] By: 09 09 Bradford eFlder MD /SILVER
[~2018-06-07 16:08] MED LIST changes: -TRAMADOL 50 MG50 MG PO
[2018-06-07] MEDS ORDERED: OZEMPIC0.25 MG/0. SUBQ (16:35)
[2018-06-07] MEDS ORDERED: TRAMADOL 50 MG50 MG PO (16:37)
[2018-06-07 17:29] LABS: HEMATOCRIT 34.3 % (37.0-47.0); MCH 29.1 pg (26.0-34.0); MCHC 34.9 g/dL (28.0-37.0); MCV 83.3 fL (80.0-100.0); PLATELET COUNT 180 thou/uL (150-400); RBC 4.12 mil/uL (4.20-5.00); RDW 15.7 % (10.5-14.5); WBC 6.5 thou/uL (4.0-11.0)
[2018-06-07 17:45] LABS: ANION GAP 13 mmol/L (7-16); BUN 54 mg/dL (7-18); CALCIUM 9.4 mg/dL (8.5-10.1); CHLORIDE 99 mmol/L (98-107); CO2 26 mmol/L (21-32); CREATININE 2.5 mg/dL (0.6-1.0); GLUCOSE 182 mg/dL (74-106); POTASSIUM 3.7 mmol/L (3.5-5.1); SODIUM 138 mmol/L (136-145)
[2018-06-07 17:50] LABS: ALBUMIN 3.6 g/dL (3.4-5.0); SGOT 26 U/L (15-37); SGPT 23 U/L (30-65); TOTAL BILIRUBIN 0.4 mg/dL (<0.1-1.0); TOTAL PROTEIN 6.5 g/dL (6.4-8.2); TROPONIN-I <0.06 ng/mL (<0.06)
[2018-06-07 17:51] LABS: ABSOLUTE NEUTROPHILS 5.2 thou/uL (1.4-8.2); ANISOCYTOSIS 1+
[2018-06-07 18:20] VITALS: BP 113/62
[2018-06-08] MEDS ORDERED: OZEMPIC0.25 MG/0. SUBQ (11:28)
== END 2018-06-07 18:21 | disposition home or self-care (01) ==
LOC: ER 16:08
PROVIDERS: Emergency Medicine
DX: R53.83 Other fatigue (principal); R79.89 Other specified abnormal findings of blood chemistry; I48.91 Unspecified atrial fibrillation; I13.0 Hypertensive heart and chronic kidney disease with heart failure and stage 1 through stage 4 chronic kidney disease, or unspecified chronic kidney disease; E11.22 Type 2 diabetes mellitus with diabetic chronic kidney disease; N18.3 Chronic kidney disease, stage 3 (moderate); I50.30 Unspecified diastolic (congestive) heart failure; K21.9 Gastro-esophageal reflux disease without esophagitis; E78.5 Hyperlipidemia, unspecified; Z88.6 Allergy status to analgesic agent; Z95.0 Presence of cardiac pacemaker; Z90.89 Acquired absence of other organs; Z90.710 Acquired absence of both cervix and uterus; Z79.4 Long term (current) use of insulin

== ENCOUNTER → 2018-06-07 | Outpatient (CLI) | payer OTHER ==
[2018-06-07 13:40] VITALS: BP 86/45
[2018-06-07 14:11] LABS: HEMATOCRIT 33.8 % (37.0-47.0); HEMOGLOBIN 11.8 gm/dL (12.0-15.0); MCH 29.3 pg (26.0-34.0); MCHC 34.8 g/dL (28.0-37.0); RBC 4.03 mil/uL (4.20-5.00); RDW 15.1 % (10.5-14.5); WBC 6.1 thou/uL (4.0-11.0)
[2018-06-07 14:41] LABS: ALBUMIN 3.4 g/dL (3.4-5.0); CREATININE 2.5 mg/dL (0.6-1.0); POTASSIUM 3.6 mmol/L (3.5-5.1); TOTAL BILIRUBIN 0.3 mg/dL (<0.1-1.0); TOTAL PROTEIN 6.3 g/dL (6.4-8.2)
--- NOTE | 2018-06-07 15:23 | NUR ---
PT HERE FOR DAILY IV CEFTRIAXPONE. REPORTS FEELING WELL. STATES R SHOULDER PAIN NOW RESOLVED AFTER USING HEATING PAD YESTERDAY. MINIMAL PAIN L HAND. STATES HAD N/V THROUGH THE NIGHT LAST NIGHT--THINKS THIS MAY BE FROM SOMETHING SHE ATE. TOLERATED INFUSION TODAY WITHOUT INCIDENT. MIDLINE DRESSING CHANGE DONE, FLUSHES EASILY BUT DOES NOT HAVE A BLOOD RETURN. LABS DRAWN PERIPHERALLY THEN PT SENT HOME. LAB RESULTS SHOW ELEVATING BUN AND CREATININE. FAXED RESULTS AND CALLED TO THE OFFICE TO LET DR. BENITO KNOW. BP ALSO LOW TODAY AND YESTERDAY BUT PT DENIES FEELING SYMPTOMATIC. DR. BENITO WILL SEE PT HERE IN THE CLINIC TOMORROW WHEN SHE RETURNS.
--- NOTE | 2018-06-07 15:31 | NUR ---
CALLED PT'S PHONE TO LET HER KNOW THAT HER BUN/CR ARE UP. DAUGHTER, ELIZABETH, ANSWERED THE PHONE. LET HER KNOW ABOUT HER MOM'S LABS AND VOICED CONCERN THAT POSSIBLY THIS AND HER N/V ARE RELATED. DTR SAID THAT HER MOM PHONED HER UPON ARRIVAL HOME TO ASK FOR HELP INTO THE HOUSE FEELING THAT HER BLOOD SUGAR WAS LOW. SHE HELPED PT INTO THE HOUSE AND CHECKED THE BLOOD GLUCOSE WHICH WAS OK. DTR STATES THAT HER MOM IS VOMITING AGAIN AND THE QUANTITY BOTH NOW AND LAST NOC ARE QUITE LARGE. STATES HER MOM DOESN'T LOOK LIKE SHE IS FEELING WELL. ADVISED HER TO TAKE HER MOM TO THE ED AT [facility] FOR EVALUATION. DTR AGREES AND STATES SHE WILL BRING HER IN THIS AFTERNOON.
== END ==
LOC: OPONC 01:50
PROVIDERS: Specialist
DX: R78.81 Bacteremia (principal); B95.5 Unspecified streptococcus as the cause of diseases classified elsewhere
CPT/HCPCS: 95000

== ENCOUNTER → 2018-06-08 | Outpatient (CLI) | payer OTHER ==
[~2018-06-08] MED LIST changes: +TRAMADOL 50 MG50 MG PO
[2018-06-08 09:30] VITALS: BP 78/43
[2018-06-08 10:10] VITALS: BP 78/40
[2018-06-08 11:12] VITALS: BP 99/53
--- NOTE | 2018-06-08 13:52 | NUR ---
ARRIVED TODAY STILL NOT FEELING WELL. STATES DID GO TO THE ED YESTERDAY, WAS EVALUATED, WATCHED, DEEMED TO BE STABLE THEN DISCHARGED. NO FLUIDS GIVEN. NO CHANGES IN MEDICATIONS. DTR AND PT STATE THAT SHE COULD HARDLY WALK TO GET TO THE CAR OR INTO THE ED YESTERDAY BUT FELT BETTER UPON LEAVING. HAD MORE NAUSEA AND VOMITING LAST EVENING. DTR STATES LARGE VOLUME, LIQUIDS PLUS UNDIGESTED FOOD FROM MEAL HOURS PRIOR. N/V HAS BEEN GOING ON NOW SINCE MONDAY DTR REPORTS. DTR STATES THAT PT (HER MOTHER) DOES NOT ALWAYS OFFER THE FULL STORY. TODAY PT IS C/O FEELING DIZZY. HAS ALSO BEEN HAVING HEADACHES. HAS NOT YET URINATED TODAY BUT STATES DID SO LAST EVENING. ABLE TO EAT BREAKFAST AND REPORTED NO NAUSEA THIS MORNING. DRANK DIET SODA AND 3 CUPS OF ICE WATER WHILE HERE TODAY. BP QUITE LOW UPON ARRIVAL, 78/43 AND AFTER BEING HERE FOR 40 MINUTES, 78/40. STATES, IN GENERAL, FEELS MUCH WORSE THAN A WEEK AGO. WONDERS IF ALL OF THIS COULD BE RELATED TO THE NEW DIABETIC INJECTION SHE TOOK ON MONDAY, OZEMPIC. DR. BENITO HERE TO EVALUATE. CHOICES GIVEN TO PT FOR ADMISSION, STAY OUTPT AND RECEIVE FLUIDS OR DISMISS TO HOME TO PUSH ORAL FLUIDS. PT AND DTR CHOSE GOING HOME. INSTRUCTIONS GIVEN TO PT TO HOLD ALL MEDS CAUSING DECREASE IN HER BP UNTIL SHE HAS RECEIVED FURTHER INSTRUCTION FROM DR. BARNETT AND TO HOLD THE OZEMPIC UNTIL RE-EVALUATED BY HIM. ALL OF THESE MEDS CIRCLED ON THE DISCHARGE PAPERWORK PT HAD WITH HER: AMLODIPINE, LOSARTAN, METOPROLOL, TORSEMIDE AND THE NEW OZEMPIC. INSTRUCTED PT TO TAKE HER BP EACH DAY PRIOR TO TAKING HER BP MEDS AND TO KEEP A LOG OF THESE. INSTRUCTED TO PUSH FLUIDS TODAY AND RETURN AGAIN MON/MON/MON FOR HER INFUSIONS. DR. BENITO TO SEE HERE AGAIN ON MONDAY. PT AND DTR INSTRUCTED TO CALL DR. BARNETT'S OFFICE FOR THESE INSTRUCTIONS WELL TO MAKE AN APPT TO SEE HIM AGAIN NEXT WEEK. THIS NURSE THEN FAXED A REPORT OF PT'S VITAL SIGNS, YESERDAY'S LABS, CURRENT MED LIST AND CONCERNS TO DR. BARNETT'S OFFICE AND FOLLOWED THIS WITH A PHONE CALL TO HIM TO REVIEW ALL CONCERNS. LET DR. BARNETT KNOW THAT DR. BENITO ADVISED PT TO HOLD ALL THE ABOVE LISTED MEDS WITH DR. BARNETT UNTIL HEARING FROM HIM. THIS NURSE ALSO FAXED A REQUEST TO MEDICAL RECORDS HERE AT [facility] REQUESTING RECORDS TO BE FAXED TO DR. BARNETT'S OFFICE. THEY STATED THIS COULD BE DONE TODAY. ALSO NOTIFIED DR. BARNETT THAT AN ECHOCARDIOGRAM HAS BEEN SET UP FOR PT FOR MONDAY MORNING. PT DID TOLERATE INFUSION TODAY WITHOUT INCIDENT. MIDLINE WORKING WELL BUT NO BLOOD RETURN. PHONED STARR AVERY [facility] PT'S CHOICE OF PHARMACY FOR TODAY SHE IS STAYING AT HER DAUGHTER'S HOUSE THIS WEEKEND TO BE CLOSER TO THE HOSPITAL. INFORMED PT ABOUT NEED TO COME EARLIER MONDAY FOR THE ECHOCARDIOGRAM WHICH IS SET UP FOR 1100. PT VERBALIZED UNDERSTANDING OF ALL OF THIS. MUCH OF THIS WAS SET UP POST PT'S DISMISSAL, LEFT MESSAGE ON ROMAINE, ELIZABETH'S PHONE, AND WITH THE PT TO CALL TODAY TO REVIEW ALL THE EVENTS OF THE DAY POST PT'S DISMISSAL. BP PRIOR TO DISMISSAL WAS 99/53. PT ABLE TO WALK OUT WITHOUT DIFFICULTY AND DENIED DIZZINESS AT THE TIME.
== END ==
LOC: OPONC 02:47
DX: R78.81 Bacteremia (principal); B95.5 Unspecified streptococcus as the cause of diseases classified elsewhere; N18.9 Chronic kidney disease, unspecified; D64.9 Anemia, unspecified; Z95.0 Presence of cardiac pacemaker
CPT/HCPCS: 95000

== ENCOUNTER → 2018-06-09 | Outpatient (CLI) | payer OTHER | LOC: OPONC 07:15 | DX: R78.81 Bacteremia (principal); B95.5 Unspecified streptococcus as the cause of diseases classified elsewhere | CPT/HCPCS: 95000 ==

== ENCOUNTER → 2018-06-10 | Outpatient (CLI) | payer OTHER | LOC: OPONC 07:40 | DX: R78.81 Bacteremia (principal); B95.5 Unspecified streptococcus as the cause of diseases classified elsewhere | CPT/HCPCS: 95000 ==

== ENCOUNTER → 2018-06-11 | Outpatient (CLI) | payer OTHER ==
--- NOTE | 2018-06-11 11:43 | 2DMMODE ---
[facility] [place] [address] 2 D/M-MODE ECHOCARDIOGRAM Name: GEORGI KAUFMAN Room #: REG [facility]#: [id number] Admission: 06/11/18 Attend Phys: Cyrus Menendez MD Discharge: Date of : 46 Date of Service: 06/11/18 1143 Report #: [id number] THIS REPORT FOR: //name// APPROVED REPORT Study performed: 06/11/2018 10:52:39 EXAM: Comprehensive 2D, Doppler, and color-flow Echocardiogram Patient Location: Out-Patient Status: routine BSA: 1.96 HR: 69 bpm BP: 123/76 mmHg Rhythm: Pacemaker Other Information Study Quality: Adequate Indications Bacteremia, endocarditis. Hx: Pacemaker, HTN, DM. 2D Dimensions RVDd: 36.29 mm IVSd: 11.29 (7-11mm) LVOT Diam: 20.11 (18-24mm) LVDd: 48.56 mm PWd: 10.73 (7-11mm) Ascending Ao: 36.25 (22-36mm) LVDs: 31.83 (25-40mm) Aortic Root: 31.53 mm Volumes Left Atrial Volume (Systole) Single Plane 4CH: 49.76 mL Single Plane 2CH: 55.46 mL LA ESV Index: 29.00 mL/m2 Aortic Valve AoV Peak Jeremiah.: 1.35 m/s AO Peak Gr.: 7.25 mmHg LVOT Max P.92 mmHg LVOT Max V: 1.11 m/s ANALILIA Vmax: 2.61 cm2 Mitral Valve MV Decel. Time: 336.38 ms MV E Max Jeremiah.: 1.25 m/s IVRT: 83.04 ms [facility] [address] [address] 2 D/M-MODE ECHOCARDIOGRAM Name: GEORGI KAUFMAN Room #: REG [facility]#: [id number] Admission: 06/11/18 Attend Phys: Cyrus Menendez MD Discharge: Date of : 46 Date of Service: 06/11/18 1143 Report #: [id number] Pulmonary Valve PV Peak Jeremiah.: 0.93 m/s PV Peak Gr.: 3.46 mmHg Tricuspid Valve TR Peak Jeremiah.: 2.44 m/s RAP Estimate: 5.00 mmHg TR Peak Gr.: 23.72 mmHg PA Pressure: 29.00 mmHg Left Ventricle The left ventricle is normal size. There is normal left ventricular wall thickness. Left ventricular systolic function is normal. LVEF is 55-60%. This study is not technically sufficient to allow evaluation of the LV diastolic function. Right Ventricle The right ventricle is normal size. The right ventricular systolic function is normal. Pacemaker lead is present in the right ventricle. Atria Left atrium is mildly dilated. PFO is noted with color doppler. The right atrium size is normal. Mobile density noted in right atrium. 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 Aortic Valve Aortic valve is trileaflet and mildly sclerotic. JL done 05/21/2018 showed tiny mobile density on the aortic valve which may represent vegetation vs degenerative changes. Not able to be seen on transthoracic echo. Trace aortic regurgitation. There is no aortic valvular stenosis. Mitral Valve Mitral valve leaflets are mildly thickened. Mild mitral annular calcification. Mild to moderate mitral regurgitation. No evidence of mitral valve stenosis. Tricuspid Valve The tricuspid valve is normal in structure. Mild to moderate tricuspid regurgitation. Estimated PAP is 30mmHg. Pulmonic Valve The pulmonary valve is normal in structure. Mild pulmonic regurgitation. Great Vessels The aortic root is normal in size. The ascending aorta is normal in [address] [address] 2 D/M-MODE ECHOCARDIOGRAM Name: GEORGI KAUFMAN CORNELIA Room #: REG CL Rich#: [id number] Admission: 06/11/18 Attend Phys: Cyrus Menendez MD Discharge: Date of : 46 Date of Service: 06/11/18 1143 Report #: [id number] size. IVC is normal in size and collapses >50% with inspiration. Pericardium There is no pericardial effusion. <Conclusion> The left ventricle is normal size. LVEF is 55-60%. Left atrium is mildly dilated. The right atrium size is normal. Mobile density noted in right atrium. 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 PFO is noted with color doppler. Aortic valve is trileaflet and mildly sclerotic. JL done 05/21/2018 showed tiny mobile density on the aortic valve which may represent vegetation vs degenerative changes. Not able to be seen on transthoracic echo. Trace aortic regurgitation. Mitral valve leaflets are mildly thickened. Mild mitral annular calcification. Mild to moderate mitral regurgitation. The tricuspid valve is normal in structure. Mild to moderate tricuspid regurgitation. Estimated PAP is 30mmHg. The pulmonary valve is normal in structure. Mild pulmonic regurgitation. There is no pericardial effusion. <ELECTRONICALLY SIGNED> By: Isca Rodrigues MD 06/11/18 1143 1143 1143 Isac Rodrigues MD /INF
[2018-06-11 12:04] LABS: HEMATOCRIT 35.5 % (37.0-47.0); HEMOGLOBIN 12.3 gm/dL (12.0-15.0); MCH 29.4 pg (26.0-34.0); MCHC 34.6 g/dL (28.0-37.0); MCV 84.9 fL (80.0-100.0); RBC 4.18 mil/uL (4.20-5.00); RDW 15.1 % (10.5-14.5); WBC 5.7 thou/uL (4.0-11.0)
[2018-06-11 12:18] LABS: ALBUMIN 3.4 g/dL (3.4-5.0); CALCIUM 9.6 mg/dL (8.5-10.1); CREATININE 1.4 mg/dL (0.6-1.0); TOTAL BILIRUBIN 0.5 mg/dL (<0.1-1.0); TOTAL PROTEIN 6.4 g/dL (6.4-8.2)
[2018-06-11 14:34] VITALS: BP 134/75
--- NOTE | 2018-06-11 14:45 | NUR ---
IN FOR LAST DAY OF CEFTRIAXONE. STATED FEELING MUCH BETTER WITH NO NAUSEA OR VOMITING THE LAST 2-3 DAYS. BP WNL TODAY. MAIN COMPLAINT IS RIGHT SHOULDER PAIN AND EDEMA. TOLERATED INFUSION WELL. DR. BENITO VISITED. RECEIVED NEW ORDERS TO DC IV ANTIBIOTIC AND MIDLINE. REMOVED MIDLINE WITHOUT DIFFICULTY AND APPLIED GAUZE AND COBAN. INSTRUCTIONS GIVEN TO PATIENT REGARDING FOLLOWING UP WITH DR. BARNETT AND MERLY NEXT WEEK. CALLED AND SCHEDULED APPT FOR THIS MONDAY TO SEE DR. BARNETT PATIENT CANNOT GO NEXT WEEK DUE TO HER COLON PREP. PATIENT WENT STRAIGHT TO DR. MORELAND'S OFFICE FOR A VISIT TODAY. ECHOCARDIOGRAM COMPLETED. WILL RETURN HERE NEXT MONDAY FOR BLOOD CULTURES. DISMISSED IN STABLE CONDITION. SPOUSE WITH PATIENT TODAY.
== END ==
LOC: OPONC 07:53
PROVIDERS: Specialist
DX: R78.81 Bacteremia (principal); B95.5 Unspecified streptococcus as the cause of diseases classified elsewhere; N18.9 Chronic kidney disease, unspecified; D64.9 Anemia, unspecified; I35.8 Other nonrheumatic aortic valve disorders; I34.8 Other nonrheumatic mitral valve disorders; I34.0 Nonrheumatic mitral (valve) insufficiency; I07.1 Rheumatic tricuspid insufficiency; I37.1 Nonrheumatic pulmonary valve insufficiency; Z95.0 Presence of cardiac pacemaker
CPT/HCPCS: 95000

== ENCOUNTER → 2018-06-18 | Outpatient (CLI) | payer OTHER ==
[~2018-06-18] MED LIST changes: +COZAAR 25 MG TA25 M1 PO; +MULTIVITAMINS1 EAC7 PO
--- NOTE | 2018-06-18 11:53 | NUR ---
PATIENT HERE FOR FOLLOWUP BLOOD CULTURES. BLOOD CULTURES DRAWN 60 MIN. APART PER MANAGER HAIR. PATIENT STATED DOING WELL. HER RIGHT SHOULDER PAIN HAS ALMOST RESOLVED. PATIENT SAW DR. BARNETT LAST MONDAY AND STATED IS STAYING ON THE OZEMPIC PLUS A SLIDING SCALE INSULIN TO BETTER CONTROL BLOOD SUGARS. SPLINT ON LEFT HAND INTACT. GOOD CAPILLARY REFILL. NO PAIN. WILL FAX CULTURE RESULTS TO DR. BENITO WHEN FINAL. DISMISSED IN STABLE CONDITION.
== END ==
LOC: OPONC 10:12
DX: R73.9 Hyperglycemia, unspecified (principal)

== ENCOUNTER → 2018-06-22 | Outpatient (CLI) | payer OTHER ==
[~2018-06-22] VITALS: Ht 167.6 cm; Wt 85.7 kg
[~2018-06-22] MED LIST changes: +LOSARTAN POTASS50 MG PO; +PEPCID40 MG PO
== END | disposition home or self-care (01) ==
LOC: GI 06:42
DX: D64.9 Anemia, unspecified (principal); Z53.9 Procedure and treatment not carried out, unspecified reason

== ENCOUNTER → 2018-07-05 | Outpatient (CLI) | payer OTHER ==
[~2018-07-05] VITALS: Ht 167.6 cm; Wt 85.7 kg
--- NOTE | ~2018-07-05 | P ---
[facility] [place] [address] PROCEDURE REPORT Name: GEORGI KAUFMAN [id number] Admission: 07/05/18 ������������������ Attend Phys: Luis Fernando Poe MD Discharge: ������������������ Date of : 46 Report #: [id number] THIS REPORT FOR: //name// CC: REI Ayala BRIEF HISTORY: The patient is a 68-year-old woman who recently had Streptococcus bovis bacteremia. She does have history of a rectal ulcer in the past. She has also had worsening constipation. She presents for colonoscopy for further evaluation of her Strep bovis bacteremia. PREOPERATIVE DIAGNOSIS: Change in bowel habits since Streptococcus bovis bacteremia. POSTOPERATIVE DIAGNOSIS: Normal colonoscopy to cecum. MEDICATIONS: Deep sedation with propofol per anesthesia. SPECIMEN: None. ESTIMATED BLOOD LOSS: None. PROCEDURE: Colonoscopy to cecum. FINDINGS: Prior to propofol sedation, procedure of colonoscopy discussed with the patient as well as potential risks and its complications. She indicates she understands and desires to proceed. DESCRIPTION OF PROCEDURE: With the patient in left lateral decubitus position, digital examination was completed, which revealed no abnormalities. Subsequently, the Olympus video colonoscope was introduced in the rectum, advanced under direct vision to the cecum. She has a very tortuous redundant colon. Colon was dilated consistent with her history of chronic constipation. With significant difficulty, we were able to reach the cecum. However, there were limitations of the prep in the proximal colon. We cleaned up as well as possible, could not remove all the debris. We did enter the cecum, but I am not sure that all areas were well visualized between the prep and the difficulty with looping of the scope. I could see the ileocecal valve tangentially, but could not cross the ileocecal valve. No obvious abnormalities were seen in the cecum. In particular, no neoplastic or inflammatory lesions were seen. However, the limitations of the prep, a small polyp could have been overlooked. At that point, the scope was slowly withdrawn and careful circumferential views were obtained. Upon slow withdrawal of the scope, there were limitations of prep, but much of the colon, in particular distal colon, a good prep was obtained with irrigation and suctioning as well. Again, there were limitations [facility] [address] [place] [address] PROCEDURE REPORT Name: GEORGI KAUFMAN [place] Room #: REG [facility].#: [id number] Admission: 07/05/18 ������������������ Attend Phys: Luis Fernando Poe MD Discharge: ������������������ Date of : 46 Report #: [id number] in the proximal colon, but no obvious lesions were seen. A small lesion could have been overlooked. As we withdrew the scope, no abnormalities were seen. Scope was withdrawn in the rectum. Upon retroflexion, no abnormalities were seen. Scope was withdrawn. The patient tolerated the procedure well. CONDITION OF THE PATIENT UPON DISCHARGE: Following procedure, the patient drowsy, aroused, conversant and will be discharged home when fully ambulatory. INSTRUCTIONS TO THE PATIENT AND FAMILY AT THE TIME OF DISCHARGE: The patient had Streptococcus bovis bacteremia. This raises the concern of a neoplasm of the colon. None was found today. Also, she has had a rectal ulcer in the past and none was seen today. No inflammatory changes were seen. A port of entry for Strep bovis was not identified on this exam. Since there were some limitations of the prep and the cecum was not visualized as well as we would like, it was suggested she return in 2 years for followup colonoscopy. As far as her change in bowel habits, she should continue Linzess. I would suggest at times when Linzess is not effective she could also add MiraLax. When she returns in 2 years, I would suggest a 2-day prep. Last colonoscopy was in 07/2015. Withdrawal time from the cecum was 12 minutes and 20 seconds. ��������������������������������������������� ���������������������������������������� By: ��������������������������������������������� [id number] Luis Fernando Poe MD /nt
== END | disposition home or self-care (01) ==
LOC: GI 06:52
DX: R19.4 Change in bowel habit (principal); D64.9 Anemia, unspecified; E11.65 Type 2 diabetes mellitus with hyperglycemia; I48.91 Unspecified atrial fibrillation; I13.0 Hypertensive heart and chronic kidney disease with heart failure and stage 1 through stage 4 chronic kidney disease, or unspecified chronic kidney disease; E11.22 Type 2 diabetes mellitus with diabetic chronic kidney disease; N18.3 Chronic kidney disease, stage 3 (moderate); I50.9 Heart failure, unspecified; Z88.8 Allergy status to other drugs, medicaments and biological substances; Z79.4 Long term (current) use of insulin; Z79.01 Long term (current) use of anticoagulants; Z79.899 Other long term (current) drug therapy; Z95.0 Presence of cardiac pacemaker; Z98.890 Other specified postprocedural states; K21.9 Gastro-esophageal reflux disease without esophagitis; Z90.710 Acquired absence of both cervix and uterus
CPT/HCPCS: 62110; 62900

== ENCOUNTER → 2019-05-08 | Outpatient (CLI) | payer OTHER | END | disposition home or self-care (01) | LOC: SJCVCIMAG 08:27 | DX: I08.3 Combined rheumatic disorders of mitral, aortic and tricuspid valves (principal); I11.9 Hypertensive heart disease without heart failure; J43.9 Emphysema, unspecified; Z95.0 Presence of cardiac pacemaker ==

== ENCOUNTER → 2019-07-18 | Outpatient (CLI) | payer OTHER | LOC: SJCVC 13:26 | DX: I44.2 Atrioventricular block, complete (principal); I48.21 Permanent atrial fibrillation; I11.0 Hypertensive heart disease with heart failure; I50.32 Chronic diastolic (congestive) heart failure; E11.9 Type 2 diabetes mellitus without complications; E66.9 Obesity, unspecified; Z95.0 Presence of cardiac pacemaker; Z79.899 Other long term (current) drug therapy ==

== ENCOUNTER → 2020-01-15 | Outpatient (CLI) | payer OTHER | LOC: SJCVC 13:12 | PROVIDERS: ATTEND Internal Medicine Cardiovascular Disease | DX: R94.31 Abnormal electrocardiogram [ECG] [EKG] (principal); I48.21 Permanent atrial fibrillation; I50.32 Chronic diastolic (congestive) heart failure; Z98.890 Other specified postprocedural states; Z95.0 Presence of cardiac pacemaker ==

== ENCOUNTER 2020-07-05 13:28 | Inpatient (IN) | payer OTHER ==
[~2020-07-05] VITALS: Ht 162.6 cm; Wt 109.8 kg
--- NOTE | ~2020-07-05 | HC ---
[facility] [place] [address] CONSULTATION Name: GEORGI KAUFMAN V Room #: 212-P [facility] IN M.R.#: [id number] Admission: 07/05/20 Attend Phys: Pk Pascual Discharge: Date of : 46 Report #: [id number] THIS REPORT FOR: cc: Silvio Macias Theodore M. DO McElhinney, Christian C. MD ~ DATE OF SERVICE: 07/12/2020 HISTORY OF PRESENT ILLNESS: The patient is a 70-year-old female with multiple medical problems including congestive heart failure, insulin-dependent diabetes, hypertension, hyperlipidemia, chronic renal insufficiency. Reason for GI consultation is for intermittent bright red blood per rectum. The patient is known to me, who underwent a colonoscopy in 07/2015. She has a long history of chronic constipation and has been on multiple different medications in the past. At that time, it took 3 days of prepping in order to clean, to prepare her for her colonoscopy for an adequate exam. At that time, she was noted to have internal and external hemorrhoids, but also a distal rectal ulcer, likely thought to be secondary to chronic constipation. She then underwent another colonoscopy by my partner, Dr. Poe in 06/2018, also difficult and that the prep was not adequate in some areas. He was only able to reach the ileocecal valve, which was the same as myself years prior, not able to visualize the cecum well due to significant looping from her chronic constipation. On that colonoscopy, she also had Streptococcus bovis that was growing out sepsis. She did have hemorrhoids, but no evidence of ulcerations or colitis. No masses or polyps were noted at that time. He did recommend possibly repeating colonoscopy in 2 years due to the prep being fair in areas. She was admitted for abnormal labs on 07/05/2020. She was complaining of a dry cough at that time as well as dyspnea on exertion, weight gain of approximately 15 pounds over the last month, increasing lower extremity edema over the last few months. Cardiology is following. The patient is on Xarelto for history of AFib. This has now been held. She is on diuretics as well as multiple other medications. The patient's states she has been taking Linzess at home and actually has worked quite well for her chronic constipation. Denies any recent history of significant straining or issues with constipation; however, here in the hospital, she feels like her hemorrhoids have been aggravated while having the bowel movement. She did notice some small amount of bright red blood per rectum recently, which was the reason for GI consultation. Rectal suppositories of hydrocortisone were started today. She denies any anorectal pain. She denies any abdominal pain. No nausea or vomiting. No heartburn symptoms. No chest pain or shortness of breath at rest. PAST MEDICAL HISTORY: Congestive heart failure, insulin-dependent diabetes, hypertension. She has had a pacemaker placed. She has a history of gastroesophageal reflux disease; history of AFib; previous hysterectomy; chronic constipation, on Linzess; colonoscopies as described above; chronic renal [address] [address] CONSULTATION Name: GEORGI KAUFMAN V Room #: 212-P ADM IN M.R.#: [id number] Admission: 07/05/20 Attend Phys: Pk Pascual Discharge: Date of : 46 Report #: [id number] insufficiency. ALLERGIES: ASPIRIN. REVIEW OF SYSTEMS: As per HPI. CURRENT MEDICATIONS: MiraLax once a day, hydrocortisone suppositories started today, glipizide, tramadol, Humalog, Xarelto has been held, potassium chloride, torsemide, metoprolol, Cardizem, atorvastatin, pregabalin, Lantus, Humalog, Ambien, nitro p.r.n., Tylenol p.r.n. FAMILY HISTORY: Negative for colon cancer. SOCIAL HISTORY: She denies any tobacco or alcohol use at this time. PHYSICAL EXAMINATION: VITAL SIGNS: Temperature is 36.5, pulse 69, blood pressure 130/89, respiratory rate is 16. GENERAL: She is tired, but alert and oriented x 3, in no acute distress. HEENT: Sclerae nonicteric. Oropharynx clear. NECK: Supple, without lymphadenopathy. CARDIOVASCULAR: Regular rate. CHEST: With decreased breath sounds at bases bilaterally. ABDOMEN: Obese, soft, nontender, nondistended, normoactive bowel sounds. EXTREMITIES: Trace edema of the lower extremities bilaterally. LABORATORY DATA: WBC is 6.9, hemoglobin 14.3, platelet count is 220. Sodium 137, potassium 4.9, chloride 103, bicarbonate 27, BUN 46, creatinine 2.3, glucose 148, calcium 8.6, magnesium 2.1, total bilirubin 0.9, AST 23, ALT is 22, alkaline phosphatase 153. Troponin on admission was less than 0.06. BNP on the was 1747. Total protein 5.6, albumin 2.8. COVID was negative on the . Chest x-ray on the , no acute cardiopulmonary processes noted. ASSESSMENT AND PLAN: Bright red blood per rectum, suspect this is from hemorrhoids, although the patient did have a previous history of rectal ulcer in 2016 likely due to chronic constipation. She has a continued constipation; however, has been on Linzess and this has been working quite well at home. She has undergone 2 colonoscopies, last one being in 2019. With all her other medical problems at this time, I would not proceed with repeat colonoscopy at this time. Agree with hydrocortisone suppositories and observing. Initially, her hemoglobin is stable. We will continue to follow, would restart Linzess at home. In the meantime, she is on MiraLax on a daily basis. [facility] [address] [place] [address] CONSULTATION Name: GEORGI KAUFMAN V Room #: 212-P [facility] IN .R.#: [id number] Admission: 07/05/20 Attend Phys: Pk Pascual Discharge: Date of : 46 Report #: [id number] Thank you for allowing me to participate in her care. By: [id number] [id number] Herbie Clifford MD /nt
[2020-07-05 13:35] VITALS: BP 167/90
[2020-07-05 14:15] LABS: ABSOLUTE NEUTROPHILS 4.1 thou/uL (1.4-8.2); BASOPHILS 1.2 % (0.0-2.0); EOSINOPHILS 3.4 % (0.0-3.0); HEMATOCRIT 43.3 % (37.0-47.0); HEMOGLOBIN 14.2 gm/dL (12.0-15.0); LYMPHOCYTES 12.1 % (24.0-44.0); MCH 28.2 pg (26.0-34.0); MCHC 32.7 g/dL (28.0-37.0); MCV 86.3 fL (80.0-100.0); MONOCYTES 14.6 % (1.0-8.0); PLATELET COUNT 187 thou/uL (150-400); POLYS 68.7 % (36.0-66.0); RBC 5.02 mil/uL (4.20-5.00); RDW 15.8 % (10.5-14.5); WBC 5.9 thou/uL (4.0-11.0)
[2020-07-05 14:25] LABS: CALCIUM 8.6 mg/dL (8.5-10.1); CREATININE 1.6 mg/dL (0.6-1.0); POTASSIUM 3.8 mmol/L (3.5-5.1)
[2020-07-05 14:31] LABS: DIRECT BILIRUBIN 0.5 mg/dL (<0.1-0.2); TOTAL BILIRUBIN 1.1 mg/dL (0.2-1.0); TOTAL PROTEIN 5.7 g/dL (6.4-8.2)
[2020-07-05 15:28] VITALS: BP 178/97
--- NOTE | 2020-07-05 16:16 | NUR ---
ATTEMPTED TO CALL REPORT FOR ROOM 212, WAS NOTIFIED BY [place] (UNIT SEC) THAT RN TAKING MY PATIENT IS CURRENTLY CHANGING A COLOSTOMY BAG. REQUESTED CHARGE EDMUND, WAS PLACED ON HOLD WHILE CHARGE NURSE COMES TO PHONE.
[2020-07-05 16:27] VITALS: BP 178/102
[2020-07-05 16:45] VITALS: BP 191/114
--- NOTE | 2020-07-05 17:41 | NUR ---
TO UNIT FROM E.D. BY WC, ACCOMPANIED BY . ORIENTED TO UNIT, FALL PRECAUTIONS.
[2020-07-05 18:54] VITALS: BP 154/79
[2020-07-05 23:44] VITALS: BP 180/84
[2020-07-06 04:13] VITALS: BP 151/88
[2020-07-06 04:18] LABS: ALBUMIN 2.6 g/dL (3.4-5.0); ANION GAP 9 mmol/L (7-16); BUN 25 mg/dL (7-18); CALCIUM 8.3 mg/dL (8.5-10.1); CHLORIDE 106 mmol/L (98-107); CO2 26 mmol/L (21-32); CREATININE 1.6 mg/dL (0.6-1.0); GLUCOSE 151 mg/dL (74-106); PHOSPHORUS 3.4 mg/dL (2.5-4.9); POTASSIUM 3.5 mmol/L (3.5-5.1); SODIUM 141 mmol/L (136-145); TROPONIN-I <0.06 ng/mL (<0.06)
[2020-07-06 05:44] VITALS: BP 170/99
--- NOTE | 2020-07-06 07:20 | EKG ---
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1950 Requested By: Pk Pascual Order Number: [id number] MD: Veto Ng Measurements Intervals [place] Rate: 70 P: 0 SD: 76 QRS: 244 QRSD: 136 T: 73 QT: 466 QTc: 503 Interpretive Statements Sinus rhythm Short SD interval Nonspecific IVCD with LAD Anterolateral infarct, age indeterminate Compared to ECG 06/07/2018 17:10:08 Short SD interval now present Intraventricular conduction delay now present Myocardial infarct finding now present Ventricular-paced complex(es) or rhythm no longer present Atrial-sensed ventricular-paced complex(es) or rhythm no longer present Electronically Signed On 07-06-2020 7:20:07 CDT by Veto Ng [email or web address] <ELECTRONICALLY SIGNED> By: Veto Ng MD, FACC 07/06/20 0720 1345 1345 Veto Ng MD, FAC /EPI
--- NOTE | 2020-07-06 07:35 | NUR ---
PATIENT DENIES PAIN AND HAD SLEPT MINIMAL THROUGHOUT NIGHT R/T FREQUENT TRIP TO BATHROOM R/T LASIX. DIFFICULTY SKEEPING WITH NOISE AND LIGHTS, SLEPT BETTER WITH DOOR CLOSED.
[2020-07-06 08:30] VITALS: BP 169/88
[2020-07-06 11:45] VITALS: BP 142/90
[2020-07-06 15:10] VITALS: BP 144/84
--- NOTE | 2020-07-06 16:14 | NUR ---
PT RESTING COMFORTABLY WITH AT BEDSIDE. PT NEEDS TO WORK WITH PT/OT FOR POSSIBLE REHAB PLACEMENT. PT AFEBRILE, ADEQUATE UOP, 1 BM, APPROPRIATE APPETITE. PT AND HAVE BEEN UPDATED AND EDUCATED ON PT CONDITION AND POC. PT SLOWLY PROGRESSING TOWARDS POC.
--- NOTE | 2020-07-06 16:22 | NUR ---
Patient admits from PCP office for abnormal labs. PCP Dr Macias. Patient resides in independent home with spouse who is at bedside. All needs on one level in home with 3 steps to enter with railing. Patient uses a cane but has a walker if needed. Patient independent with adls at home. Patient anticipated discharge tomorrow with no needs from casemgt.
[2020-07-06 19:50] VITALS: BP 161/92
[2020-07-07 05:00] VITALS: BP 129/78
[2020-07-07 07:25] VITALS: BP 123/69
--- NOTE | 2020-07-07 08:02 | NUR ---
[facility] 1900. PT/VITALS STABLE. DENIES ANY PAIN. MODERATE TOLERANCE TO ACTIVITY. ASSESSMENT CHARTED. PROGRESSING MODERATELY TO POC. PLAN IS TO CONTINUE DIURESING PT. WILL CONTINUE TO MONITOR AND FOLLOW WITH POC
[2020-07-07 09:55] LABS: CALCIUM 8.6 mg/dL (8.5-10.1); CREATININE 1.7 mg/dL (0.6-1.0); POTASSIUM 3.4 mmol/L (3.5-5.1)
--- NOTE | 2020-07-07 09:58 | 2DMMODE ---
[facility] [address] [place] [address] 2 D/M-MODE ECHOCARDIOGRAM Name: MANDEEPGEORGI Sundar Room #: 212-P ADM IN M.R.#: [id number] Admission: 07/05/20 Attend Phys: Pk Pascual Discharge: Date of : 46 Report #: [id number] THIS REPORT FOR: cc: Silvio Macias Theodore M. DO Lammoglia, Francisco J. MD ~ APPROVED REPORT Study performed: 07/07/2020 08:31:51 EXAM: Comprehensive 2D, Doppler, and color-flow Echocardiogram Patient Location: Bedside Room #: 212 Status: routine BSA: 2.08 HR: 69 bpm BP: 129/78 mmHg Rhythm: Pacemaker Other Information Study Quality: Adequate Indications Diastolic heart failure. Hx: Afib/ablation, pacemaker, DM, HTN. 2D Dimensions RVDd: 40.53 mm IVSd: 11.00 (7-11mm) LVOT Diam: 20.00 (18-24mm) LVDd: 44.00 mm PWd: 11.00 (7-11mm) Ascending Ao: 33.05 (22-36mm) LVDs: 32.53 (25-40mm) Aortic Root: 32.08 mm Volumes Left Atrial Volume (Systole) Single Plane 4CH: 60.83 mL Single Plane 2CH: 86.63 mL LA ESV Index: 38.00 mL/m2 Aortic Valve AoV Peak Jeremiah.: 1.16 m/s AO Peak Gr.: 5.42 mmHg LVOT Max P.59 mmHg LVOT Max V: 0.80 m/s ANALILIA Vmax: 2.12 cm2 [facility] [address] [place] [address] 2 D/M-MODE ECHOCARDIOGRAM Name: GEORGI KAUFMAN Sundar Room #: 212-P [facility] IN [facility]#: [id number] Admission: 07/05/20 Attend Phys: Pk Webb Discharge: Date of : 46 Report #: [id number] Mitral Valve MV Decel. Time: 245.53 ms MV E Max Jeremiah.: 1.31 m/s Pulmonary Valve PV Peak Jeremiah.: 0.55 m/s PV Peak Gr.: 1.23 mmHg Tricuspid Valve TR Peak Jeremiah.: 3.06 m/s RAP Estimate: 15.00 mmHg TR Peak Gr.: 37.41 mmHg PA Pressure: 52.00 mmHg Left Ventricle The left ventricle is normal size. Paradoxical septal motion consistent with paced rhythm. There is normal left ventricular wall thickness. Left ventricular systolic function is low normal. LVEF is 50%. This study is not technically sufficient to allow evaluation of the LV diastolic function. Right Ventricle Right ventricle is mildly dilated. The right ventricular systolic function is normal. Pacemaker lead is present in the right ventricle. Atria Mild biatrial enlargement. Aortic Valve The aortic valve is normal in structure; mildly sclerotic. Trace aortic regurgitation. There is no aortic valvular stenosis. Mitral Valve The mitral valve is normal in structure. Mild mitral annular calcification. Mild to moderate mitral regurgitation. Tricuspid Valve The tricuspid valve is normal in structure. Moderate to severe tricuspid regurgitation. Estimated PAP is 50mmHg. Pulmonic Valve The pulmonary valve is normal in structure. Mild pulmonic regurgitation. Great Vessels The aortic root is normal in size. The ascending aorta is normal in size. IVC is dilated and collapses <50% with [facility] [address] [place] [address] 2 D/M-MODE ECHOCARDIOGRAM Name: GEORGI KAUFMAN V Room #: 212-P [facility] IN M.R.#: [id number] Admission: 07/05/20 Attend Phys: Pk Webb Discharge: Date of : 46 Report #: [id number] inspiration. Pericardium There is no pericardial effusion. <Conclusion> The left ventricle is normal size. Left ventricular systolic function is low normal. Paradoxical septal motion consistent with paced rhythm. LVEF is 50%. Right ventricle is mildly dilated. The right ventricular systolic function is normal. Pacemaker lead is present in the right ventricle. Mild biatrial enlargement. The aortic valve is normal in structure; mildly sclerotic. Trace aortic regurgitation. The mitral valve is normal in structure. Mild mitral annular calcification. Mild to moderate mitral regurgitation. The tricuspid valve is normal in structure. Moderate to severe tricuspid regurgitation. Estimated PAP is 50mmHg. The pulmonary valve is normal in structure. Mild pulmonic regurgitation. There is no pericardial effusion. <ELECTRONICALLY SIGNED> By: Isac Rodrigues MD 07/07/20957 7 7 Isac Rodrigues MD /INF
[2020-07-07 12:00] VITALS: BP 132/78
[2020-07-07 15:20] VITALS: BP 122/77
--- NOTE | 2020-07-07 18:21 | NUR ---
PT IS AXOX4, PLEASANT. PT DENIES PAIN, HAS SOME SOA WITH EXERTION. VSS, AFEBRILE, LUNGS CLEAR. DR GARBER CONSULTED. CARDIOLOGY CONSULTED. POC IS TO CONTINUE TO DIURESE PT, STRICT I&Os. PT ON FLUID RESTRICTION 1500ML/HR. PT HAS BILAT LOWER EDEMA; EDUCATED ON DIURESIS. POC IS TO CONTINUE TO MONITOR I&O, HR/BP. LOW FALL PRECAUTIONS IN PLACE. PT IS UP WITH CANE AND USES TOILET OR BEDSIDE COMMODE. NO CONCERNS AT THIS TIME.
[2020-07-07 20:57] VITALS: BP 135/84
[2020-07-08 04:00] VITALS: BP 121/74
--- NOTE | 2020-07-08 05:19 | NUR ---
[facility] 1900. PT/VITALS STABLE. DENIES ANY PAIN. GOOD TOLERANCE TO ACTIVITY. ASSESSMENT AAS CHARTED. APACED/AFLUTTER ON MONITOR. PROGRESSING WELL WITH POC. ADEQUATE REST/NO DISTRESS NOTED. PLAN IS TO CONTINUE TO DIURESE PT. WILL CONTINUE TO MONITOR AND FOLLOW WITH POC
[2020-07-08 06:41] LABS: CALCIUM 8.3 mg/dL (8.5-10.1); POTASSIUM 3.9 mmol/L (3.5-5.1)
[2020-07-08 09:11] VITALS: BP 134/82
[2020-07-08] MEDS ORDERED: CARDIZEM CD240 M1 PO (10:36)
[2020-07-08] MEDS ORDERED: ATORVASTATIN CA10 MG PO (10:36)
[2020-07-08] MEDS ORDERED: TOPROL XL100 MG PO (10:36)
[2020-07-08 12:00] VITALS: BP 129/62
[2020-07-08 15:53] VITALS: BP 134/72
--- NOTE | 2020-07-08 16:50 | NUR ---
PT IS AXOX4, PLEASANT, DENIES PAIN. VSS, AFEBRILE. DR GARBER AND CARDIOLOGY CONSULTED IN THE AM. PT WEIGHED IN AM WITH LOSS OF 0.5LBS. ABDOMEN HAS SOFTEN, BILAT LEGS PITTING EDEMA 3+, LUNGS CLEAR, NO CRACKLES HEARD IN BASES, HEART SOUNDS STILL SOFT/DISTANT. DR RUIZ CONSULTED. POC IS TO CONTINUE TO DIURESE THE PT, SCHEDULED OT LOWER EXTREMITY WRAPS. LOW FALL RISK. PT IS UP AD ROSETTA TO TOILET WITH CANE, OR FURNITURE WALKS. PT ON 1500 ML/HR FLUID RESTRICTIONS. PT AT THE BEDSIDE. POSSIBLE DISCHARGE TOMORROW. NO CONCERNS AT THIS TIME.
[2020-07-08 19:57] VITALS: BP 131/78
[2020-07-09 04:45] VITALS: BP 131/82
[2020-07-09 07:44] VITALS: BP 139/91
[2020-07-09 09:48] LABS: CALCIUM 8.7 mg/dL (8.5-10.1); CREATININE 2.2 mg/dL (0.6-1.0); POTASSIUM 4.7 mmol/L (3.5-5.1)
[2020-07-09 11:20] VITALS: BP 127/70
--- NOTE | 2020-07-09 13:40 | NUR ---
PT IS AXOX4, PLEASANT, FLAT AFFECT. VSS, AFREBRILE. DR GARBER CONSULTED. PT LUNGS CLEAR, WITH NO CRACKLES, BUT PT STILL USING 2LNC. O2 SATS MID 90's%. EXERCISE SPIROMETRY WITH RT; 4LNC WITH ACTIVITY/WALKING. PT/OT CONSULTED. CARDIOLOGY CONSULTED. PT TO HAVE OT LYMPHEDEMA WRAPS. POC IS TO CONTINUE TO MONITOR O2/BP/HR. PT ON STRICT I&Os 1500 ML FLUID RESTRICTION. FALL PRECAUTIONS IN PLACE. PT AT THE BEDSIDE. NO CONCERNS AT THIS TIME.
[2020-07-09 15:27] VITALS: BP 109/75
--- NOTE | 2020-07-09 17:06 | NUR ---
Case discussed with the care team. DC home with outpt OT for lymphodema tx held due to increased o2 needs. Pt roomair sat 86% with activity and needing 2-4 liters to get her above 90%. Will initiate home o2 referral in the am. Pt planning to go to outpt OT at [facility] for lymphodema. She will get referral from her pcp.
[2020-07-09 19:58] VITALS: BP 133/90
[2020-07-10 04:33] VITALS: BP 128/80
[2020-07-10 05:20] LABS: CALCIUM 8.7 mg/dL (8.5-10.1); CREATININE 2.4 mg/dL (0.6-1.0); POTASSIUM 4.5 mmol/L (3.5-5.1)
--- NOTE | 2020-07-10 08:10 | NUR ---
PATIENTS CARES WERE ASSUMED AT SHIFT CHANGE. PATIENT WAS ASSESSED AND MEDS WERE PASSED. PATIENT HAD NO REQUEST THIS SHIFT. PATIENT DID SLEEP THE MAJORITY OF THIS SHIFT. ROUNDS WERE DONE. THE BED IS IN A LOW AND LOCKED POSITION. PATIENT DOES HAVE DISCHARGE ORDERS FOR TODAY
[2020-07-10 09:11] VITALS: BP 117/70
--- NOTE | 2020-07-10 13:41 | NUR ---
PT RESTING IN CHAIR AT THIS TIME, DENIES PAIN OR DISCOMFORT. PT DID WELL AMBULATING TO SHOWER THIS AM AND WAS ABLE TO PROVIDED SELF CARE WITH MOD ASSIST. PT CONT TO REQUIRE 02 AT THIS TIME AND IS AT 1L. CALL LIGHT IN REACH. NO QUESTIONS OR CONCERNS AT THIS TIME.
--- NOTE | 2020-07-10 15:03 | NUR ---
Home oxygen referral initiated with [facility] for possible weekend dc. Facesheet and ex sats faxed. They will need updated exercise ox and script with dx chf faxed to them at [phone] and their oncall liason can be contacted at [phone]. Portable tanks available in the cm office. Pt hoping to wean off o2 as they have a wood burning stove at home and have saftey concerns for home o2. Pt to f/u with [facility]/pcp for outpt lymphodema therapy.
--- NOTE | 2020-07-10 15:54 | NUR ---
[facility] ADVANCED LETTER PRESENTED TO PATIENT.
[2020-07-10 16:00] VITALS: BP 129/88
[2020-07-10 19:10] VITALS: BP 122/80
[2020-07-11] VITALS (8 sets, daily range): BP systolic 113–136; BP diastolic 64–79
[2020-07-11 05:43] LABS: CALCIUM 8.7 mg/dL (8.5-10.1); CREATININE 2.2 mg/dL (0.6-1.0); POTASSIUM 4.4 mmol/L (3.5-5.1)
--- NOTE | 2020-07-11 06:12 | NUR ---
ASSUMED CARE AT CHANGE OF SHIFT; AOX4; SBA WITH CANE TO BSC/TOILET; SR/PACED ON THE MONITOR; HR 70 WITH VERY LITTLE DEVIATION ABOVE OR BELOW THIS RATE; VSS/ASSESSMENTS CHARTED; NO C/O PAIN; SLEPT QUIETLY MOST OF THE NOC; PATIENT ON ROOM AIR WITH 02 SATS 92-95%; NO C/O SOB OR REQUESTS FOR OXYGEN; PLAN IS FOR PATIENT TO D/C TO HOME TODAY WILL CONTINUE TO MONITOR AND FOLLOW POC.
--- NOTE | 2020-07-11 15:16 | NUR ---
SPOKE TO RN AND DR. PASCUAL REGARDING PATIENT POSSIBLY DISCHARGING THIS WEEKEND. PATIENT VOICED CONCERNS ABOUT SAFETY AT HOME AND O2. DR. PASCUAL REQUESTING HOME HEALTH FOR O2 SAFETY EVALUATION AND EDUCATION. REFERRAL FAXED TO [facility]. WILL CONFIRM IF THEY RECEIVED AND SERVICES AVAILABLE IN PATIENT'S DEMOGRAPHIC LOCATION. FAXED 02 SATURATION W/EXERCISE TO [facility]. FORTINO/LALITA WILL FAX SCRIPT ON 07/13/20. RN TO SUPPLY O2 TANK FROM [facility] AFTER SCRIPT WRITTEN AND PATIENT READY FOR DISCHARGE. [facility] P [phone]; FAX [phone] [facility] FAX WEEKEND [phone]; HANY/ARUN [phone]
--- NOTE | 2020-07-11 20:00 | NUR ---
PT CARE ASSUMED AT 0700. ASSESSMENTS CHARTED. MEDICATIONS CHARTED. RFA IV. DR PASCUAL AND SHANON (CM) WORKING TO SUPPLY PT WITH HOME O2 UPON DISCHARGE. PT TOLD TO LIMIT SODAS AT HOME.
--- NOTE | 2020-07-11 20:22 | NUR ---
PT BACK INTO AFIB WITH RATE 140-150'S, VERAPAMIL GIVEN EARLY, BP 104/71 TEMP 100.8, DR NOTIFIED AND AWARE CON'T TO MONITOR, PRN PAIN MED GIVEN FOR BACK PAIN AND TYLENOL FOR FEVER, PT RESTING QUIETLY IN ROOM.
[2020-07-12 03:50] VITALS: BP 132/76
[2020-07-12 07:18] VITALS: BP 146/80
[2020-07-12 08:41] LABS: ABSOLUTE NEUTROPHILS 4.5 thou/uL (1.4-8.2); BASOPHILS 1.2 % (0.0-2.0); EOSINOPHILS 2.7 % (0.0-3.0); HEMATOCRIT 43.4 % (37.0-47.0); HEMOGLOBIN 14.3 gm/dL (12.0-15.0); LYMPHOCYTES 12.1 % (24.0-44.0); MCH 28.3 pg (26.0-34.0); MCHC 32.9 g/dL (28.0-37.0); MONOCYTES 19.7 % (1.0-8.0); PLATELET COUNT 220 thou/uL (150-400); POLYS 64.3 % (36.0-66.0); RBC 5.04 mil/uL (4.20-5.00); RDW 16.3 % (10.5-14.5); WBC 6.9 thou/uL (4.0-11.0)
[2020-07-12 08:51] LABS: ALBUMIN 2.8 g/dL (3.4-5.0); CALCIUM 8.6 mg/dL (8.5-10.1); CREATININE 2.3 mg/dL (0.6-1.0); MAGNESIUM 2.1 mg/dL (1.8-2.4); POTASSIUM 4.9 mmol/L (3.5-5.1); TOTAL BILIRUBIN 0.9 mg/dL (0.2-1.0); TOTAL PROTEIN 5.6 g/dL (6.4-8.2)
[2020-07-12 12:07] VITALS: BP 130/89
[2020-07-12 16:02] VITALS: BP 130/89
--- NOTE | 2020-07-12 18:42 | NUR ---
RECEIVED PT'S CARE AROUND 0745; PT. ON BED; RESTING WITH EYES CLOSED; EQUAL CHEST RISING NOTICED; DURING AM ASSESSMENT AOX4; NO C/O PAIN; AM MEDICATIONS GIVEN; NOTICED BLEEDING ON BED SIDE COMMODE; PT. ST. BEING FROM HEMORROIDS; PHYSICIAN NOTIFIED; ORDERS RECEIVED; EARLY ON THE MORNING PT'S SPOUSE AT THE BED SIDE; IRRITABLE AND UPSET APROACHED TO CARDIOLOGY TREATMENT SPECIALIST WHILE ST. "I DO NOT KNOW WHAT IS GOING ON WITH MY "; ENTREPRENEURSHIP PROGRAM DIRECTOR APPROACHED TO SPOUSE AND INTRODUCED A PT'S NURSE; SUGGESTED TO GO TO PT'S ROOM TO DISCUSS POC AND GIVE ANY UPDATED; WHILE IN THE ROOM PT'S SPOUSE SHOUTING "I DO NOT KNOW WHAT IS GOING ON"; "SOME ONE SAY SOMEONE IS COMMING TO INSPECT MY HOUSE AND (PROFANITY) IS NOT HAPPENING"; EDUCATED ABOUT PT. NOT READY TO BE D/C DUE TO BLOOD NOTICED ON COMMODE; EXPLAINED CONSULT TO GI DUE TO BLEEDING; PT'S SPOUSE SHOUTTING BEING DISRECPECTFUL; ENTREPRENEURSHIP PROGRAM DIRECTOR APPROACHED TO SPOUSE AND REQUESTED TO PLEASE BE RESPETCFUL OR OTHER SECURITY MIGHT BE CALLED; EXPLAINED REASONS TO PT. STAYING TODAY; PT'S ST. "I WOULD NOT ALLOW OXYGEN IN MY HOUSE"; EDUCATED ABOUT PT. NEEDING O2 DURING AMBULATION AND THE IMPORTANCE OF IT; NO ANSWER; PHYSICIAN CALL AND NOTIFIED ABOUT PT'S CONCERNS; DR. PASCUAL AT THE BED SIDE AT LEAST FOR ONE HOUR EXPLAINING AND TALKING WITH PT.; INSULIN NOT COVERED; ASSESSMENT CHARGED; FOLLOWING POC; PASSED ON REPORT;
[2020-07-12 19:58] VITALS: BP 138/87
[2020-07-12 23:59] VITALS: BP 136/88
[2020-07-13 03:06] VITALS: BP 118/68
--- NOTE | 2020-07-13 05:46 | NUR ---
PT TRANSFERRING TO BEDSIDE COMMODE WITH ASSIST X1 AND IS TOLERATING FAIR. DENIES PAIN. HEMORRHOID BLEEDING QUIT PROFUSELY--WILL CONTINUE TO MONITOR. POSSIBLE DISCHARGE HOME 07/13. RESTING COMFORTABLY. NO NEEDS VOICED. CALL LIGHT WITHIN REACH. FREQUENT OBSERVATION.
--- NOTE | 2020-07-13 07:24 | EKG ---
[address] [address] ELECTROCARDIOGRAM REPORT Name: GEORGI KAUFMAN V Room #: 212- ADM IN M.R.#: [id number] Admission: 07/05/20 Attend Phys: Pk Pascual Discharge: Date of : 46 Report #: [id number] [facility] Test Date: 2020-07-12 Test Time: 08:24:03 Pat Name: GEORGI KAUFMAN Department: Room: 212 Gender: F Sample Tester: DANIELLE : 1950 Requested By: Tiny Reina Order Number: [id number] MD: Veto Ng Measurements Intervals [place] Rate: 71 P: 0 RI: 193 QRS: 248 QRSD: 147 T: 83 QT: 472 QTc: 513 Interpretive Statements Ventricular-paced complexes No further rhythm analysis attempted due to paced rhythm Nonspecific IVCD with LAD Anterolateral infarct, age indeterminate Compared to ECG 07/05/2020 13:45:04 Sinus rhythm no longer present Short RI interval no longer present Myocardial infarct finding still present Electronically Signed On 07-13-2020 7:24:21 CDT by Veto Ng [email or web address] <ELECTRONICALLY SIGNED> By: Veto Ng MD, FACC 07/13/20723 3 3 Veto Ng MD, [facility] /EPI
[2020-07-13 08:00] VITALS: BP 128/87
[2020-07-13 09:57] LABS: ALBUMIN 2.9 g/dL (3.4-5.0); CALCIUM 8.8 mg/dL (8.5-10.1); CREATININE 2.3 mg/dL (0.6-1.0); PHOSPHORUS 3.8 mg/dL (2.6-4.7); POTASSIUM 5.2 mmol/L (3.5-5.1)
[2020-07-13 10:02] LABS: ABSOLUTE NEUTROPHILS 4.8 thou/uL (1.4-8.2); BASOPHILS 0.9 % (0.0-2.0); HEMATOCRIT 44.3 % (37.0-47.0); HEMOGLOBIN 14.5 gm/dL (12.0-15.0); LYMPHOCYTES 12.7 % (24.0-44.0); MCH 28.4 pg (26.0-34.0); MCHC 32.8 g/dL (28.0-37.0); MCV 86.6 fL (80.0-100.0); MONOCYTES 18.3 % (1.0-8.0); PLATELET COUNT 229 thou/uL (150-400); POLYS 66.1 % (36.0-66.0); RBC 5.12 mil/uL (4.20-5.00); RDW 16.1 % (10.5-14.5); WBC 7.2 thou/uL (4.0-11.0)
--- NOTE | 2020-07-13 10:59 | NUR ---
PT WAS TO DC OVER THE WEEKEND TO HOME SHE NEEDED HOME O2 WHICH IS ARRANGED WITH [facility] O2 TANK IN [facility] OFFICE SPOKE WITH RN ON UNIT MONDAY AND TOLD HER PT WAS GOOD TO GO HOME WITH O2 AND TO HAVE SUPERVISER GET IT OUT OF MY OFFICE OR SECURITY COULD LET THEM IN AND THAT PT WOULD NOT NEED HH TO EVAL HOME FOR O2 THAT WOULD BE [facility] AND I SPOKE WITH HANY AT [facility] AND HE REASSURED ME THAT THE PERSON THAT WILL SET UP CONCENTRATOR AT HOME WILL G0 OVER EVERYTHING AND MAKE SURE PT IS COMFORTABLE WITH O2 IN HER HOME.
[2020-07-13 11:30] VITALS: BP 144/99
[2020-07-13] MEDS ORDERED: HEMORRHOIDAL HC25 MG RECTAL (12:17)
[2020-07-13 12:23] VITALS: BP 128/87
--- NOTE | 2020-07-13 13:20 | NUR ---
RECEIVED PT'S CARE AROUND 15; PT. ON BED; RESTING; MAKING SOUNDS LIKE C/O PAIN; ASKED IF HAVE PAIN; ST. "NO"; ASKED IF SHE IS OK; ST. "YES"; RAOUL CROWELL DENTAL EQUIPMENT MECHANIC PT. CRYING; GENERATION MECHANIC HELPER ROUNDING ON PT.; PT. CRYING; ASKED REASON FOR CRYING PT. ST. "I AM HUNGRY"; TRAY AT THE BED SIDE; EDUCATED ABOUT CALLING FOR HELP IF NOT ABLE TO REACH FOOD; NO ANSWER; REPOSITIONED ON BED; BED SIDE TABLE SETTED UP WITH BREAKFAST TRAY; PT. EATING; DURING AM ASSESSMENT PT. EATING FOOD; ST. NOT ABLE TO EAT BREAKFAST DUE TO "EVERY BODY COMES"; EDUCATED ABOUT THE REHAB DENTAL EQUIPMENT MECHANIC ROUNDING DUE TO REQUESTED ON 07/12/20 AFTER EXPRESSING CONCERNS ABOUT PT'S WEAKNESS WITH DR. PASCUAL; PT. ST. "MY IS STUPID" "I AM NOT WEEK" "HE DOES NOT KNOW"; SUGGESTED TO EXPRESS IDEAS TO , SO SPOUSE IS AWARE OF PT. DESIRE; ST. "I WILL"; ST. "I AM GOING HOME TODAY"; EDUCATED D/C ORDERS NOT ON PLACED; ST. "I AM LEAVING"; GENERATION MECHANIC HELPER EXPLAINED TO PT. WILL GIVE SOME TIME BEFORE GIVING MEDICATION IN ORDER FOR PT. TO HAVE BREAKFAST; NO ANSWER; BACK IN THE ROOM AFTER 30 MINS; AM MEDICATION GIVEN; REFUSED LAXATIVE; ABOUT NOON PT'S SPOUSE AT THE NURSING ST. SHOUTING "I AM UPSET BECAUSE MY SAY THEY DID NOT LET HER EAT BREAKFAST"; GENERATION MECHANIC HELPER APPROACHED AT PT'S SPOUSE AND REQUESTED TO BE MINDFUL OF OTHER PTS; SPOUSE ANSWER BACK "I DO NOT CARE ABOUT THE OTHER PATIENTS"; GENERATION MECHANIC HELPER ST. "I CARE ABOUT OTHER PATIENTS BECAUSE THEY ARE TRYING TO REST"; SPOUSE SHOUTING "JUST GO AWAY"; GENERATION MECHANIC HELPER AT THE ROOM TRYING TO EXPLAINED PT'S SPOUSE REASON FOR DENTAL EQUIPMENT MECHANIC ROUNDING; REFUSED EXPLAINATION; SHOUTTED "GET OUT" WHILE POITING WITH FINGER AT GENERATION MECHANIC HELPER; MANAGER VAN IN THE ROOM TOGETHER WITH SECURITY; PT'S SPOUSE VERBAL ABUSIVE; TREATINING SECURITY; MANAGER VAN AND SECURITY TRYING TO SPOUSE TO CALM DOWN; SPOUSE REFUSED IT; EDUCATED ABOUT MUST LEAVE IF THREAT STAFF; REFUSED EDUCATION; ASHER AT THE BED SIDE; PT'S SPOUSE REFUSED TO LEAVE DOOR OPEN; DR. TOMAS FINNEY FOR D/C ORDERS; D/C ORDERS ON PLACED; PT. AND SPOUSE CALMER; D/C PAPERS PROVIDED; EXPLAINED ABOUT PT. REQUIRED OXYGEN AT HOME; SPOUSE REQUESTED INFORMATION ABOUT OXYGEN AND POSSIBLE FLAMABLES; EDUCATED OXYGEN COMPANY WILL EDUCATED THEM ABOUT IT AND SET O2 AT HOME; NO ANSWER BACK; IV D/C; MONITOR D/C; PT. SIGNED D/C INSTRUCTIONS; SPOUSE ST. PT. TOLD HIM EVERYONE SUGGESTED PATIENT "IS BEING MISTREATED AT HOME"; GENERATION MECHANIC HELPER ASKED AT PATIENT WHO SUGGESTED; PT ST "THEY KIND OF IMPLY"; EDUCATED REHAB DENTAL EQUIPMENT MECHANIC ASKED QUESTIONS ABOUT HOUSE IN ORDER TO KNOW POSSIBLE RECOGNIZED TYPE OF REHAB; NO ANSWER; PT. REFUSED HOME HEALTH; OR ANYT TYPE OF SKILL OR REHAB; REFUSED HELP TO GET DRESS; EDUCATED ABOUT CALLING WHEN READY TO BE WALKED OUT TO THEIR RYDE; NO ANSWER; AT 1409 PT'S SPOUSE CALL AT TEMPORARY STAFF ACCOUNTANT AND ST. "WE ARE READY TO FUCKING GET OUT OF HERE"; NURSE AID PROVIDED WHEELCHAIR TO PATIENT; LEFT FROM FLOOR AT 1410; 02 TANK WITH PT.; ASSESSMENT CHARGED; FOLLOWED POC;
--- NOTE | 2020-07-13 13:55 | NUR ---
patient to discharge today. Patient cont with concern for home oxygen but agreeable. She is aware to keep away from wood burning fire. Patient does not want home health care. spouse has phone number for [employer] to deliver oxygen. Patient has a walker at home. She plans home today, spouse at bedside.
--- NOTE | 2020-07-14 10:24 | NUR ---
Note Given: Y Facility List Provided:Y Facility [place]: None chosen at this time Lydia Mas NP discussed BPCI with this pt 07/13/20
== END 2020-07-13 14:00 | disposition home or self-care (01) | DRG 291 ==
LOC: ER 13:28 → EROBS 15:39 → 2N 15:39
PROVIDERS: Emergency Medicine; Hospitalist; Internal Medicine; Internal Medicine Nephrology; Nurse Practitioner; Nurse Practitioner Adult Health; ADMIT Hospitalist; ATTEND Hospitalist
DX: I13.0 Hypertensive heart and chronic kidney disease with heart failure and stage 1 through stage 4 chronic kidney disease, or unspecified chronic kidney disease (principal); N17.0 Acute kidney failure with tubular necrosis; J96.91 Respiratory failure, unspecified with hypoxia; I50.33 Acute on chronic diastolic (congestive) heart failure; I48.21 Permanent atrial fibrillation; K62.5 Hemorrhage of anus and rectum; I48.91 Unspecified atrial fibrillation; I08.1 Rheumatic disorders of both mitral and tricuspid valves; E11.22 Type 2 diabetes mellitus with diabetic chronic kidney disease; N18.32 Chronic kidney disease, stage 3b; I27.20 Pulmonary hypertension, unspecified; K21.9 Gastro-esophageal reflux disease without esophagitis; I49.5 Sick sinus syndrome; Z20.822 Contact with and (suspected) exposure to COVID-19; Z95.0 Presence of cardiac pacemaker; Z90.710 Acquired absence of both cervix and uterus; Z79.4 Long term (current) use of insulin; Z79.01 Long term (current) use of anticoagulants; Z79.899 Other long term (current) drug therapy; Z88.8 Allergy status to other drugs, medicaments and biological substances
CPT/HCPCS: 10081

== ENCOUNTER → 2020-07-21 | Outpatient (CLI) | payer OTHER ==
[~2020-07-21] MED LIST changes: +ATORVASTATIN CA10 MG PO; +CARDIZEM CD240 M1 PO; +HEMORRHOIDAL HC25 MG RECTAL; +TOPROL XL100 MG PO
== END ==
LOC: SJCVC 14:15
PROVIDERS: ATTEND Internal Medicine Cardiovascular Disease
DX: R94.31 Abnormal electrocardiogram [ECG] [EKG] (principal); I45.4 Nonspecific intraventricular block; I13.0 Hypertensive heart and chronic kidney disease with heart failure and stage 1 through stage 4 chronic kidney disease, or unspecified chronic kidney disease; I50.33 Acute on chronic diastolic (congestive) heart failure; E11.22 Type 2 diabetes mellitus with diabetic chronic kidney disease; N18.9 Chronic kidney disease, unspecified; I48.21 Permanent atrial fibrillation; J43.9 Emphysema, unspecified; Z79.899 Other long term (current) drug therapy; Z88.8 Allergy status to other drugs, medicaments and biological substances; Z72.89 Other problems related to lifestyle

== ENCOUNTER 2020-08-12 16:04 | Inpatient (IN) | payer OTHER ==
[~2020-08-12] VITALS: Ht 162.6 cm; Wt 91.8 kg
[~2020-08-12 16:04] MED LIST changes: -MULTIVITAMINS1 EAC7 PO; +SUPER THERAVIT1 EACH PO
[2020-08-12 16:19] VITALS: BP 101/60
[2020-08-12] MEDS ORDERED: TORSEMIDE20 MG PO (16:38)
[2020-08-12] MEDS ORDERED: FUROSEMIDE 20 M20 MG PO (16:39)
--- NOTE | 2020-08-12 16:49 | NUR ---
DOUBLE VISION FOR PAST 7-10 DAYS, BALANCE AND GAIT ISSUES SINCE JUNE 2020.
[2020-08-12 18:10] LABS: ABSOLUTE NEUTROPHILS 4.2 thou/uL (1.4-8.2); BASOPHILS 1.1 % (0.0-2.0); EOSINOPHILS 2.6 % (0.0-3.0); HEMATOCRIT 42.3 % (37.0-47.0); HEMOGLOBIN 13.8 gm/dL (12.0-15.0); LYMPHOCYTES 16.7 % (24.0-44.0); MCH 28.2 pg (26.0-34.0); MCHC 32.6 g/dL (28.0-37.0); MCV 86.5 fL (80.0-100.0); MONOCYTES 14.1 % (1.0-8.0); PLATELET COUNT 174 thou/uL (150-400); POLYS 65.5 % (36.0-66.0); RBC 4.89 mil/uL (4.20-5.00); RDW 15.8 % (10.5-14.5); WBC 6.4 thou/uL (4.0-11.0)
[2020-08-12 18:18] LABS: ANION GAP 10 mmol/L (7-16); BUN 66 mg/dL (7-18); CALCIUM 9.6 mg/dL (8.5-10.1); CHLORIDE 105 mmol/L (98-107); CO2 29 mmol/L (21-32); CREATININE 2.5 mg/dL (0.6-1.0); GLUCOSE 189 mg/dL (74-106); POTASSIUM 4.5 mmol/L (3.5-5.1); SODIUM 144 mmol/L (136-145)
[2020-08-12 18:24] LABS: APTT 38.4 Seconds (24.5-32.8); INR 1.54; PROTIME 16.4 Seconds (9.3-11.4)
[2020-08-12 18:28] LABS: ALBUMIN 3.6 g/dL (3.4-5.0); SGOT 29 U/L (15-37); SGPT 36 U/L (30-65); TOTAL BILIRUBIN 0.9 mg/dL (0.2-1.0); TOTAL PROTEIN 6.9 g/dL (6.4-8.2); TROPONIN-I <0.06 ng/mL (<0.06)
[2020-08-12 18:46] LABS: URINE BILIRUBIN NEGATIVE (Negative); URINE BLOOD TRACE (Negative); URINE CLARITY CLEAR; URINE COLOR YELLOW; URINE GLUCOSE-RANDOM* NEGATIVE (Negative); URINE KETONES NEGATIVE (Negative); URINE LEUKOCYTES-REFLEX 2+ (Negative); URINE NITRITE-REFLEX NEGATIVE (Negative); URINE PROTEIN (DIPSTICK) 1+ (Negative); URINE UROBILINOGEN 0.2 E.U./dl (0.2-1.0)
[2020-08-12 18:54] LABS: AMP/METHAMP Negative (Negative); BARBITURATES Negative (Negative); BENZODIAZEPINES Negative (Negative); COCAINE Negative (Negative); METHADONE Negative (Negative); OPIATES Negative (Negative); PCP Negative (Negative)
[2020-08-12 19:01] LABS: HYALINE CASTS 0-3 Few /LPF (None Seen); SQUAMOUS 0-3 Few /LPF (0-3); URINE WBC-REFLEX >25 Many /HPF (0-5)
[2020-08-12 19:02] LABS: BACTERIA-REFLEX >30 Many /HPF (None Seen); CRYSTALS None Seen /LPF (None Seen); URINE RBC 0-2 Rare /HPF (0-2)
[2020-08-12 20:17] VITALS: BP 104/63
--- NOTE | 2020-08-12 20:18 | NUR ---
Called to give report and was told MARYBETH Valera was with a pt in isolation and will call back
[2020-08-12 20:36] VITALS: BP 120/63
[2020-08-12 21:03] VITALS: BP 111/74
--- NOTE | 2020-08-12 22:39 | NUR ---
PT PRESENTED TO ED FROM HOME. PT HAS HAD BLURRED VISION, SLURRED SPEECH AND DIFFICULTY WITH BALANCE FOR OVER A WEEK. PT ABLE TO ANSWER PERSON, PLACE SITUATION, DATE FOR FLOOR NURSE BUT NOT ABLE TO ANSWER ORIENTATION QUESTIONS IN ED. PT HAD NIH OF 6 IN ED REPORTED TO BE FROM VISION. PROVIDER COMPLETED NIH AND REPORTS DOUBLE VISION, APHASIA/WORD FINDING, LLE EXTENSION DIFFICULTY PT REPORTS ARTHRITIS. PT AMBULATES WITH ROLLING WALKER. IVF INTACT. PT HAD SANDWICH MEAL FOR DINNER. PT REPORTING HEADACHE AND PRN PROVIDED. PT VERBALIZED UNDERSTANDING THAT SHE HAS A UTI. PT STATED HER HAD TO GO HOME TO LET THE DOG OUT. PT REPORTED BEING IN THIS HOSPITAL A MONTH AGO FOR HER HEART. BED ALARM ON.
[2020-08-13 04:05] VITALS: BP 101/67
[2020-08-13 06:11] LABS: ANION GAP 10 mmol/L (7-16); BUN 65 mg/dL (7-18); CALCIUM 8.8 mg/dL (8.5-10.1); CHLORIDE 109 mmol/L (98-107); CHOLESTEROL 113 mg/dL (<200); CO2 26 mmol/L (21-32); CREATININE 2.5 mg/dL (0.6-1.0); GLUCOSE 216 mg/dL (74-106); HDL CHOLESTEROL 36 mg/dL (>40); LDL CHOLESTEROL 57 mg/dL (<100); POTASSIUM 4.4 mmol/L (3.5-5.1); SODIUM 145 mmol/L (136-145); TC:HDL 3.1 Ratio (Not establshd); TRIGLYCERIDE 101 mg/dL (<150); VLDL 20 mg/dL (<40)
[2020-08-13 06:14] LABS: SERUM ASSESSMENT Slight Lipemia
--- NOTE | 2020-08-13 07:09 | EKG ---
[address] [place] [address] ELECTROCARDIOGRAM REPORT Name: GEORGI KAUFMAN V Room #: 362-P ADM IN M.R.#: [id number] Admission: 08/12/20 Attend Phys: Jeromy Yanez MD Discharge: Date of : 46 Report #: [id number] [facility] ED Test Date: 2020-08-12 Test Time: 18:30:36 Pat Name: GEORGI KAUFAMN Department: Room: 362 Gender: F Honey Blender: JCHAIDEBBIE : 1950 Requested By: Piotr Powell Order Number: [id number] MD: Veto Ng Measurements Intervals [place] Rate: 72 P: 0 SD: 47 QRS: 242 QRSD: 160 T: 50 QT: 492 QTc: 539 Interpretive Statements Ventricular-paced complexes No further rhythm analysis attempted due to paced rhythm Nonspecific IVCD with LAD Baseline wander in lead(s) II Compared to ECG 07/12/2020 08:24:03 Myocardial infarct finding no longer present Electronically Signed On 08-13-2020 7:09:20 CDT by Veto Ng [email or web address] <ELECTRONICALLY SIGNED> By: Veto Ng MD, FACC 08/13/20 0709 29 29 Veto Ng MD, [facility] /EPI
[2020-08-13 08:23] VITALS: BP 101/67
[2020-08-13 11:36] VITALS: BP 112/60
[2020-08-13] MEDS ORDERED: TORSEMIDE20 MG PO (14:48)
--- NOTE | 2020-08-13 15:14 | NUR ---
INITIAL ASSESSMENT: Received consult. MAVIS reviewed chart and spoke with nursing and attending physician. Pt was admitted from home due to UTI/Dizziness/Vision Changes. Neuro consulted to r/o CVA. Pt experiencing double vision. Jermaine consulted to evaluate pt for admission to in acute rehab. SW met with pt at bedside. Introduced role of SW. Pt is alert/orientated. Pt reports she lives at home with her . Prior to admission, pt was independent with ADLs. PT has a cane and walker to use as needed. Pt states her walker is too big to go through the doorways in her home. Pt states she is not on O2 at home. Pt has been to [facility]N in the past and used [facility]. Pt's PCP is Dr. Silvio Macias. Pt is agreeable with considering post-acute care if needed. SW offered to contact her to provide update. Pt declined stating that he will be visiting later today. Awaiting input from Jermaine. MAVIS is following to assist as needed with discharge planning.
[2020-08-13] MEDS ORDERED: LEVEMIR100 UNIT/1 SUBQ (15:15)
[2020-08-13] MEDS ORDERED: VITAMIN D310 MC2 PO (15:19)
[2020-08-13] MEDS ORDERED: ALLOPURINOL 10100 M3 PO (15:19)
[2020-08-13] MEDS ORDERED: LOSARTAN POTAS100 MG PO (15:19)
--- NOTE | 2020-08-13 17:54 | NUR ---
ASSUMED PATIENT CARE AT 0700. A/O X4. NIH X1. AFEBRILE. VSS. AMBULATED WITH WALKER. PROGRESSING TOWARDS POC GOALS.
[2020-08-13 20:15] VITALS: BP 121/71
[2020-08-14 00:06] LABS: GLYCOHEMOGLOBIN (HGB A1C) 9.3 % (4.8-5.6)
[2020-08-14 03:15] VITALS: BP 108/63
--- NOTE | 2020-08-14 04:04 | NUR ---
Pt. stated she slept well during the night. Denies any pain. Afebrile. Up to bathroom with assist , ambulated with walker. Bed alarm on , she calls appropriately.
[2020-08-14 04:07] LABS: HEMATOCRIT 36.4 % (37.0-47.0); HEMOGLOBIN 12.3 gm/dL (12.0-15.0); MCHC 33.8 g/dL (28.0-37.0); MCV 85.7 fL (80.0-100.0); RBC 4.25 mil/uL (4.20-5.00); RDW 15.4 % (10.5-14.5); WBC 5.1 thou/uL (4.0-11.0)
[2020-08-14 04:39] LABS: CREATININE 2.1 mg/dL (0.6-1.0); POTASSIUM 4.1 mmol/L (3.5-5.1)
[2020-08-14 07:31] VITALS: BP 114/73
[2020-08-14 11:13] VITALS: BP 139/62
[2020-08-14 14:35] VITALS: BP 139/62
--- NOTE | 2020-08-14 14:39 | NUR ---
MAVIS reviewed chart and spoke with nursing and attending physician. Pt is progressing towards goals for discharge. Discharge home is anticipated for tomorrow. [facility] evaluated pt yesterday. Pt declines going to [facility] and having HH. MAVIS met with pt and spouse at bedside to discuss discharge plan. Pt states she would prefer going to outpatient therapy. Pt's spouse states that there may be a location in [place], [place]. They would like to go there. MAVIS explained to pt and spouse to contact the [facility] location in [place] to arrange first appt and to take script with her to the appt. Pt and spouse verbalized understanding. Pt is interested in seeing Checkroom Chief as an outpatient at [facility]. MAVIS provided address and phone number for [facility] and [facility] in pt's discharge summary. Pt's family will provide transportation home when discharged. MAVIS is following to assist as needed with discharge planning.
[2020-08-14 15:13] VITALS: BP 129/80
--- NOTE | 2020-08-14 16:22 | NUR ---
ASSUMED PATIENT CARE AT 0700. A/0 X4. WALKED IN HALLWAY WITH PT. PROGRESSING TOWARDS POC GOALS.
[2020-08-14 20:05] VITALS: BP 138/77
[2020-08-15 03:14] VITALS: BP 134/81
--- NOTE | 2020-08-15 03:38 | NUR ---
C/O headache at HS , tylenol given with good relief. She slept well during the night. Ambulate with walker to use the bathroom. Denies any other concern, Making progress towards care plan goals.
[2020-08-15 05:07] LABS: HEMATOCRIT 34.2 % (37.0-47.0); HEMOGLOBIN 11.6 gm/dL (12.0-15.0); MCH 28.8 pg (26.0-34.0); MCHC 33.9 g/dL (28.0-37.0); RBC 4.02 mil/uL (4.20-5.00); RDW 15.5 % (10.5-14.5); WBC 4.9 thou/uL (4.0-11.0)
[2020-08-15 05:19] LABS: CALCIUM 8.9 mg/dL (8.5-10.1); CREATININE 1.8 mg/dL (0.6-1.0); POTASSIUM 4.2 mmol/L (3.5-5.1)
[2020-08-15 07:33] VITALS: BP 136/80
[2020-08-15 11:25] VITALS: BP 137/82
[2020-08-15] MEDS ORDERED: CEPHALEXIN500 MG PO (13:00)
--- NOTE | 2020-08-15 13:22 | NUR ---
ASSUMED PATIENT CARE AT 0700. A/O X4. AMBULATED IN ROOM. PROGRESSING TOWARDS POC GOALS.
== END 2020-08-15 13:29 | disposition home or self-care (01) | DRG 871 ==
LOC: ER 16:04 → 3W 19:51 → EROBS 19:51 → 3W 20:44
PROVIDERS: Emergency Medicine; Nurse Practitioner Family; ADMIT Hospitalist; ATTEND Hospitalist
DX: A41.9 Sepsis, unspecified organism (principal); G93.41 Metabolic encephalopathy; N17.0 Acute kidney failure with tubular necrosis; R47.01 Aphasia; G93.40 Encephalopathy, unspecified; N39.0 Urinary tract infection, site not specified; I13.0 Hypertensive heart and chronic kidney disease with heart failure and stage 1 through stage 4 chronic kidney disease, or unspecified chronic kidney disease; R47.1 Dysarthria and anarthria; H53.2 Diplopia; I50.9 Heart failure, unspecified; I48.91 Unspecified atrial fibrillation; N18.30 Chronic kidney disease, stage 3 unspecified; K21.9 Gastro-esophageal reflux disease without esophagitis; E11.22 Type 2 diabetes mellitus with diabetic chronic kidney disease; I49.5 Sick sinus syndrome; F32.9 Major depressive disorder, single episode, unspecified; E11.42 Type 2 diabetes mellitus with diabetic polyneuropathy; R26.89 Other abnormalities of gait and mobility; Z79.4 Long term (current) use of insulin; Z90.710 Acquired absence of both cervix and uterus; Z95.0 Presence of cardiac pacemaker; Z88.6 Allergy status to analgesic agent
CPT/HCPCS: 10879

== ENCOUNTER 2021-04-09 09:55 | Inpatient (IN) | payer OTHER ==
[~2021-04-09] VITALS: Ht 165.1 cm; Wt 101.5 kg
[~2021-04-09 09:55] MED LIST changes: +ALLOPURINOL 10100 M3 PO; +CEPHALEXIN500 MG PO; +FUROSEMIDE 20 M20 MG PO; +LOSARTAN POTAS100 MG PO; +VITAMIN D310 MC2 PO
[2021-04-09 09:56] VITALS: BP 165/101
[2021-04-09 11:12] LABS: ABSOLUTE NEUTROPHILS 5.6 thou/uL (1.4-8.2); EOSINOPHILS 0.9 % (0.0-3.0); HEMATOCRIT 47.2 % (37.0-47.0); HEMOGLOBIN 15.4 gm/dL (12.0-15.0); MCH 28.5 pg (26.0-34.0); MCHC 32.5 g/dL (28.0-37.0); MCV 87.6 fL (80.0-100.0); MONOCYTES 13.5 % (1.0-8.0); PLATELET COUNT 195 thou/uL (150-400); POLYS 73.6 % (36.0-66.0); RBC 5.39 mil/uL (4.20-5.00); RDW 16.2 % (10.5-14.5); WBC 7.7 thou/uL (4.0-11.0)
[2021-04-09 11:27] LABS: CALCIUM 9.5 mg/dL (8.5-10.1); CREATININE 1.7 mg/dL (0.6-1.0); POTASSIUM 4.2 mmol/L (3.5-5.1)
[2021-04-09 11:45] LABS: DIRECT BILIRUBIN 0.6 mg/dL (<0.1-0.2); TOTAL BILIRUBIN 1.9 mg/dL (0.2-1.0); TOTAL PROTEIN 5.8 g/dL (6.4-8.2)
--- NOTE | 2021-04-09 14:23 | EKG ---
[address] [address] ELECTROCARDIOGRAM REPORT Name: GEORGI KAUFMAN V Room #: 170-2 ADM IN M.R.#: [id number] Admission: 04/09/21 Attend Phys: Pk Pascual Discharge: Date of : 46 Report #: [id number] [facility] ED Test Date: 2021-04-09 Test Time: 11:03:33 Pat Name: GEORGI KAUFMAN Department: Room: 170 Gender: F Associate Professor Of History: corinna : 1950 Requested By: Deondre Trevizo Order Number: [id number] MD: Brant Calderon Measurements Intervals [place] Rate: 70 P: 0 RI: 171 QRS: 162 QRSD: 153 T: -20 QT: 504 QTc: 544 Interpretive Statements Paced rhythm Compared to ECG 08/12/2020 18:30:36 No change Electronically Signed On 04-09-2021 14:23:21 PAINTER DECORATOR by Brant Calderon [email or web address] <ELECTRONICALLY SIGNED> By: Brant Calderon MD 04/09/21 1423 1103 1103 Brant Calderon MD /EPI
[2021-04-09 16:50] LABS: URINE BLOOD 2+ (Negative); URINE CLARITY SL CLOUDY; URINE COLOR YELLOW; URINE GLUCOSE-RANDOM* NEGATIVE (Negative); URINE KETONES NEGATIVE (Negative); URINE LEUKOCYTES-REFLEX TRACE (Negative); URINE NITRITE-REFLEX NEGATIVE (Negative); URINE PROTEIN (DIPSTICK) 3+ (Negative); URINE SPECIFIC GRAVITY >= 1.030 (1.005-1.035); URINE UROBILINOGEN 0.2 E.U./dl (0.2-1.0)
[2021-04-09 16:54] LABS: ICTOTEST (BILI CONFIRMATORY) Negative (Negative); URINE BILIRUBIN NEGATIVE (Negative)
[2021-04-09 17:15] LABS: CRYSTALS None Seen /LPF (None Seen); MUCUS 0-3 Light strn/LPF (None Seen); SQUAMOUS 4-10 Moderate /LPF (0-3); URINE RBC 1-2 Rare /HPF (NONE SEEN); URINE WBC-REFLEX 6-15 Few /HPF (0-5)
[2021-04-09 17:16] LABS: COARSE GRANULAR CASTS 0-3 Few /LPF (None Seen)
[2021-04-09 17:38] VITALS: BP 157/96
[2021-04-09 18:05] VITALS: BP 139/92
[2021-04-09 20:15] VITALS: BP 150/87
[2021-04-10 03:55] VITALS: BP 123/82
--- NOTE | 2021-04-10 04:00 | NUR ---
PATIENT RESTING IN HER ROOM AAOX4 WATCHING TV. PATIENT STATES THAT SHE HAS BEEN HAVING STOMACH PAIN FOR ABOUT A WEEK NOW. STATES THAT SHE WAS DIAGNOSED WITH A UTI THAT SHE FEELS HAS SHOWN NO IMPROVEMENTS. PATIENT STATES THAT SHE HAS HAD A BM RECENTLY BUT WHEN SHE ATTEMPTED TO GO TONIGHT SHE WAS UNABLE TO. SHE STATES THAT SHE DOES HAVE PAIN IN THE RIGHT LOWER QUADRANT. PATIENT IS ABLE TO STAND ON HER OWN BUT REQUIRES ASSISTANCE X1. HER VITALS ARE STABLE AND SHE FOLLOWS ALL COMMANDS. NOTED PT IS ON 5LNC. NO S/S OF DISTRESS NOTED AT THIS TIME. WILL CONTINUE TO MONITOR FOR CHANGES IN STATUS.
[2021-04-10 07:30] VITALS: BP 127/84
[2021-04-10 07:30] LABS: CALCIUM 8.7 mg/dL (8.5-10.1); CREATININE 1.8 mg/dL (0.6-1.0); POTASSIUM 4.7 mmol/L (3.5-5.1)
[2021-04-10 10:39] LABS: ABSOLUTE NEUTROPHILS 5.9 thou/uL (1.4-8.2); BASOPHILS 1.1 % (0.0-2.0); EOSINOPHILS 1.2 % (0.0-3.0); HEMOGLOBIN 14.5 gm/dL (12.0-15.0); LYMPHOCYTES 10.5 % (24.0-44.0); MCH 28.7 pg (26.0-34.0); MCHC 32.2 g/dL (28.0-37.0); MCV 89.1 fL (80.0-100.0); MONOCYTES 16.1 % (1.0-8.0); PLATELET COUNT 180 thou/uL (150-400); POLYS 71.1 % (36.0-66.0); RBC 5.05 mil/uL (4.20-5.00); RDW 17.1 % (10.5-14.5); WBC 8.2 thou/uL (4.0-11.0)
[2021-04-10 12:00] VITALS: BP 114/75
[2021-04-10 12:25] LABS: INR 1.14; PROTIME 12.4 Seconds (10.5-12.1)
[2021-04-10 12:31] LABS: ALBUMIN 2.6 g/dL (3.4-5.0); CALCIUM 9.2 mg/dL (8.5-10.1); CREATININE 2.1 mg/dL (0.6-1.0); MAGNESIUM 1.6 mg/dL (1.8-2.4); POTASSIUM 4.7 mmol/L (3.5-5.1); TOTAL BILIRUBIN 1.5 mg/dL (0.2-1.0); TOTAL PROTEIN 4.8 g/dL (6.4-8.2)
[2021-04-10 16:30] VITALS: BP 124/54; BP 702/70
--- NOTE | 2021-04-10 18:30 | NUR ---
PT RESTED IN BED THROUGHOUT THE SHIFT, ABLE TO TURN SELF. PT DENIED ANY COMPLAINTS THROUGHOUT THE SHIFT. NO BM TODAY. PATIENT REMAINED OLIGURIA. SPOUSE AT BEDSIDE THIS AFTERNOON.
[2021-04-10 19:42] VITALS: BP 114/69
--- NOTE | 2021-04-10 23:40 | NUR ---
PATIENT DOING WELL THIS SHIFT. STATES THAT SHE CONTINUES TO HAVE PAIN IN HER ABDOMEN. STATES THAT SHE WISHES THAT SHE COULD JUST HAVE SURGERY TO HAVE HER GALLBLADDER REMOVED. SHE DOES WELL WITH PAIN MEDS. SHE IS 99% ON 3L AT THIS TIME AND SHOWS NO S/S OF DISTRESS. ALL OTHER VSS. SHE IS AAOX4. CONTINUES TO ACCESS BEDSIDE COMMODE FOR RESTROOM. WILL CONTINUE TO MONITOR FOR CHANGES IN SATUS.
[2021-04-11 03:17] VITALS: BP 100/67
[2021-04-11 07:00] VITALS: BP 99/63
[2021-04-11 07:34] LABS: ABSOLUTE NEUTROPHILS 5.5 thou/uL (1.4-8.2); BASOPHILS 1.2 % (0.0-2.0); EOSINOPHILS 1.9 % (0.0-3.0); HEMATOCRIT 45.9 % (37.0-47.0); HEMOGLOBIN 14.8 gm/dL (12.0-15.0); LYMPHOCYTES 12.7 % (24.0-44.0); MCH 28.6 pg (26.0-34.0); MCHC 32.1 g/dL (28.0-37.0); MCV 88.8 fL (80.0-100.0); MONOCYTES 21.3 % (1.0-8.0); PLATELET COUNT 183 thou/uL (150-400); POLYS 62.9 % (36.0-66.0); RBC 5.17 mil/uL (4.20-5.00); RDW 17.2 % (10.5-14.5); WBC 8.8 thou/uL (4.0-11.0)
[2021-04-11 07:45] LABS: CALCIUM 8.9 mg/dL (8.5-10.1); CREATININE 2.8 mg/dL (0.6-1.0); MAGNESIUM 1.5 mg/dL (1.8-2.4); PHOSPHORUS 6.2 mg/dL (2.6-4.7); POTASSIUM 5.2 mmol/L (3.5-5.1)
[2021-04-11 09:45] LABS: HEMATOCRIT 45.3 % (37.0-47.0); HEMOGLOBIN 14.8 gm/dL (12.0-15.0); MCH 29.1 pg (26.0-34.0); MCHC 32.8 g/dL (28.0-37.0); MCV 88.7 fL (80.0-100.0); RBC 5.1 mil/uL (4.20-5.00); RDW 17.3 % (10.5-14.5); WBC 9.4 thou/uL (4.0-11.0)
[2021-04-11 10:06] LABS: APTT 30.1 Seconds (24.5-32.8); INR 1.25; PROTIME 13.5 Seconds (10.5-12.1)
[2021-04-11 11:00] VITALS: BP 103/63
--- NOTE | 2021-04-11 12:26 | EKG ---
[address] [address] [facility] [address] ELECTROCARDIOGRAM REPORT Name: GEORGI KAUFMAN V Room #: 203-P ADM IN M.R.#: [id number] Admission: 04/09/21 Attend Phys: Pk Pascual Discharge: Date of : 46 Report #: [id number] [facility] Test Date: 2021-04-11 Test Time: 09:01:41 Pat Name: GEORGI KAUFMNA Department: Room: 203 Gender: F Continuous Wave Operator: NARENDRA : 1950 Requested By: Pk Pascual Order Number: [id number] MD: Brant Calderon Measurements Intervals [place] Rate: 84 P: 0 AL: 49 QRS: 237 QRSD: 141 T: 84 QT: 472 QTc: 559 Interpretive Statements Ventricular-paced rhythm No further analysis attempted due to paced rhythm Baseline wander in lead(s) V2 Compared to ECG 04/09/2021 11:03:33 No significant changes Electronically Signed On 04-11-2021 12:25:59 WET END SUPERVISOR by Brant Calderon [email or web address] <ELECTRONICALLY SIGNED> By: Brant Calderon MD 04/11/21 1225 09 0 Brant Caldreon MD /SILVER
[2021-04-11 15:20] VITALS: BP 82/54
--- NOTE | 2021-04-11 18:03 | NUR ---
NO FALLS OR INJURIES THIS SHIFT. ALL SAFETY MEASURES IN PLACE. VSS. PATIENT NEEDS ASSISTANCE TO COMPLETE ADLs. ABDOMINAL PAIN NOTED BUT REFUSAL FOR ANY PAIN MEDICATION. SUPPOSITORY ORDERED FOR CONSTIPATION BUT PATIENT REFUSED AT THS TIME, SENNA ORDERED AND GIVEN AT 1700. CRITICAL TROPONINS CALLED X2. HEPARIN GTT STARTED TODAY, REDRAW DUE AT 1835. UA ORDERED BUT PATIENT HAS YET TO VOID. BEDREST PER ORDER. CONSULT TO NEPHRO AND PULM CALLED IN TODAY. METOPROLOL HELD AND LASIX ON HOLD D/T PATIENTS LOW BP. ACHS COMPLETED AND INSULIN GIVEN PER ORDER.
[2021-04-11 19:50] VITALS: BP 89/60
[2021-04-11 23:55] VITALS: BP 87/54
[2021-04-12 03:40] VITALS: BP 96/62
--- NOTE | 2021-04-12 05:34 | NUR ---
pt resting quietly in room extremities elevated on pillows, repositioned as needed, heparin infusing per protocol, denies pain, sbp remains in 80 to 90's hr vpaced, no urine output, will con't to monitor per ppoc.
[2021-04-12 07:00] VITALS: BP 114/75
[2021-04-12 07:29] LABS: CALCIUM 8.3 mg/dL (8.5-10.1); CREATININE 3.7 mg/dL (0.6-1.0)
--- NOTE | 2021-04-12 10:17 | NUR ---
TOOK OVER CARE OF THIS PATIENT AT 0700. PT RESTING IN BED AT THIS TIME. PT WEARING 3 L NC; PT TITRATED DOWN TO 1 L NC BY RESPIRATORY THERAPIST. PT SOA WITH EXERTION. PT AMBULATED WITH CANE AND GAIT BELT. PT WORKED WITH PHYSICAL THERAPY THIS AM. SPOKE WITH DR. NINA REGARDING PTS CARE AND CONTINUES TO BE OLIGURIC; BLADDER SCAN COMPLETED BUT STRAIGHT CATH NOT INDICATED PER RESULTS. HEPARIN GTT CONTINUED. VSS. FALL PRECAUTIONS IN PLACE. DENIES ANY NEEDS AT THIS TIME.
[2021-04-12 11:50] VITALS: BP 102/67
[2021-04-12 13:33] LABS: PROT/CREAT RATIO 0.9; URINE CREATININE-RANDOM* 231.3 mg/dL; URINE PROTEIN-RANDOM* 217.4 mg/dL (<11.9)
[2021-04-12 15:40] VITALS: BP 113/74
--- NOTE | 2021-04-12 16:15 | NUR ---
spoke to dr. cuellra regarding patients kidney function and results of urine random protein and creatinine. pt continues to have limited urine output. straight cath completed this am; urine dark yellow w foul odor. new orders received from dr. cuellar. will continue to monitor.
--- NOTE | 2021-04-12 16:16 | NUR ---
neurology consulted via telemedicine. will continue to monitor patient's neuro status and mentation. new orders received.
--- NOTE | 2021-04-12 17:00 | NUR ---
Case opened to follow for dc planning. Cm role introduced to pt/spouse at bedside. Spouse answered most of the questions as pt was dozing off and on. Pt being treated for CHF/KATHY/Cholecystitis. She is needing a cardiac cath but it is on hold due to rising cre. O2 at 1liter this afternoon. Spouse notes the pt has an inogene tank but only uses it PRN. She has a cane and a rwalker as well if needed. She has been doing outpt therapy at [facility] in [facility]. She has been on [facility] acute rehab and had [facility] in the distant past. Her pcp is Dr.Theodore Macias who recently retired but she plans to continue using his office for primary care. They have 2-3 steps to enter their home then everything is on one level. Pt's spouse is hopeful she can dc to outpt therapy pending her progress. PT/OT chiquita requested. Will follow along.
[2021-04-12 17:37] LABS: URINE COLOR YELLOW
[2021-04-12 17:38] LABS: URINE CLARITY CLOUDY; URINE GLUCOSE-RANDOM* NEGATIVE (Negative); URINE KETONES 2+ (Negative); URINE PROTEIN (DIPSTICK) 2+ (Negative)
[2021-04-12 17:39] LABS: URINE BILIRUBIN NEGATIVE (Negative); URINE BLOOD NEGATIVE (Negative); URINE LEUKOCYTES NEGATIVE (Negative); URINE NITRITE NEGATIVE (Negative); URINE UROBILINOGEN 0.2 E.U./dl (0.2-1.0)
--- NOTE | 2021-04-12 18:34 | NUR ---
SPOKE TO DR. NINA REGARDING PTS CARE. ORDERED TO PLACE URINARY CATHETER TO OBTAIN ACCURATE INTAKE AND OUTPUT. WILL CONTINUE TO MONITOR.
[2021-04-12 20:00] VITALS: BP 110/66
[2021-04-13 04:00] VITALS: BP 109/66
--- NOTE | 2021-04-13 06:07 | NUR ---
PT REMAINED CONFUSED THRU THE NOC ALERT TO NAME, HELPED REPOSITION FREQUENTLY, SCOOTS TO END OF BED AND SAYS ITS TIME TO "HIT THE ROAD". TOLERATING NECTAR LIQUIDS, PPN CON'T TO INFUSE THRU R IJ, INCONT OF STOOL, SLEPT ON AND OFF THRU THE NOC, NO C/O PAIN, VSS, WILL CON'T TO MONITOR PER PPOC
--- NOTE | 2021-04-13 06:23 | NUR ---
PT RESTING QUIETLY IN BED WITH FREQUENT REPOSITIONING, TREMORSIN HANDS NEEDS ASSIST WITH PO INTAKE, DENIES PAIN, ABD STILL EXTENDED, MARTINEZ WITH DARK NATHAN URINE, VSS, HEPARIN CON'T TO INFUSE LABS THERAPUTIC, WILL CON'T TO MONITOR PER PPOC.
[2021-04-13 07:30] VITALS: BP 112/70
[2021-04-13 11:15] VITALS: BP 112/68
[2021-04-13 12:31] LABS: CALCIUM 8.4 mg/dL (8.5-10.1); CREATININE 3.8 mg/dL (0.6-1.0); POTASSIUM 3.8 mmol/L (3.5-5.1)
--- NOTE | 2021-04-13 16:01 | NUR ---
[facility] CONSULT PLACED SHOULD PT DISCHARGE TO POST ACUTE REHAB ONCE MEDICALLY STABLE. PT HAS BEEN ON 5N IN THE PAST AND USED [facility] IN THE PAST. AWAITING RECENT THERAPY RECOMMENDATIONS. CM WILL CONTINUE TO FOLLOW.
[2021-04-13 19:21] VITALS: BP 101/59
[2021-04-14] VITALS (7 sets, daily range): BP systolic 98–134; BP diastolic 38–78
--- NOTE | 2021-04-14 04:05 | NUR ---
Assumed pt care at 1900. Pt is very lethargic and hardly arousable. Scheduled meds not administered because pt is very lethargic. Pt is on oxygen. Fall precaution in place. Assesment completed and documented, continue to monitor.
[2021-04-14 08:24] LABS: CALCIUM 8.7 mg/dL (8.5-10.1); CREATININE 3.9 mg/dL (0.6-1.0); POTASSIUM 5.1 mmol/L (3.5-5.1)
--- NOTE | 2021-04-14 15:27 | NUR ---
REVIEWED PT CHART AND DISCUSSED WITH CARE TEAM. 5N HAS ACCEPTED FOR POST ACURE REHAB. PT HAD DECLINE IN CONDITION AND NOT MEDICALLY STABLE TO DC AT THIS TIME. CM WILL CONTINUE TO FOLLOW.
[2021-04-15 03:36] LABS: CALCIUM 8.1 mg/dL (8.5-10.1); CREATININE 3.6 mg/dL (0.6-1.0); POTASSIUM 4.8 mmol/L (3.5-5.1)
[2021-04-15 03:50] VITALS: BP 139/86
--- NOTE | 2021-04-15 05:12 | NUR ---
ASSUMED PT CARE AT 1900, PT IS LETHARGIC, ORIENTEX3, ANSWERS QUESTIONS APPROPRIATELY, BUT FALLS BACK ASLLEP, PREGABALIN HELD THIS SHIFT, VPACED ON TELE, DENIES PAIN OR SOB, REMAINS ON RA, VSS, 300CC FROM UJAN THIS SHIFT, ASSESSMENTS CHARTED, FREQUENT ROUNDING MAINTAINED, WILL CONTINUE TO MONITOR
[2021-04-15 07:15] VITALS: BP 132/75
--- NOTE | 2021-04-15 11:06 | NUR ---
Pt to start temp dialysis. No weekend dc anticipated. 5N is continuing to follow along for acute rehab stay when medically stable.
[2021-04-15 11:25] VITALS: BP 117/65
--- NOTE | 2021-04-15 18:31 | NUR ---
patient assesments charted. patient still confused and lethargic. temporary dialysis catheter placced.
[2021-04-15 20:01] VITALS: BP 130/73
[2021-04-16 04:27] LABS: CALCIUM 8.2 mg/dL (8.5-10.1); CREATININE 3.2 mg/dL (0.6-1.0); POTASSIUM 4.5 mmol/L (3.5-5.1)
[2021-04-16 05:28] VITALS: BP 132/75
[2021-04-16 07:24] VITALS: BP 118/61
--- NOTE | 2021-04-16 08:05 | NUR ---
PATIENT RESTING IN BED DURING SHIFT. PATIENT ALERT TO PAIN, HALLUCINATING. AV PACED, ON CONTINUOUS PULSE OX. PATIENT HAD TEMPORARY DIALYSIS CATH INSERTED YESTERDAY.
[2021-04-16 11:13] VITALS: BP 144/89
--- NOTE | 2021-04-16 12:06 | NUR ---
Nutrition: pt seen due to LOS. Admit with SOB, CHF, cholecystitis, NSTEMI. KATHY/CKD. S/P temporary dialysis catheter placement however no dialysis has been done. Pt previously eating well on renal diet, 50-100% of meals recorded. Pt was placed NPO this am however due to confusion and lethargy. Weights variable between 200-230# back to June. No plans for cardiac cath due to renal issues. Rehab unit consult. Will follow plan of care but place as low nutrition risk for now.
[2021-04-16 15:34] VITALS: BP 133/69
--- NOTE | 2021-04-16 19:23 | NUR ---
PATIENT ONLY RESPONDS TO PAINFUL STIMULUS. SHE CONTINUES TO MUMBLE AT TIMES AND HALLUCINATE. SHE'S LETHARGIC. ALL EXTREMETIES EDEMATOUS AND ELEVATED ON PILLOWS. Q2 TURNS. Q6 ACCUCHECKS. , JEF, AT BEDSIDE FOR MAJORITY OF THE DAY. DR. CHRISTIANSON CALLED AND DISCUSSED PLAN WITH , PATIENT UNDERSTOOD AND WAS COMPLETELY APPRECIATIVE OF THE INFORMATION. CONTINUE TO MONITOR.
[2021-04-16 20:15] VITALS: BP 131/75
[2021-04-17 04:36] LABS: CALCIUM 8.5 mg/dL (8.5-10.1); CREATININE 3.1 mg/dL (0.6-1.0); PHOSPHORUS 5.4 mg/dL (2.5-4.9); POTASSIUM 4.8 mmol/L (3.5-5.1)
[2021-04-17 04:45] VITALS: BP 139/83
--- NOTE | 2021-04-17 05:32 | NUR ---
PATIENT RESTING IN HER ROOM. SHE IS AAO TO SELF ONLY. RESPONDS MINIMALLY TO SOME BASELINE QUESTIONS. STATES THAT SHE IS NOT FEELING GOOD. DENIES ANY PAIN BUT JUST DOES NOT FEEL GOOD. PATIENT APPEARS LETHARGIC BUT AGAIN AROUSABLE. SHE IS 96% RA. ALL VITAL SIGNS STABLE. PATIENT IS ON BED REST. NOTED SOME REDNESS ON BOTTOM. APPLIED CREAM TO AREA. WILL CONTINUE TO MONITOR FOR CHANGES IN STATUS.
[2021-04-17 07:00] VITALS: BP 138/73
--- NOTE | 2021-04-17 10:30 | NUR ---
TOOK OVER CARE OF THIS PATIENT AT O700. PT DROWSY, RESPONDS TO VERBAL STIMULI. VSS, ON ROOM AIR, CONTINUOUS PULSE OXIMETRY. PTS AT BEDSIDE AT THIS TIME. PT REMAINS NPO AT THIS TIME DUE TO LETHARGY AND ASPIRATION RISKS. WILL CONTINUE TO MONITOR. ASSESSMENTS CHARTED. FALL PRECAUTIONS IN PLACE.
[2021-04-17 11:00] VITALS: BP 119/69
[2021-04-17 15:00] VITALS: BP 117/67
[2021-04-17 15:55] LABS: HCO3 18.5 mmol/L (22.0-26.0); PCO2 27.8 mmHg (35.0-45.0); PO2 127.2 mmHg (80.0-100.0); pH 7.441 (7.360-7.450); sO2 98.7 % (92.0-98.0)
--- NOTE | 2021-04-17 17:28 | NUR ---
PT MORE LETHARGIC THIS AFTERNOON AND RESPONDING TO ONLY TACTILE STIMULUS. INFORMED DR. CROUCH WELL NEPHROLOGY PROVIDER. ORDERED ABGS; REPORTED ABG RESULTS TO PROVIDERS. NO NEW ORDERS. PT SLEEPING IN BED; HAS STARTED TO RESPOND MORE TO VERBAL STIMULI.
[2021-04-17 19:45] VITALS: BP 117/67
--- NOTE | 2021-04-17 22:07 | NUR ---
PATIENT RESTING IN HER ROOM WITH EYES CLOSED. SHE IS ALERT TO PERSON ONLY. SHE DOES RESPOND WHEN TO SOME QUESTIONS. SHE IS MORE CONFUSED TONIGHT. SHE HAS HER DAYS AND NIGHTS MIXED UP. SHE WAS CALLING OUT FOR HER . SHE THOUGHT HE WAS STILL PRESENT. PATIENT DENIES PAIN AT THIS TIME. CONTINUES TO BREATH WELL WITH 98% RA. VSS. A/V PACED ON THE MONITOR. NO S/S OF DISTRESS NOTED. WILL CONTINUE TO MONITOR FOR CHANGES ON STATUS.
[2021-04-18] VITALS (7 sets, daily range): BP systolic 118–188; BP diastolic 66–121
[2021-04-18 04:02] LABS: ALBUMIN 1.8 g/dL (3.4-5.0); CALCIUM 8.5 mg/dL (8.5-10.1); CREATININE 2.6 mg/dL (0.6-1.0); PHOSPHORUS 4.7 mg/dL (2.5-4.9); POTASSIUM 3.9 mmol/L (3.5-5.1)
--- NOTE | 2021-04-18 19:39 | NUR ---
PATIENT ABLE TO TELL ME HER FIRST AND LAST NAME AT BEGINNING OF SHIFT. PATIENT BECAME MORE CLEAR MENTALLY THROUGHOUT THE DAY. FULL COHERENT CONVERSATIONS BY 1200. HEMODIALYSIS TODAY. BEDSIDE SWALLOW STUDY PERFORMED AND PASSED. PATIENT ATE HEART HEALTHY DINNER, 50% WITHOUT ANY DIFFICULTY. AT BEDSIDE AND ASSISTED PATIENT IN EATING. WILL CONTINUE TO FOLLOW.
[2021-04-19] VITALS (9 sets, daily range): BP systolic 105–129; BP diastolic 58–88
--- NOTE | 2021-04-19 03:15 | NUR ---
TODAY PATIENT IS MORE ALERT AND TALKATIVE. SHE CONTINUES TO HAVE SOME CONFUSION AND STAYS QUIET WHEN NOT SPOKEN TO DIRECTLY. EDEMA REMAINS 3+ IN HER UPPER EXTREMETIES WITH SOME WEAPING. PATIENT STATES THAT SHE IS NOT HAVING ANY PAIN. HAS BEEN ABLE TO EAT TODAY. VSS. NO S/S OF DISTRESS NOTED. COMPLIANT WITH ALL TREATMENT. WILL CONTINUE TO MONITOR.
[2021-04-19 05:18] LABS: HEMATOCRIT 40.4 % (37.0-47.0); HEMOGLOBIN 13.3 gm/dL (12.0-15.0); MCH 29.1 pg (26.0-34.0); MCHC 32.9 g/dL (28.0-37.0); MCV 88.5 fL (80.0-100.0); RBC 4.57 mil/uL (4.20-5.00); RDW 16.7 % (10.5-14.5); WBC 7.7 thou/uL (4.0-11.0)
[2021-04-19 05:33] LABS: ALBUMIN 1.9 g/dL (3.4-5.0); CALCIUM 7.9 mg/dL (8.5-10.1); CREATININE 2.1 mg/dL (0.6-1.0); PHOSPHORUS 3.3 mg/dL (2.6-4.7); POTASSIUM 3.2 mmol/L (3.5-5.1)
--- NOTE | 2021-04-19 07:44 | 2DMMODE ---
[facility] [address] [place] [address] 2 D/M-MODE ECHOCARDIOGRAM Name: GEORGI KAUFMAN V Room #: 203-P ADM IN M.R.#: [id number] Admission: 04/09/21 Attend Phys: Pk Pascual Discharge: Date of : 46 Report #: [id number] THIS REPORT FOR: cc: FAM - Family physician unknown FAM - Family physician unknown Brant Calderon MD ~ APPROVED REPORT Study performed: 04/10/2021 10:40:25 EXAM: Comprehensive 2D, Doppler, and color-flow Echocardiogram Patient Location: In-Patient Room #: 203 Status: routine BSA: 1.96 HR: 82 bpm Rhythm: NSR Other Information Study Quality: Technically Difficult Risk Factors: Cardiac Risk Factors: HTN Indications ICD: Cardiomyopathy Echo Enhancing Agent Indication: Endocardial border delineation Agent(s) / Amount(s) Used: Optison 3 cc 2D Dimensions RVDd: 36.58 mm IVSd: 11.29 (7-11mm) LVOT Diam: 20.46 (18-24mm) LVDd: 46.71 mm PWd: 11.12 (7-11mm) Ascending Ao: 32.73 (22-36mm) LVDs: 32.88 (25-40mm) Left Atrium: 43.78 (27-40mm) Aortic Root: 29.50 mm Volumes Left Atrial Volume (Systole) [facility] [address] [address] 2 D/M-MODE ECHOCARDIOGRAM Name: MANDEEPGEORGI Sundar Room #: 203-P ADM IN M.R.#: [id number] Admission: 04/09/21 Attend Phys: Pk Webb Discharge: Date of : 46 Report #: [id number] Single Plane 4CH: 50.51 mL Single Plane 2CH: 51.59 mL Aortic Valve AoV Peak Jeremiah.: 0.78 m/s AO Peak Gr.: 2.46 mmHg LVOT Max P.03 mmHg LVOT Max V: 0.71 m/s ANALILIA Vmax: 2.99 cm2 Mitral Valve E/A Ratio: 1.9 MV Decel. Time: 219.37 ms MV E Max Jeremiah.: 1.01 m/s MV A Jeremiah.: 0.52 m/s MV PHT: 63.62 ms Tricuspid Valve TR Peak Jeremiah.: 3.17 m/s TR Peak Gr.: 40.07 mmHg Left Ventricle The left ventricle is normal size. Mild concentric left ventricular hypertrophy. Left ventricular systolic function is moderately decreased. LVEF is 35-40%. Right Ventricle The right ventricle is normal size. The right ventricular systolic function is normal. Device lead is present in the right ventricle. Atria Left atrium is mildly dilated. The right atrium size is normal. Aortic Valve The aortic valve is normal in structure. Mild aortic regurgitation. There is no aortic valvular stenosis. Mitral Valve Mitral valve leaflets are mildly thickened. Mild mitral regurgitation. No evidence of mitral valve stenosis. Tricuspid Valve The tricuspid valve is normal in structure. Mild tricuspid regurgitation. Estimated PAP 46 mmHg. Pulmonic Valve The pulmonary valve is normal in structure. Mild pulmonic [facility] [address] [place] [address] 2 D/M-MODE ECHOCARDIOGRAM Name: GEORGI KAUFMAN V Room #: 203-P [facility].#: [id number] Admission: 04/09/21 Attend Phys: Pk Webb Discharge: Date of : 46 Report #: [id number] regurgitation. Great Vessels The aortic root is normal in size. IVC is dilated and collapses <50% with inspiration. Pericardium There is no pericardial effusion Critical Notification Critical Value: No <Conclusion> The left ventricle is normal size. Mild concentric left ventricular hypertrophy. Left ventricular systolic function is moderately decreased. LVEF is 35-40%. The right ventricle is normal size. Device lead is present in the right ventricle. Mild aortic regurgitation. Mild mitral regurgitation. Mild tricuspid regurgitation. Estimated PAP 46 mmHg. <ELECTRONICALLY SIGNED> By: Brant Calderon MD 04/10/211701 01 01 Brant Calderon MD /INF
--- NOTE | 2021-04-19 14:27 | NUR ---
UPDATE REGARDING REHAB CONSULTATION: AT THIS TIME PT REQUIRES UPDATED PT/OT NOTES IN ORDER TO DETERMINE IF SHE IS AN APPROPRIATE CANDIDATE. THIS MORNING PT WAS OFF UNIT FOR DIAGNOSTICS AND THERAPIES WERE UNABLE TO SEE.
--- NOTE | 2021-04-19 17:52 | NUR ---
PATIENT AMBULATED WITH PT THIS SHIFT VERY WELL. PATIENT STILL REMAINS WEAK BUT COOPERATIVE AND HELPFUL WITH AMBULATION PROGRESS. EDEMATOUS SKIN ISSUES REMAIN. NEW WOUND APPEARED THIS SHIFT D/T POSSIBLE WEEPING OF SKIN INTEGRITY. BS REMAINS STABLE WITH INSULIN MEDICATIONS. CHANGE OF PICC DRESSING PREPARED THIS AFTERNOON SHIFT. PATIENT EXPRESSES DESIRE TO CONTINUE EATING PROPERLY WITH SPOUSE BY BEDSIDE MOST OF THIS SHIFT.
[2021-04-20 04:44] VITALS: BP 147/81
[2021-04-20 04:57] LABS: CALCIUM 7.9 mg/dL (8.5-10.1); POTASSIUM 3.4 mmol/L (3.5-5.1)
--- NOTE | 2021-04-20 05:07 | NUR ---
PT RESTING QUIETLY THRU THE NOC, REFUSED TURNS THIS AM, NO C/O PAIN, MARTINEZ WITH MINIMUM AMT OF URINE, VSS, WORKING TOWARDS GOING TO REHAB WILL CON'T TO MONITOR PER PPOC.
[2021-04-20 08:00] VITALS: BP 124/66
[2021-04-20 09:35] VITALS: BP 124/66
[2021-04-20 10:07] LABS: HEP B SURFACE Ab(ANTI-HBS Non Reactive (()); HEPATITIS B SURFACE AG Negative (Negative)
[2021-04-20] MEDS ORDERED: XARELTO15 MG PO (11:31)
[2021-04-20] MEDS ORDERED: CLOPIDOGREL75 MG PO (11:31)
[2021-04-20] MEDS ORDERED: SODIUM BICARBO650 M3 PO (11:31)
--- NOTE | 2021-04-20 11:40 | NUR ---
PT ACCEPTED TO DISCHARGE TO [address] CANNON PT IS MEDICALLY STBLE TO DC TODAY. SPOKE TO PT AND SHE IS AWARE AND AGREEABLE. ASKED TO CALL PTS AND PT INSTRUCTED HE WAS ALREADY AWARE. PT HAS HAD CONFUSION SO THIS CM CALLED PTS AND HE VERBALIZED UNDERSTANDING. RN AWARE. NO FURTHER CM INTERVENTIONS AT THIS TIME.
--- NOTE | 2021-04-20 14:56 | NUR ---
WOUND CONSULT; THE PATIENT IS GOING TO REHAB TODAY. THE WOUND IS A FRICTION ETIOLOGY WITH FRAYED EDGES CLEARLY SEEN TO THE COCCYX REGION AND SLIGHT BRUISING. NO S/S OF INFECTION. RECOMMENDATIONS; -ZGUARD TO COCCYX REGION BID. -TURN THIS PATIENT MORE FREQUENTLY THAN Q2H. -LOW AIRLOSS PUMP ON THE ISOFLEX SETTING AT ALL TIMES. RN PRESENT.
[2021-04-20 16:25] VITALS: BP 121/73
--- NOTE | 2021-04-20 16:50 | NUR ---
PATIENT DISCHARGED TO REHAB ON 5N. REPORT GIVEN TO MARYBETH MOLINA. NO QUESTIONS OR CONERNS AT TIME OF REPORT. AT BEDSIDE AND TRANSFERED WITH PATIENT TO ROOM 512. IV AND TELE REMOVED.
== END 2021-04-20 16:56 | DRG 682 ==
LOC: ER 09:55 → EROBS 13:36 → 2N 13:36
PROVIDERS: Hospitalist; Internal Medicine; Internal Medicine Cardiovascular Disease; Student in an Organized Health Care Education/Training Program; ADMIT Hospitalist; ATTEND Hospitalist
PROC: B5181ZA Fluoroscopy of Superior Vena Cava using Low Osmolar Contrast, Guidance (ICD-10-PCS; principal; 2021-04-15)
PROC: 02HV33Z Insertion of Infusion Device into Superior Vena Cava, Percutaneous Approach (ICD-10-PCS; principal; 2021-04-15)
DX: N17.9 Acute kidney failure, unspecified (principal); G93.41 Metabolic encephalopathy; I13.0 Hypertensive heart and chronic kidney disease with heart failure and stage 1 through stage 4 chronic kidney disease, or unspecified chronic kidney disease; N39.0 Urinary tract infection, site not specified; K80.00 Calculus of gallbladder with acute cholecystitis without obstruction; I48.21 Permanent atrial fibrillation; I42.9 Cardiomyopathy, unspecified; I50.9 Heart failure, unspecified; R77.8 Other specified abnormalities of plasma proteins; Z20.822 Contact with and (suspected) exposure to COVID-19; K21.9 Gastro-esophageal reflux disease without esophagitis; N18.30 Chronic kidney disease, stage 3 unspecified; I25.10 Atherosclerotic heart disease of native coronary artery without angina pectoris; I49.5 Sick sinus syndrome; I07.1 Rheumatic tricuspid insufficiency; E11.22 Type 2 diabetes mellitus with diabetic chronic kidney disease; J98.2 Interstitial emphysema; K59.09 Other constipation; R53.81 Other malaise; B95.2 Enterococcus as the cause of diseases classified elsewhere; Z79.4 Long term (current) use of insulin; Z95.0 Presence of cardiac pacemaker; Z90.710 Acquired absence of both cervix and uterus; Z88.6 Allergy status to analgesic agent; Z82.49 Family history of ischemic heart disease and other diseases of the circulatory system; Z79.01 Long term (current) use of anticoagulants
CPT/HCPCS: 10081; 32100

== ENCOUNTER 2021-04-20 12:28 | Inpatient (IN) | payer OTHER ==
[~2021-04-20] VITALS: Ht 167.6 cm; Wt 104.9 kg
[~2021-04-20 12:28] MED LIST changes: +CLOPIDOGREL75 MG PO; +SODIUM BICARBO650 M3 PO; +XARELTO15 MG PO
--- NOTE | 2021-04-20 15:55 | NUR ---
Chart review. Going to admit to 5n acute rehab today. Malena resting. Cm visited with her latricia [phone]. She had temp dialysis while on acute, per renal no further dialysis needed. Increased weakness. Intro to cm, weekly team meeting and dcp. They live at home , 3 steps to enter. She had fall at home outside on porch. Has cane and roller walker with a seat, she was starting to use cane after her fall. has prn o2 at home through [employer]. She was cooking, cleaning and independent with adl's. Manage her own medication. 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 She has been to 5n in the past, had [facility] in the past and been to outpt rehab at [facility] before. Will cont following as needed for dc needs.
--- NOTE | 2021-04-20 16:50 | NUR ---
PT ARRIVED TO FLOOR VIA BED. PT ACCOMPANIED BY HER JEF. PT ALERT AND ORIENTED TO PERSON, PLACE, MONTHS. PT LUNGS CLEAR AND DIMINISHED TO BASES, ON ROOM AIR. PT HAS MARTINEZ TO DD WITH CLEAR YELLOW URINE. PT HAS EDEMA TO ARMS BILATERALY +1 AND LOWER EXT. PT STATED THAT SHE HAS TRIED NADIA HOSE IN THE PAST, HER CALFS ARE TOO BIG FOR THE RIGHT SIZE HOSE. PT HAS RT JUGULAR FOR DIALYSIS. PT LAST DIALYSIS WAS 04/18 AND HAS NOT NEEDED ANOTHER ONE DUE TO HER LABS ARE IMPROVING. PT WAS BEING FED BY HER , NO SIGNS OF COUGHING WITH EATING. PT STATED SHE HAS BEEN WEAK AND NEEDS ASSISTANCE WITH EATING. PT HAS REDDNESS IN ABD FOLDS, AND ALSO QUARTER SIZE STAGE 2 TO BUTTOCKS. PICTURES WAS NOT TAKEN AT THIS TIME. PT FELL ASLEEP AFTER EATING, PT DID ANSWER ADMISSION QUESTIONS.
[2021-04-20 17:00] VITALS: BP 121/73
[2021-04-20 19:17] VITALS: BP 118/72
--- NOTE | 2021-04-21 04:52 | NUR ---
ASSUMED CARE AT 1915 OF 04/20. PATIENT IS A&OX3, SLOW TO RESPOND, COOPERATIVE WITH CARES AND ABLE TO MAKE NEEDS KNOWN. BLE AND BUE EDEMA PRESENT, ALL EXTREMITIES ARE ELEVATED WHILE IN BED. PATIENT REFUSED SCD'S, AND STATES THAT THEY ARE CONSTRICTIVE. EDUCATION ON PURPOSE OF SCD USAGE AND RISKS OF DVT PROVIDED TO PATIENT, AND SHE EXPRESSES UNDERSTANDING BUT INSISTS THAT SHE DOES NOT WANT THEM ON. BILATTERAL CALVES EXAMINED, NO DISCOLORATION NOTED, NO SIGNIFICANT SWELLING, PATIENT DENIES PAIN IN CALVES. PATIENT REPORTS SORENESS TO BOTTOM. OPEN FRICTION WOUND WAS MEASURED, PICTURE OBTAINED AND PLACED IN CHART. Q2H TURNS PERFORMED PATIENT TOLERATED. Z-GUARD APPLIED TO SACRAL AREA. PATIENT HAD A COUPLE EPISODES SMALL INCONTINENT LOOSE STOOLS OVERNIGHT AND PASSING ALOT OF FLATUS. DENIES ADBOMINAL DISCOMFORT, BS PRESENT IN ALL 4Q, ABD SLIGHTLY DISTENDED. MARTINEZ TO DD, DRAINNING YELLOW URINE. TEMPORARY DIALISIS CATHETER TO IJ IS IN PLACE AND INTACT. DRESSING IS INTACT, SOME IRRITATION NOTED AROUND AND UNDER DRESSING, NO WARMTH, DRAINAGE OR PAIN NOTED, WILL CONTINUE TO MONITOR. PATIENT TOLERATED ORAL MEDICATIONS WHOLE WITH THIN LIQUIDS. PATIENT ALSO HAD A SNACK AT HS, AND REQUIRED ASSISTANCE WITH FEEDING DUE TO BUE WEAKENESS. PATIENT IS SLEEPING ON AND OFF THROUGHOUT THE NIGHT, FALL PRECAUTIONS IN PLACE, CALL LIGHT WITHIN REACH. WILL CONTINUE TO MONITOR.
[2021-04-21 06:40] LABS: HEMATOCRIT 37.5 % (37.0-47.0); HEMOGLOBIN 12.8 gm/dL (12.0-15.0); MCH 30.5 pg (26.0-34.0); MCHC 34.2 g/dL (28.0-37.0); MCV 89.1 fL (80.0-100.0); RBC 4.21 mil/uL (4.20-5.00); RDW 17.6 % (10.5-14.5); WBC 6.8 thou/uL (4.0-11.0)
[2021-04-21 08:30] VITALS: BP 136/86
[2021-04-21 11:01] LABS: ALBUMIN 2.2 g/dL (3.4-5.0); CALCIUM 8.2 mg/dL (8.5-10.1); CREATININE 2.2 mg/dL (0.6-1.0); POTASSIUM 3.8 mmol/L (3.5-5.1); TOTAL BILIRUBIN 1.1 mg/dL (0.2-1.0); TOTAL PROTEIN 4.9 g/dL (6.4-8.2)
--- NOTE | 2021-04-21 14:14 | NUR ---
RD consult received for pt newly admitted to rehab unit. Recent acute stay with CHF, cholecystitis (conservative treatment), NSTEMI and KATHY requiring brief dialysis. Pt also with buttock ulcer to coccyx, wound care indicated due to friction. Appetite has been fair to good and did require few days of npo status. Wts highly variable 200-230 lb and now admit 207 lb. Will add glucerna supplement bid to start until intake is more consistent. Otherwise, low nutrition risk with appropriate nutrition interventions in place
[2021-04-21 19:22] VITALS: BP 109/74
--- NOTE | 2021-04-22 00:12 | NUR ---
PT ALERT AND ORIENTED X 4, SEEMS CONFUSED AT TIMES. MARTINEZ PATENT DRAINING YELLOW URINE WITH SEDIMENT IN TUBING. PT HAS GENERALIZED EDEMA WITH ARMS WEEPING. PT HAS OPEN AREA ON RIGHT BUTTOCKS. Z GUARD APPLIED AFTER INCONT. INCONT OF STOOL X 2 SO FAR TONIGHT. PT DENIES PAIN OR DISCOMFORT. CONCERNED ABOUT GETTING SLEEP TONIGHT. MELATONIN GIVEN AT HS ORDERED. RIJ INTACT. BED ALARM ON FOR SAFETY. PT APPEARS TO BE SLEEPING ON HOURLY ROUNDS.
[2021-04-22 07:00] VITALS: BP 132/84
[2021-04-22 07:01] LABS: ALBUMIN 2.2 g/dL (3.4-5.0); CALCIUM 8.2 mg/dL (8.5-10.1); CREATININE 2.1 mg/dL (0.6-1.0); PHOSPHORUS 2.9 mg/dL (2.5-4.9); POTASSIUM 3.7 mmol/L (3.5-5.1)
--- NOTE | 2021-04-22 12:20 | NUR ---
THE RIGHT IJ DIALYSIS LINE WAS REMOVED PER HOSPITAL POLICY, PRESSURE HELD [id number]. AN OCCLUSIVE DRESSING WAS APPLIED
--- NOTE | 2021-04-22 13:24 | NUR ---
team, recommendation: jamison to be dc. No more dialysis, labs to follow. moderate cognition, severe memory deficits. encouragement. lack of motivation. Re team.
[2021-04-22 19:29] VITALS: BP 124/70
[2021-04-23 07:33] VITALS: BP 143/93
[2021-04-23 08:08] LABS: ALBUMIN 2.3 g/dL (3.4-5.0); CALCIUM 8.6 mg/dL (8.5-10.1); CREATININE 2.1 mg/dL (0.6-1.0); PHOSPHORUS 3.5 mg/dL (2.6-4.7); POTASSIUM 4.2 mmol/L (3.5-5.1)
[2021-04-23 13:29] LABS: URINE BILIRUBIN NEGATIVE (Negative); URINE BLOOD TRACE (Negative); URINE CLARITY CLEAR; URINE COLOR YELLOW; URINE GLUCOSE-RANDOM* NEGATIVE (Negative); URINE KETONES NEGATIVE (Negative); URINE NITRITE-REFLEX NEGATIVE (Negative); URINE PROTEIN (DIPSTICK) 2+ (Negative); URINE UROBILINOGEN 0.2 E.U./dl (0.2-1.0)
[2021-04-23 13:30] LABS: URINE LEUKOCYTES-REFLEX 1+ (Negative)
[2021-04-23 13:39] LABS: HYALINE CASTS 0-3 Few /LPF (None Seen); SQUAMOUS 0-3 Few /LPF (0-3); URINE RBC 3-10 Few /HPF (NONE SEEN); URINE WBC-REFLEX 6-15 Few /HPF (0-5)
[2021-04-23 13:40] LABS: FINE GRANULAR CASTS 0-3 Few /LPF (None Seen); YEAST-REFLEX Present (None Seen)
[2021-04-23 19:34] VITALS: BP 133/82
--- NOTE | 2021-04-23 19:47 | NUR ---
PT ALERT AND ORIENTED X 3 THIS SHIFT. REQUIRES STEP BY STEP INSTRUCTIONS AND NEEDS FREQUENT REMINDERS TO STAY AT THE TASK AT HAND. CONCERNED B/C HE STATES SHE IS TALKING MORE IN HER SLEEP. HAS BEEN TURNED Q 2 HRS. DOPPLER TO LE'S REVEALED NO DVT. MARTINEZ CATHETER REMOVED PER ORDERS. UA OBTAINED. WAS INCONTINENT OF SMALL AMT OF URINE AT 1730. BLADDER SCAN WAS 82ML. HAD SEVERAL INCONTINENT EPISODES OF DIARRHEA TODAY. ABDOMINAL XRAY WAS ALSO DONE.
--- NOTE | 2021-04-24 02:59 | NUR ---
assumed care approx 0 evening 04/23. pt lying in bed with head of bed elevated. pt somewhat confused. pt with long stares at times to this program writer when answering questions. pt did take hs meds with no problems. pt incontinent of urine and assisted with changing and turning. bed alarm on and call light i reach. will continue to monitor.
[2021-04-24 06:03] LABS: ALBUMIN 2.3 g/dL (3.4-5.0); CALCIUM 8.9 mg/dL (8.5-10.1); CREATININE 2.1 mg/dL (0.6-1.0); PHOSPHORUS 3.7 mg/dL (2.5-4.9); POTASSIUM 3.8 mmol/L (3.5-5.1)
[2021-04-24 08:57] VITALS: BP 128/73
--- NOTE | 2021-04-24 14:59 | NUR ---
PT REMAINS ALERT AND ORIENTED X 3, HOWEVER HAS PERIODS OF INTERMITTENT CONFUSION. CONTINUES TO NEED STEP BY STEP SIMPLE INSTRUCTIONS TO COMPLETE TASKS AND OFTEN REQUIRES REDIRECTION WITH THOSE SIMPLE TASKS. DENIES PAIN OR DISCOMFORT.
[2021-04-24 20:04] VITALS: BP 123/93
--- NOTE | 2021-04-25 05:38 | NUR ---
ASSUMED CARE OF PT AT 1920 ON 04/24/21. PT IS A&O TO SELF & PLACE. DENIES PAIN. IS STABLE. IS UP WITH 1-2 ASSIST, GB, TO BSC. FALL PRECAUTIONS & HOURLY ROUNDING CONTINUED THIS SHIFT. LABS & VITALS REVIEWED. PT HAD HAS GENERALIZED EDEMA & GENERALIZED BRUISING. HAD BLOOD BLISTER ON LFA THAT TORE. THIS NURSE CLEANED WITH NS & APPLIED 3 STIRRI STRIPS. PT IS CURRENTLY SLEEPING. CALL LIGHT WITHIN REACH. WILL CONTINUE TO MONITOR.
[2021-04-25 07:22] VITALS: BP 138/79
[2021-04-25 07:22] LABS: ALBUMIN 2.6 g/dL (3.4-5.0); CREATININE 2.1 mg/dL (0.6-1.0); PHOSPHORUS 3.9 mg/dL (2.6-4.7); POTASSIUM 3.8 mmol/L (3.5-5.1)
[2021-04-25 17:12] VITALS: BP 138/79
[2021-04-25 17:25] LABS: HEMATOCRIT 44.2 % (37.0-47.0); HEMOGLOBIN 14.1 gm/dL (12.0-15.0); MCH 28.7 pg (26.0-34.0); MCHC 31.9 g/dL (28.0-37.0); MCV 89.9 fL (80.0-100.0); RBC 4.92 mil/uL (4.20-5.00); RDW 18.2 % (10.5-14.5); WBC 7.4 thou/uL (4.0-11.0)
--- NOTE | 2021-04-25 18:27 | NUR ---
PT A&OX3/4. PT WANTED OUT OF BED THEN WANTED BACK INTO BED. PT WAS OOB FROM 0815 TIL 1245 THEN BACK TO BED FROM 1245 TIL 1530. PT UP AT THIS TIME. PT C/O HAX1. TYLENOL GIVEN WITH STATED FAIR RELIEF. PT DOES NOT FOLLOW COMMANDS AND IS A OD ASSIST OF 2 TO GET OOB, AND TO AND FROM TOLILET. WILL CONTNIUE TO MONITOR.
[2021-04-25 19:51] VITALS: BP 130/77
--- NOTE | 2021-04-25 22:55 | NUR ---
PT VERY CONFUSED AND IMPULSIVE AT START OF SHIFT. SET OFF BED ALARM AND PT WAS SITTING ON THE SIDE OF THE BED. HAS SET OFF BED ALARM NUMEROUS TIMES SO FAR TONIGHT. PT AGITATED AND CRYING AT TIMES. YENNY ANNE NP NOTIFIED AND HALDOL GIVEN ORDERED. PT WITH PERIODS OF SLEEP BUT THEN WAKES UP YELLING AND CRYING. [employer] STAYING IN ROOM WITH PT AT THIS TIME. BED ALARM ON AT ALL TIMES. PULSE OX 98% AT 2230. PT DENIES PAIN OR DISCOMFORT. WILL CONTINUE TO MONITOR CLOSELY.
[2021-04-26 00:56] LABS: URINE BILIRUBIN NEGATIVE (Negative); URINE BLOOD NEGATIVE (Negative); URINE CLARITY CLEAR; URINE COLOR YELLOW; URINE GLUCOSE-RANDOM* NEGATIVE (Negative); URINE KETONES NEGATIVE (Negative); URINE NITRITE-REFLEX NEGATIVE (Negative); URINE PROTEIN (DIPSTICK) 2+ (Negative); URINE SPECIFIC GRAVITY >= 1.030 (1.005-1.035); URINE UROBILINOGEN 0.2 E.U./dl (0.2-1.0)
[2021-04-26 01:08] LABS: URINE LEUKOCYTES-REFLEX 1+ (Negative)
[2021-04-26 01:10] LABS: BACTERIA-REFLEX None Seen /HPF (None Seen); CASTS None Seen /LPF (None Seen); CRYSTALS None Seen /LPF (None Seen); MUCUS None Seen strn/LPF (None Seen); SQUAMOUS 0-3 Few /LPF (0-3); URINE RBC None Seen /HPF (NONE SEEN); URINE WBC-REFLEX 6-15 Few /HPF (0-5)
[2021-04-26 04:00] VITALS: BP 152/99
--- NOTE | 2021-04-26 04:24 | NUR ---
BLADDER SCAN 103 THIS MORNING. PT QUIET AT THIS TIME WITH FREELANCE PATTERNMAKER RUBBING HER BACK. DAUGHTER WENT HOME. ALTERNATING NURSE AND FREELANCE PATTERNMAKER SITTING WITH PT.
[2021-04-26 06:52] LABS: HEMATOCRIT 41.2 % (37.0-47.0); HEMOGLOBIN 13.7 gm/dL (12.0-15.0); MCH 29.2 pg (26.0-34.0); MCHC 33.3 g/dL (28.0-37.0); MCV 87.6 fL (80.0-100.0); RBC 4.7 mil/uL (4.20-5.00); RDW 16.4 % (10.5-14.5); WBC 8.8 thou/uL (4.0-11.0)
[2021-04-26 07:43] LABS: ALBUMIN 2.6 g/dL (3.4-5.0); CALCIUM 9.4 mg/dL (8.5-10.1); CREATININE 2.3 mg/dL (0.6-1.0); PHOSPHORUS 4.1 mg/dL (2.5-4.9); POTASSIUM 4.1 mmol/L (3.5-5.1)
[2021-04-26 08:00] VITALS: BP 125/97
[2021-04-26 09:58] LABS: BE(vivo) -1.5 mmol/L (-2 to +3); HCO3 19.6 mmol/L (22.0-26.0); PO2 82.6 mmHg (80.0-100.0); pH 7.519 (7.360-7.450); sO2 97.2 % (92.0-98.0)
[2021-04-26 10:02] LABS: PCO2 24.6 mmHg (35.0-45.0)
[2021-04-26 14:04] LABS: ALBUMIN 2.6 g/dL (3.4-5.0); DIRECT BILIRUBIN 0.8 mg/dL (<0.1-0.2); TOTAL BILIRUBIN 1.4 mg/dL (0.2-1.0); TOTAL PROTEIN 4.8 g/dL (6.4-8.2)
--- NOTE | 2021-04-26 14:20 | NUR ---
Cont therapy. BPCI. Re team and has used [facility] in the past.
[2021-04-26 19:05] VITALS: BP 133/79
--- NOTE | 2021-04-27 00:09 | NUR ---
ASSUMED CARE OF PT AT 1910 ON 04/25/21. PT HAS BEEN SLEEPING SINCE THE START OF THE SHIFT. DENIES PAIN. IS STABLE. REFUSED TO TAKE MEDS OR EAT ANYTHING. PT NOT RESPONDING TO QUESTIONS. HOWEVER, DENIED PAIN FOR THE HOUSE SUP. IS TURNED Q2H. IS INCONTIENT TO B&B. IS NORMALLY UP WITH ASSIST OF 1, GB, TO BSC. HAS NOT ATTEMPTED TO GET UP. REMAINS ASLEEP WHEN TURNING & CLEANING WITH GROANS. LABS & VITALS REVIEWED. WILL CONTINUE TO MONITOR. CALL LIGHT WITHIN REACH.
[2021-04-27 07:21] VITALS: BP 125/83
[2021-04-27 07:45] LABS: ALBUMIN 2.7 g/dL (3.4-5.0); CALCIUM 9.1 mg/dL (8.5-10.1); CREATININE 2.7 mg/dL (0.6-1.0); PHOSPHORUS 4.8 mg/dL (2.6-4.7); POTASSIUM 4.3 mmol/L (3.5-5.1)
[2021-04-27 09:45] VITALS: BP 125/83
[2021-04-27 10:01] LABS: ABSOLUTE NEUTROPHILS 6.6 thou/uL (1.4-8.2); BASOPHILS 0.6 % (0.0-2.0); EOSINOPHILS 0.7 % (0.0-3.0); HEMATOCRIT 40.1 % (37.0-47.0); HEMOGLOBIN 13.2 gm/dL (12.0-15.0); LYMPHOCYTES 7.9 % (24.0-44.0); MCH 29.3 pg (26.0-34.0); MCHC 32.9 g/dL (28.0-37.0); MCV 89.1 fL (80.0-100.0); MONOCYTES 15.1 % (1.0-8.0); PLATELET COUNT 288 thou/uL (150-400); POLYS 75.7 % (36.0-66.0); RDW 18.1 % (10.5-14.5); WBC 8.7 thou/uL (4.0-11.0)
[2021-04-27 10:11] LABS: DIRECT BILIRUBIN 0.8 mg/dL (<0.1-0.2); TOTAL BILIRUBIN 1.8 mg/dL (0.2-1.0); TOTAL PROTEIN 5.3 g/dL (6.4-8.2)
[2021-04-27] MEDS ORDERED: LACTULOSE20 GM/30 M PO (10:15)
[2021-04-27] MEDS ORDERED: NYAMYC15 GM TOP (10:15)
--- NOTE | 2021-04-27 10:55 | NUR ---
Cm notified by COOK HELPER MEAT that she had change in medical condition and going to be moved to acute hospital. She is on BPCI, had [facility] in the past and going to speak with her per spouse request.
--- NOTE | 2021-04-27 12:06 | NUR ---
WOUND CONSULT; THERE IS A SMALL STAGE 2 PRESSURE INJURY PRESENT. NO S/S OF INFECTION. THE LOW AIRLOSS PUMP IS NOT FUNCTIONING DUE TO A FAULTY OUTLET. DISCUSSED WITH TH RN TO SWITCH OUT THE BED. RECOMMENDATIONS; -APPLY BARRIER CREAM BID.
[2021-04-27 13:13] LABS: BE(vivo) -3.4 mmol/L (-2 to +3); HCO3 17.7 mmol/L (22.0-26.0); PO2 68.7 mmHg (80.0-100.0); pH 7.501 (7.360-7.450); sO2 95.5 % (92.0-98.0)
[2021-04-27 13:14] LABS: PCO2 23.2 mmHg (35.0-45.0)
--- NOTE | 2021-04-27 15:34 | NUR ---
AT 0700, HS NURSE REPORTED OFF THAT PT HAS BEEN DECLINING FOR THE PAST 2 NIGHTS, AMMONIA LEVEL IS HIGH ON 04/26/20. ON 8AM ASSESSMENT, PT WILL OPEN HER EYES SLOWLY BUT NOT ANSWER ANY QUESTIONS. VITALS WERE STABLE. PTS BREATHING WAS VERY IRREGULAR WITH ABDOMINAL BREATHING ESPECIALLY WHEN TURNING PT TO CLEAN UP HER INCONTINENT URINE AND STOOL. UNABLE TO GIVE ANY PO MEDS D/T PTS INABILIY TO WAKE UP. AGUSTINA SEGAL SAW PT AND STATED SHE NEEDED TO TRANSFER TO ACUTE FLOOR. NURSE CALLED ICU AND GAVE MARYBETH MOORE REPORT. NURSE AND SHELTER ADVOCATE GOT PT READY TO TRANSFER PT TO ICU, RN RECEIVED CALL FROM LAB THAT CRITICAL VALUE OF PC02 OF 23.2 AT 1320. RN TOLD MARYBETH MOORE IN ICU ABOUT THE CRITICAL WHEN PT WAS RECEIVED IN ICU.
== END 2021-04-27 13:26 | disposition short-term general hospital (02) | DRG 70 ==
PROVIDERS: Hospitalist; Nurse Practitioner; Nurse Practitioner Family; ADMIT Physical Medicine & Rehabilitation; ATTEND Physical Medicine & Rehabilitation
DX: G93.41 Metabolic encephalopathy (principal); E43 Unspecified severe protein-calorie malnutrition; N17.9 Acute kidney failure, unspecified; I13.0 Hypertensive heart and chronic kidney disease with heart failure and stage 1 through stage 4 chronic kidney disease, or unspecified chronic kidney disease; I42.9 Cardiomyopathy, unspecified; G72.81 Critical illness myopathy; K80.00 Calculus of gallbladder with acute cholecystitis without obstruction; R53.81 Other malaise; I50.9 Heart failure, unspecified; E11.22 Type 2 diabetes mellitus with diabetic chronic kidney disease; I49.5 Sick sinus syndrome; N18.30 Chronic kidney disease, stage 3 unspecified; B95.2 Enterococcus as the cause of diseases classified elsewhere; I48.0 Paroxysmal atrial fibrillation; D69.6 Thrombocytopenia, unspecified; R33.9 Retention of urine, unspecified; N30.90 Cystitis, unspecified without hematuria; T42.6X5A Adverse effect of other antiepileptic and sedative-hypnotic drugs, initial encounter; E11.42 Type 2 diabetes mellitus with diabetic polyneuropathy; K58.1 Irritable bowel syndrome with constipation; R41.0 Disorientation, unspecified; E80.6 Other disorders of bilirubin metabolism; Z95.0 Presence of cardiac pacemaker; Z88.6 Allergy status to analgesic agent; Z79.4 Long term (current) use of insulin; Z90.710 Acquired absence of both cervix and uterus; Z87.81 Personal history of (healed) traumatic fracture; Z68.37 Body mass index [BMI] 37.0-37.9, adult; Y92.89 Other specified places as the place of occurrence of the external cause
CPT/HCPCS: 10112

== ENCOUNTER 2021-04-27 13:21 | Inpatient (IN) | payer OTHER ==
[~2021-04-27] VITALS: Ht 167.6 cm; Wt 92.3 kg
[2021-04-27] VITALS (16 sets, daily range): BP systolic 122–144; BP diastolic 56–123
--- NOTE | ~2021-04-27 | EEG ---
[facility] [place] [address] ELECTROENCEPHALOGRAM Name: GEORGI KAUFMAN V Room #: 244-P ADM IN M.R.#: [id number] Admission: 04/27/21 Attend Phys: Jeromy Yanez MD Discharge: Date of : 46 Report #: [id number] THIS REPORT FOR: //name// This patient is being evaluated for altered mental status. EEG was done by placing the electrodes by standard 10-20 system of electrode placement. Both referential and sequential montages were used for recording. Background activity in this patient's EEG is poorly formed and is intermixed with a lot of artifact. It appeared to be about 5 Hz and 10 microvolt. Photic stimulation is unremarkable. This patient's EEG become even further slowed that is associated with some more drowsiness. IMPRESSION: This is an abnormal EEG because it is disorganized and poorly formed. That is a nonspecific abnormality which can occur with encephalopathy. However, the finding is nonspecific and can occur with multiple other etiologies like dementia, effect of psychotropic medication, etc. Clinical correlation is recommended. By: [id number] Mayco Cheatham MD /nt
[~2021-04-27 13:21] MED LIST changes: +LACTULOSE20 GM/30 M PO; +NYAMYC15 GM TOP
--- NOTE | 2021-04-27 16:51 | NUR ---
1340-RECEIVED PT VIA BED FROM 507 TO 244. NOT RESPONSIVE TO STERNAL RUB,NOT W/DRAWING W PAINFUL STIM X4 EXTREM'S. WILL MOAN AT TIMES. MARTINEZ, NGT PLACED W/O DIFF. PT THRASHING HEAD BACK & FORTH,DOES ATTEMPT TO REACH NGT,PLACED IN WRIST RESTRAINTS. PCXR DONE. IN TO SEE.--VW LONG D/W EARLIER,ANSWERING ?'S,EXPLAINING WHY PT WAS BROUGHT DOWN TO ICU. SAT AT BEDSIDE ALL pNOON, JUST LEFT FOR THE NIGHT.NO FURTHER ?'S OR CONCERNS VERBALIZED. PT REMAINS EXTREMELY SOMNOLENT. UPDATE TO .--VW
[2021-04-28] VITALS (29 sets, daily range): BP systolic 109–153; BP diastolic 58–118
[2021-04-28 06:39] LABS: ABSOLUTE NEUTROPHILS 7.1 thou/uL (1.4-8.2); BASOPHILS 1.3 % (0.0-2.0); EOSINOPHILS 1.3 % (0.0-3.0); HEMATOCRIT 40.9 % (37.0-47.0); HEMOGLOBIN 13.1 gm/dL (12.0-15.0); LYMPHOCYTES 6.6 % (24.0-44.0); MCH 28.9 pg (26.0-34.0); MCV 90.2 fL (80.0-100.0); MONOCYTES 12.8 % (1.0-8.0); PLATELET COUNT 302 thou/uL (150-400); RBC 4.54 mil/uL (4.20-5.00); RDW 17.6 % (10.5-14.5); WBC 9.1 thou/uL (4.0-11.0)
[2021-04-28 06:47] LABS: ALBUMIN 2.6 g/dL (3.4-5.0); CALCIUM 9.1 mg/dL (8.5-10.1); CREATININE 2.8 mg/dL (0.6-1.0); MAGNESIUM 2.1 mg/dL (1.8-2.4); PHOSPHORUS 5.4 mg/dL (2.6-4.7); POTASSIUM 4.3 mmol/L (3.5-5.1)
--- NOTE | 2021-04-28 07:30 | NUR ---
PT BEEN RESTING IN BED.PT MORE RESPONSIVE THE NIGHT GOES DOWN.OPEN EYES SPONTANEOUSLY TO VOICE COMMANDS.PT DOES NOT FOLLOW COMMANDS.PT W/GENERALIZED EDEMA,RIGHT ARM WEEPING.JUAN DD,850CC OF YELLOW URINE.REMAINED ON RA.VSS.ASSESSMENT COMPLETED DOCUMENTED.
[2021-04-28 10:09] LABS: ALBUMIN 2.6 g/dL (3.4-5.0); TOTAL BILIRUBIN 1.9 mg/dL (0.2-1.0); TOTAL PROTEIN 5.2 g/dL (6.4-8.2)
--- NOTE | 2021-04-28 12:51 | NUR ---
71-year-old female, transferred down to ICU from acute rehab related to changes in medical condition. Patient was noted to have hallucination, agitation 04/25/21, PRN meds given as [id number]. Next morning patient was noted to be somnolent. Therapy was held. CT head was obtained with no evidence of acute intracranial hemorrhage or acute other acute intracranial abnormalities. Labs were obtained which revealed increased ammonia level and abnormal renal function. Nephrology was reconsulted. Patient was started on IV Lasix twice daily. Yesterday patient was noted to to have no improvement, continues to remain obtunded, opens eyes does not follow any command. Prior to hospital she was living at home with her spouse latricia # [phone] in a house. 3 steps to enter. Has cane, and walker. Not needed to use dme. Has had [facility] in the past. Will cont. following as needed. Discussed during los with the attending physician and during unite rounds with pulmonary MD.
--- NOTE | 2021-04-28 13:21 | NUR ---
SPOKE WITH RADIOLOGIST, CENTRAL LINE LEADS UP TO THE SVC AND IS GOOD TO USE. COMMUNICATING THIS TO IMAGING STAFF, RN CURRENTLY AT [facility] FOR THIS PATIENT CONFIRMING LINES AVAILABLE FOR USE
--- NOTE | 2021-04-28 13:43 | NUR ---
PT IS PROGRESSING TOWARDS DISCHARGE AT THIS TIME, PT WAS SEEN BY GI TEAM THIS MORNING, THE PLAN IS TO GET BETTER IMAGING OF THE HEPATOBILIARY SYSTEM, HEPATOBILIARY PIPIDA WAS ORDERED AND RN IS CURRENTLY AT NUCLEAR MEDICINE AT THIS TIME WITH THE PT WHILST THE IMAGING IS BEING FINISHED. INTERVENTIONAL RADIOLOGY CONTACTED THIS RN REGARDING QUESTIONS FOR THIS PATIENT TO DISCUSS TO , PER AND IR TEAM, PT WILL NEED TO BE OFF OF XARELTO FOR THREE DAYS UNLESS MEDICALLY EMERGENT SITUATION ARISES, PT IS SCHEDULED TO RECEIVE A CHOLEDRAIN ON 04/30 AT THIS TIME. LASTLY, RN SPOKE WITH OF THE PATIENT MILES KAUFMAN; WHO EXPRESSED CONCERN ABOUT LACK OF COMMUNICATION FROM THE TEAM TO UPDATE THE REGARDING WHAT IS CURRENTLY HAPPENING TO THE PATIENT. RN WAS ABLE TO PROVIDE CURRENT UPDATE BEST POSSIBLE, RN WILL NOTIFY OTHER MEMBERS OF THE TEAM TO DO THE SAME. IS CURRENTLY IN THE PATIENT'S ROOM AWAITING FOR 'S ARRIVAL. HAS TWO DAUGHTERS AND A SON, ONE OF THE DAUGHTER WORKS A COORDINATOR AT A [employer], AND THE OTHER WORKS AN EMT, AND WOUD LIKE TO INVOLVE THEM FOR MEDICAL INFORMATION WHEN POSSIBLE.
[2021-04-28 15:29] LABS: APTT 40.2 Seconds (24.5-32.8); INR 1.8; PROTIME 19.1 Seconds (10.5-12.1)
--- NOTE | 2021-04-28 15:43 | NUR ---
PICC INSERTION. LEFT ARM CLEANED WITH CHLOROPREP, 1% LIDOCAINE USED FOR LOCAL. L CEPHALIC VEIN ACCESSED. UNABLE TO THREAD PICC LINE IN L CEPHALIC. ARM RECLEANED WITH CHLOROPREP. L BASILIC VEIN ACCESSED. PICC LINE THREADED WITHOUT DIFFICULTY. PICC TIP IN SVC, READ BY DR. WAHL. PICC GOOD TO USE.
[2021-04-29] VITALS (10 sets, daily range): BP systolic 130–157; BP diastolic 55–78
[2021-04-29 05:15] LABS: HEMATOCRIT 41.9 % (37.0-47.0); HEMOGLOBIN 13.4 gm/dL (12.0-15.0); MCH 28.9 pg (26.0-34.0); MCHC 32.1 g/dL (28.0-37.0); RBC 4.66 mil/uL (4.20-5.00); RDW 17.7 % (10.5-14.5); WBC 9.5 thou/uL (4.0-11.0)
[2021-04-29 05:37] LABS: ALBUMIN 2.4 g/dL (3.4-5.0); CREATININE 2.6 mg/dL (0.6-1.0); MAGNESIUM 1.9 mg/dL (1.8-2.4); POTASSIUM 3.6 mmol/L (3.5-5.1)
--- NOTE | 2021-04-29 12:31 | NUR ---
PT IS NOT PROGRESSING TOWARDS DISCHARGE AT THIS TIME, PT OVERALL PRESENTATION IS ABOUT THE SAME, MOANS/GROANS WHEN STIMULATED AND WITHDRAWS FROM PAIN, SAYS "OW" BUT NOTHING MORE THAN THAT, PT WOULD MAKE EYE CONTACT HERE AND THERE BUT DOES NOT FOLLOW COMMANDS, BLIKS TO THREATFUL STIMULI, AMMONIA LEVEL IS STILL ELEVATED, MADE AWARE OF PT'S CURRENT MEDICAL PRESENTATION. PT DOES APPEAR TO BE IN SOMEWHAT OF A DISCOMFORT, RN NOTIFIED HOSPITALIST TO RECEIVE PAIN MEDICATION/BLOOD GAS, CURRENTLY AWAITING. WANTED TO KNOW WHAT TIME PT WOULD BE GOING INTO SURGERY TOMORROW, RN CONTACTED CV, PER CV STAFF MEMBER, IT IS UNDECIDED AT THIS
[2021-04-29 16:46] LABS: BE(vivo) 0.2 mmol/L (-2 to +3); HCO3 21.3 mmol/L (22.0-26.0); PCO2 25.8 mmHg (35.0-45.0); PO2 75.4 mmHg (80.0-100.0); pH 7.534 (7.360-7.450); sO2 96.7 % (92.0-98.0)
[2021-04-30] VITALS (22 sets, daily range): BP systolic 127–147; BP diastolic 63–93
--- NOTE | 2021-04-30 05:02 | NUR ---
assumed pt care at 1900, no change in pts condition, responds to verbal stimuli, moans with tactile stimulation or movement, does not follow commands, pupils equal and reactive, opens eyes on verbal stimuli but will not track, remains on room air, o2sats stable, vpaced on tele, bp stable, not progressing, ng tube to lis, remains npo, not progressing wellk towards goals at this time
[2021-04-30 05:03] LABS: ALBUMIN 2.4 g/dL (3.4-5.0); CALCIUM 8.8 mg/dL (8.5-10.1); CREATININE 2.4 mg/dL (0.6-1.0); PHOSPHORUS 3.7 mg/dL (2.5-4.9); POTASSIUM 3.5 mmol/L (3.5-5.1)
--- NOTE | 2021-04-30 09:25 | NUR ---
spouse- Raghavendra Guerrier present. updated on pt care. discussed choley drain placement today. he stated that he would sign the consent after he spoke with the doctor (performing procedure). he stated that her blue almaz purse with valuable identification cards is missing. He looked for it in the truck and at home. he continued, it is not there. RN called staff on , another pt is in room and the purse is not in the #506. then he offered that pt was in another room- #512. rn called [address] [place] [address]. Yanez present to see pt, spoke with . discussed jake eyes deviating to left and intermittent rapid breathing.
--- NOTE | 2021-04-30 11:20 | NUR ---
to radiology per icu bed on nurse monitoring for ct head, then to interventional radiology for choley drain.
--- NOTE | 2021-04-30 14:03 | NUR ---
Cm reviewed chart and spoke with care team. Pt's care discused during icu rounds this day. Care team were concerned about worsening mental status. pt had ct of head which was unremarkable per care team. It was indicated that sedating meds are to be held. Care team indicated that cholecystomy drain placement is scheduled by IR tomorrow. LFT's in AM. Will determine future needs as pt's plan of care progresses whether return to 5n would be appropriate or other options. Cm following. No weekend dc anticpated.
--- NOTE | 2021-04-30 14:15 | NUR ---
Dr. Banegas present to see pt. requested drainage be to suction- suction bulb. Dr. Sanchez present to see pt.
--- NOTE | 2021-04-30 14:30 | NUR ---
jaya muse felicity with all belongings, cell phone and personal clothing all sent home with her .
[2021-05-01] VITALS (24 sets, daily range): BP systolic 109–149; BP diastolic 51–87
--- NOTE | 2021-05-01 03:47 | NUR ---
PT RESTED THROUGH THE NOC WITHOUT SIGNIFICANT CHANGES.PT OPENS EYES UPON VERBAL AND PAINFUL STIMULI.PT DOES NOT FOLLOW COMMANDS.MOANS AND GROANS DURING CARE.REMAINS ON O2 AT 2LITERS PNC.NG TUBE TO LIS,NO OUTPUT SO FAR THIS SHIFT FROM NG TUBE.MARTINEZ DD,ADEQUATE URINE.ASSESSMENT COMPLETED DOCUMENTED.
[2021-05-01 05:36] LABS: HEMATOCRIT 38.9 % (37.0-47.0); HEMOGLOBIN 12.8 gm/dL (12.0-15.0); MCH 29.6 pg (26.0-34.0); MCHC 32.8 g/dL (28.0-37.0); MCV 90.2 fL (80.0-100.0); RBC 4.32 mil/uL (4.20-5.00); RDW 17.4 % (10.5-14.5); WBC 10.6 thou/uL (4.0-11.0)
[2021-05-01 05:43] LABS: INR 1.46; PROTIME 15.6 Seconds (10.5-12.1)
[2021-05-01 05:54] LABS: ALBUMIN 2.1 g/dL (3.4-5.0); CALCIUM 8.6 mg/dL (8.5-10.1); CREATININE 2.3 mg/dL (0.6-1.0); DIRECT BILIRUBIN 1.1 mg/dL (<0.1-0.2); POTASSIUM 3.3 mmol/L (3.5-5.1); TOTAL BILIRUBIN 2.2 mg/dL (0.2-1.0); TOTAL PROTEIN 4.7 g/dL (6.4-8.2)
[2021-05-02] VITALS (23 sets, daily range): BP systolic 101–148; BP diastolic 46–102
[2021-05-02 04:57] LABS: RDW 17.9 % (10.5-14.5)
[2021-05-02 04:59] LABS: BASOPHILS 0.3 % (0.0-2.0); EOSINOPHILS 0.2 % (0.0-3.0); HEMATOCRIT 39.7 % (37.0-47.0); HEMOGLOBIN 13.1 gm/dL (12.0-15.0); LYMPHOCYTES 4.9 % (24.0-44.0); MCH 29.6 pg (26.0-34.0); MCHC 32.9 g/dL (28.0-37.0); MCV 89.9 fL (80.0-100.0); MONOCYTES 12.7 % (1.0-8.0); PLATELET COUNT 231 thou/uL (150-400); POLYS 81.9 % (36.0-66.0); RBC 4.42 mil/uL (4.20-5.00)
[2021-05-02 05:07] LABS: ALBUMIN 2.1 g/dL (3.4-5.0); CALCIUM 8.3 mg/dL (8.5-10.1); CREATININE 2.2 mg/dL (0.6-1.0); MAGNESIUM 1.4 mg/dL (1.8-2.4); POTASSIUM 3.4 mmol/L (3.5-5.1); TOTAL BILIRUBIN 2.4 mg/dL (0.2-1.0); TOTAL PROTEIN 4.7 g/dL (6.4-8.2)
--- NOTE | 2021-05-02 06:42 | NUR ---
ASSUMED CARE OF PT AT 1900. PT AMMONIA LAB CAME BACK 137. CONTACED [employer]NA[employer] TO INFORM AND ORDERS GIVEN. FMS PLACED DURING THIS SHIFT. MENTAL STATUS DID NOT IMPROVE DURING THIS SHIFT. WILL FOLLOW POC
--- NOTE | 2021-05-02 10:30 | NUR ---
called, inquired on pt status. updated on pt being nonverbal with exception of stating her name one time yesterday. moving all extremities however not to command. yelling out intermittently, room air, choley drain intact and draining fluid from gallbladder appropiately. very minimal progress at this time.
[2021-05-03] VITALS (24 sets, daily range): BP systolic 109–148; BP diastolic 73–96
[2021-05-03 06:54] LABS: ABSOLUTE NEUTROPHILS 8.5 thou/uL (1.4-8.2); BASOPHILS 0.4 % (0.0-2.0); EOSINOPHILS 0.7 % (0.0-3.0); HEMATOCRIT 41.5 % (37.0-47.0); HEMOGLOBIN 13.7 gm/dL (12.0-15.0); LYMPHOCYTES 4.9 % (24.0-44.0); MCH 29.6 pg (26.0-34.0); MCHC 32.9 g/dL (28.0-37.0); MCV 89.9 fL (80.0-100.0); PLATELET COUNT 243 thou/uL (150-400); RBC 4.62 mil/uL (4.20-5.00); RDW 18.3 % (10.5-14.5); WBC 10.9 thou/uL (4.0-11.0)
[2021-05-03 07:15] LABS: ALBUMIN 2.3 g/dL (3.4-5.0); CALCIUM 8.9 mg/dL (8.5-10.1); CREATININE 2.3 mg/dL (0.6-1.0); MAGNESIUM 1.8 mg/dL (1.8-2.4); PHOSPHORUS 3.7 mg/dL (2.5-4.9); POTASSIUM 3.9 mmol/L (3.5-5.1); TOTAL BILIRUBIN 2.7 mg/dL (0.2-1.0); TOTAL PROTEIN 5.2 g/dL (6.4-8.2)
--- NOTE | 2021-05-03 07:42 | NUR ---
Pt. able to state name only otherwise she hollers loud. POULTRY PICKING MACHINE TENDER called since current pain med order not helping. Fentanyl has been increased to 25 mcg which helped some but did not last long. Pt. rested intermittently. Repositioned and complete bed bath given to keep her comfortable.Tolerating room air well. Right NG to LIS. Right scott drain flushed with 10 ml NS. Emptied 80 ml of dark green thick dge. FMS with liquid light yellow stool. Cleaned for leakage and z guard applied to buttocks.
[2021-05-03 08:33] LABS: ANISOCYTOSIS 1+
--- NOTE | 2021-05-03 15:22 | NUR ---
Discussed during los via phone call with the attending physician. Right scott drain. BPCI. Cm visited with her spouse latricia, he cont. to stated "she doesn't have sever dementia and i keep telling everyone, she walked in there and was driving, paying bills and independent before all of this so you tell me" per latricia. Bedside nurse also provided him with updates today. He visited her often. 5N following
[2021-05-04] VITALS (18 sets, daily range): BP systolic 116–148; BP diastolic 76–100
--- NOTE | 2021-05-04 10:06 | NUR ---
recommend dc ivf once tube feeds tolerated. Consider electrolyte protocol if pt requires KCL
--- NOTE | 2021-05-04 13:37 | NUR ---
pT RETURNED FROM c/t SCAN WITHOUT INCIDENT. pT INCONTINENT OF STOOL AROUND FMS. INCONTINENT CARE PROVIDED. PT REPOSITIONED
[2021-05-05] VITALS (19 sets, daily range): BP systolic 113–151; BP diastolic 37–92
[2021-05-05 06:10] LABS: HEMATOCRIT 41.7 % (37.0-47.0); HEMOGLOBIN 13.4 gm/dL (12.0-15.0); MCH 29.2 pg (26.0-34.0); MCHC 32.2 g/dL (28.0-37.0); MCV 90.6 fL (80.0-100.0); RBC 4.6 mil/uL (4.20-5.00); RDW 19.4 % (10.5-14.5); WBC 11.7 thou/uL (4.0-11.0)
[2021-05-05 06:20] LABS: ALBUMIN 2.1 g/dL (3.4-5.0); CALCIUM 8.7 mg/dL (8.5-10.1); CREATININE 2.5 mg/dL (0.6-1.0); PHOSPHORUS 3.3 mg/dL (2.5-4.9); POTASSIUM 4.1 mmol/L (3.5-5.1)
[2021-05-05 10:47] LABS: ALBUMIN 2.1 g/dL (3.4-5.0); DIRECT BILIRUBIN 1.5 mg/dL (<0.1-0.2); TOTAL BILIRUBIN 2.4 mg/dL (0.2-1.0); TOTAL PROTEIN 4.7 g/dL (6.4-8.2)
--- NOTE | 2021-05-05 11:00 | NUR ---
Discussed during los with the attending physician, that she possible going to move out of the ICU when a bed is available, and then need to look into skilled therapy. She will have scott drain when she is discharged from hospital and might have to come back when she is more stable to have her gallbladder removed. Cm called her spouse latricia to talk about next steps when she is medically stable for dc, tried to educate on skilled rehab. Wanted him and their daughters to be able to have time to look at what facility cm could send referrals to when get closer to dc. They [place] in [place] of [place], [place]. Latricia stated in a loud voice so your going to just get her out of there when i do not have a prognosis or even what is going one with her. She not ready for dc per latricia. CM re-education that not dc now, just wanting to provide him with resource to start looking at for when time comes to dc. CM passed on information to spouse that would ask the attending physician to call him. Cm passed on information to the attending physician. Will cont following as needed for dc needs.
[2021-05-06 04:35] VITALS: BP 171/83
--- NOTE | 2021-05-06 04:41 | NUR ---
RECEIVED PATIEN TFROM THE ICU AROUND 2330H.ASSESSMENT DONE CHARTED.MEDS GIVEN PER JUN.TURNING DONE.ALL NEEDS ATTENDED.TO CONTINOUSLY MONITOR.
[2021-05-06 06:33] LABS: HEMATOCRIT 42.6 % (37.0-47.0); HEMOGLOBIN 13.5 gm/dL (12.0-15.0); MCH 28.9 pg (26.0-34.0); MCHC 31.7 g/dL (28.0-37.0); MCV 91.2 fL (80.0-100.0); RBC 4.67 mil/uL (4.20-5.00); RDW 18.8 % (10.5-14.5); WBC 11.5 thou/uL (4.0-11.0)
[2021-05-06 06:52] LABS: CALCIUM 8.6 mg/dL (8.5-10.1); CREATININE 2.6 mg/dL (0.6-1.0); PHOSPHORUS 3.1 mg/dL (2.6-4.7); POTASSIUM 3.5 mmol/L (3.5-5.1)
[2021-05-06 07:55] VITALS: BP 144/85
[2021-05-06 11:41] LABS: ALBUMIN 2.1 g/dL (3.4-5.0); DIRECT BILIRUBIN 1.1 mg/dL (<0.1-0.2); TOTAL BILIRUBIN 3.5 mg/dL (0.2-1.0)
[2021-05-06 11:55] VITALS: BP 149/89
--- NOTE | 2021-05-06 12:18 | NUR ---
CM SPOKE TO PTS AT BEDSIDE THIS DAY. CM INTRODUCED SNF SERVICES. GAVE PT LIST OF FACILITIES. PTS REPORTS HE DIDNT WANT ANYTHING IN [facility] HE FEELS WONT GET THE BEST THE CARE. INQUIRED ABOUT [facility] AND ANSWERED HIS QUESTIONS. THIS CM CALLED [facility] AND ASKED TO VISIT PT AND TO FURTHER DISCUSS SNF PROGRAM. VOICED HE WOULD APPRECIATE THE VISIT. HE ALSO VOICED PT WAS DRIVING, PAYING BILLS, AND AURGUING WITH HIM PRIOR TO ADMISSION. REPORT THEIR DAUGHTER IS A DIRECTOR FOR [employer] AND HE VOICED HE FEELS HE KNOWS ALOT ABOUT FACILITIES AND REASON WHY HE DOESNT WANT TO CHOOSE A FACILITY IN [facility]. PT INTIALLY DID NOT WANT TO DISCUSS DISCHARGE PLANNING HE VOICED HE WAS WORRIED ABOUT PT TODAY. CM EXPLAINED BENEFIT OF THEIR CHOICE IN FACILITY AND WITH COVID SURG BEDS MAY BE NOT BE AVAILABLE TO DISCHARGE PLANNING NECESSARY. CM WILL CONTINUE TO FOLLOW FOR PT AND CHOICE FOR SNF ONCE PT IS MEDICALLY STABLE TO DC.
[2021-05-06 16:00] VITALS: BP 137/91
[2021-05-06 19:58] VITALS: BP 154/110
[2021-05-07 05:35] LABS: HEMATOCRIT 41.5 % (37.0-47.0); HEMOGLOBIN 13.4 gm/dL (12.0-15.0); MCH 29.4 pg (26.0-34.0); MCHC 32.3 g/dL (28.0-37.0); RBC 4.56 mil/uL (4.20-5.00); RDW 19.2 % (10.5-14.5); WBC 11.1 thou/uL (4.0-11.0)
[2021-05-07 06:02] VITALS: BP 129/84
[2021-05-07 06:24] LABS: CALCIUM 8.9 mg/dL (8.5-10.1); CREATININE 2.5 mg/dL (0.6-1.0); PHOSPHORUS 3.1 mg/dL (2.5-4.9); TOTAL PROTEIN 4.8 g/dL (6.4-8.2)
--- NOTE | 2021-05-07 07:29 | NUR ---
Pt. rested quietly at intervals during the night when checked on during frequent rounds. She is difficulty to understand as she like mummbles. When asking patient questions she will not answer, but stare at you. Fecal management system was changed as the previous system was leaking. Pt. turned and repositioned. Bed alarm is on.
[2021-05-07 09:41] VITALS: BP 139/87
[2021-05-07 13:15] VITALS: BP 114/79
--- NOTE | 2021-05-07 15:31 | NUR ---
CM SPOKE TO PTS THIS DAY AT BEDSIDE. ASKED FOR CHOICES FOR SNF REFERRALS TO PREPARE FOR DC. PT RESTING WITH EYES CLOSED. PTS REPORTS HE PREFERS TO SPEAK WITH [facility] FIRST BEFORE GOING ANY FURTHER. YESTERDAY [facility] CM REQUESTED [facility] TO VISIT PT. ONCE INS AND PT ACCEPTED [facility] WILL MEET WITH PT. INFORMED PT AND AGAIN ASKED FOR ANOTHER CHOICE. PTS REPORTS HE WAS TOLD PT WOULD NOT GO ANYTWHERE THIS WEEKEND AND JUST ASSUME WAIT UNTIL MONDAY PT IS SICK AND HE IS WORRIED ABOUT HER. SHOULD PT BE MEDICALLY STABLE TO DC OVER THE WEEKEND PLEASE CALL [facility] AT [phone] AND FAX ORDERS TO [phone]. SHOULD PT TRANSFER VIA W/C [facility] WILL SET UP. IF PT NEEDS A STRETCHER PLEASE FILL OUT AN AMBULANCE FOR AND CALL TO ARRANGE. NO FURTHER CM NEEDS AT THIS TIME.
[2021-05-07 16:00] VITALS: BP 120/74
--- NOTE | 2021-05-07 16:22 | NUR ---
[facility] CAN ACCEPT ONCE PT MEDICALLY STABLE TO DC.
[2021-05-07 20:00] VITALS: BP 113/63
[2021-05-07 20:08] VITALS: BP 113/63
--- NOTE | 2021-05-08 02:16 | NUR ---
ASSESSMENTS CHARTED, MEDS CHARTED GIVEN. PATIENT WAXES AND WAINS BETWEEN BEING ALERT ABLE TO ANSWER SOME QUESTIONS, TO BEING UNRESPONSIVE. PATIENT PLAN OF CARE IS TO TRANSFER TO [facility].
[2021-05-08 03:36] LABS: CALCIUM 8.6 mg/dL (8.5-10.1); CREATININE 2.6 mg/dL (0.6-1.0); POTASSIUM 3.4 mmol/L (3.5-5.1)
[2021-05-08 03:56] VITALS: BP 121/76
[2021-05-08 07:50] VITALS: BP 113/71
[2021-05-08 11:36] VITALS: BP 108/74
[2021-05-08 15:33] VITALS: BP 117/78
[2021-05-08 20:00] VITALS: BP 105/71
--- NOTE | 2021-05-09 02:36 | NUR ---
ASSESSMENTS CHARTED, MEDS CHARTED GIVEN. PATIENT RESTING IN BED DURING SHIFT. PATIENT ONLY ATE HER PUDDING FROM HER DINNER TRAY. PATIENT WOULD FALL ASLEEP BETWEEN BITES AND HAVE TO BE PROMPTED TO KEEP EATING. PATIENT WOULD CRY OUT IN HER SLEEP DURING SHIFT. WHEN ASKED IF SHE WAS IN PAIN SHE NODED NO. MOST TIME SHE WOULD ALREADY BE ASLEEP AGAIN. CONTINUE CARE.
[2021-05-09 04:45] VITALS: BP 124/73
[2021-05-09 06:15] LABS: HEMOGLOBIN 12.4 gm/dL (12.0-15.0); MCH 28.5 pg (26.0-34.0); MCV 91.9 fL (80.0-100.0); RBC 4.35 mil/uL (4.20-5.00); RDW 19.3 % (10.5-14.5); WBC 12.9 thou/uL (4.0-11.0)
[2021-05-09 06:26] LABS: CALCIUM 8.4 mg/dL (8.5-10.1); CREATININE 2.7 mg/dL (0.6-1.0); POTASSIUM 3.3 mmol/L (3.5-5.1)
[2021-05-09 07:57] VITALS: BP 118/73
--- NOTE | 2021-05-09 11:19 | NUR ---
TOOK OVER CARE OF THIS PATIENT AT 0700. PT RESTING IN BED. PT OFTEN BETSY OUT IN HER SLEEP; DENIES PAIN WHEN ASKED. PT ON 2 L OXYGEN VIA NASAL CANNULA FOR COMFORT. PATIENT AXOX2. PT'S SPEECH OFTEN INCOHERENT. ASSESSMENTS CHARTED. AT BEDSIDE. ASSISTED PATIENT WITH BREAKFAST. FALL PRECAUTIONS IN PLACE. CALL LIGHT WITHIN REACH.
[2021-05-09 15:41] VITALS: BP 120/81
[2021-05-09 20:00] VITALS: BP 122/8
[2021-05-09 20:15] VITALS: BP 122/78
[2021-05-10 04:45] VITALS: BP 121/74
[2021-05-10 04:55] LABS: HEMATOCRIT 38.4 % (37.0-47.0); HEMOGLOBIN 12.3 gm/dL (12.0-15.0); MCH 29.3 pg (26.0-34.0); MCHC 31.9 g/dL (28.0-37.0); MCV 91.6 fL (80.0-100.0); RBC 4.19 mil/uL (4.20-5.00); RDW 19.6 % (10.5-14.5); WBC 11.1 thou/uL (4.0-11.0)
[2021-05-10 04:58] LABS: ALBUMIN 1.7 g/dL (3.4-5.0); CALCIUM 8.1 mg/dL (8.5-10.1); CREATININE 2.6 mg/dL (0.6-1.0); DIRECT BILIRUBIN 0.8 mg/dL (<0.1-0.2); POTASSIUM 3.2 mmol/L (3.5-5.1); TOTAL BILIRUBIN 1.4 mg/dL (0.2-1.0); TOTAL PROTEIN 4.4 g/dL (6.4-8.2)
[2021-05-10 08:06] VITALS: BP 115/66
--- NOTE | 2021-05-10 08:10 | NUR ---
ASSESSMENTS CHARTED, MEDS CHARTED GIVEN. PATIENT RESTING IN BED DURING SHIFT. CRIES OUT DURING SLEEP. BILAT ARMS CONTINUE TO WEEP. ON MAINTENANCE FLUIDS. PLAN OF CARE IS TO TRANSFER TO [facility] TODAY. CONTINUE CARES.
[2021-05-10] MEDS ORDERED: XIFAXAN550 MG PO (11:22)
[2021-05-10 11:23] VITALS: BP 114/70
[2021-05-10] MEDS ORDERED: METOPROLOL TART25 MG PO (11:23)
[2021-05-10] MEDS ORDERED: TORSEMIDE20 MG PO (11:24)
[2021-05-10] MEDS ORDERED: POTASSIUM CHLO20 MEQ PO (11:24)
[2021-05-10] MEDS ORDERED: AUGMENTIN 875-1 EACH PO (11:25)
--- NOTE | 2021-05-10 12:30 | NUR ---
Attempted to call [facility] to give report twice. Final Coat Sprayer Uma indicated nurse was busy on the floor and would call back for report.
--- NOTE | 2021-05-10 12:41 | NUR ---
[facility] MEDIC[facility] THIS CM SPOKE TO PTS SPOUSE AND HE IS AWARE. PTS HAD SEVERAL QUESTIONS REGARDING COST AND COPAY ONCE TRANSFERRED. DANIA LIASON HERE TO SPEAK WITH SPOUSE LAST MONDAY AND REVEIWED COST. THIS CM ALSO SPOKE TO SPOUSE THIS DAY ABOUT PTS FIRST 20 DAYS ARE COVERED 100%. AFTER THAT THEY ARE UNALE TO BILL SECONDARY INS. COST PER DAY WILL BE $194.50. PTS VOICED UNDERSTNADING. UPDATES AND DISCHARGE ORDERS FAXED TO FACILITY. CHART COPIES. NURSING AWARE. PT WILL TRASFER VIA STRETCHER AT 1430. NO FURTHER CM INTERVENTIONS NEEDED AT THIS TIME.
== END 2021-05-10 14:07 | DRG 871 ==
LOC: ICU 13:21 → 2N 05-05 22:42
PROVIDERS: Hospitalist; Internal Medicine; Internal Medicine Nephrology; Nurse Practitioner; Psychiatry & Neurology Neurology; Radiology Vascular & Interventional Radiology; Specialist; Surgery; ADMIT Hospitalist; ATTEND Hospitalist
PROC: 05HY33Z Insertion of Infusion Device into Upper Vein, Percutaneous Approach (ICD-10-PCS; principal; 2021-04-28)
PROC: 0F9430Z Drainage of Gallbladder with Drainage Device, Percutaneous Approach (ICD-10-PCS; 2021-04-30)
DX: A41.9 Sepsis, unspecified organism (principal); E43 Unspecified severe protein-calorie malnutrition; G93.41 Metabolic encephalopathy; N17.9 Acute kidney failure, unspecified; N39.0 Urinary tract infection, site not specified; E87.1 Hypo-osmolality and hyponatremia; G72.81 Critical illness myopathy; I50.22 Chronic systolic (congestive) heart failure; K81.0 Acute cholecystitis; I13.0 Hypertensive heart and chronic kidney disease with heart failure and stage 1 through stage 4 chronic kidney disease, or unspecified chronic kidney disease; K21.9 Gastro-esophageal reflux disease without esophagitis; N18.30 Chronic kidney disease, stage 3 unspecified; E80.6 Other disorders of bilirubin metabolism; R53.81 Other malaise; R33.9 Retention of urine, unspecified; K59.09 Other constipation; E11.22 Type 2 diabetes mellitus with diabetic chronic kidney disease; I48.0 Paroxysmal atrial fibrillation; D69.6 Thrombocytopenia, unspecified; K81.1 Chronic cholecystitis; I25.5 Ischemic cardiomyopathy; I25.10 Atherosclerotic heart disease of native coronary artery without angina pectoris; R41.0 Disorientation, unspecified; B95.2 Enterococcus as the cause of diseases classified elsewhere; I49.5 Sick sinus syndrome; R74.01 Elevation of levels of liver transaminase levels; G47.33 Obstructive sleep apnea (adult) (pediatric); E87.6 Hypokalemia; Z95.0 Presence of cardiac pacemaker; Z88.6 Allergy status to analgesic agent; Z79.4 Long term (current) use of insulin; Z90.710 Acquired absence of both cervix and uterus; I25.2 Old myocardial infarction; Z68.32 Body mass index [BMI] 32.0-32.9, adult
CPT/HCPCS: 10078; 10081

== ENCOUNTER → 2021-06-16 | Outpatient (CLI) | payer OTHER ==
[~2021-06-16] MED LIST changes: +AUGMENTIN 875-1 EACH PO; +METOPROLOL TART25 MG PO; +POTASSIUM CHLO20 MEQ PO; +XIFAXAN550 MG PO
== END ==
LOC: SJCVC 16:01
PROVIDERS: ATTEND Internal Medicine Cardiovascular Disease
DX: R94.31 Abnormal electrocardiogram [ECG] [EKG] (principal); I11.0 Hypertensive heart disease with heart failure; I50.41 Acute combined systolic (congestive) and diastolic (congestive) heart failure; I48.21 Permanent atrial fibrillation; J43.9 Emphysema, unspecified; E11.9 Type 2 diabetes mellitus without complications; E78.5 Hyperlipidemia, unspecified; E66.9 Obesity, unspecified; Z95.0 Presence of cardiac pacemaker; Z88.8 Allergy status to other drugs, medicaments and biological substances; Z79.899 Other long term (current) drug therapy

== ENCOUNTER 2021-06-21 14:21 | Inpatient (IN) | payer OTHER ==
[~2021-06-21] VITALS: Ht 162.6 cm; Wt 144.2 kg
[2021-06-21] VITALS (15 sets, daily range): BP systolic 95–142; BP diastolic 47–80
--- NOTE | ~2021-06-21 | EKG ---
[address] [place] [place] [address] ELECTROCARDIOGRAM REPORT Name: GEORGI KAUFMAN Sundar Room #: 240-P ADM IN M.R.#: [id number] Admission: 06/21/21 Attend Phys: Jeromy Yanez MD Discharge: Date of : 46 Report #: [id number] [facility] ED Test Date: 2021-06-21 Test Time: 14:28:09 Pat Name: GEORGI KAUFMAN Department: Room: 240 P Gender: F Facilities Director: VKIAS : 1950 Requested By: Jayme Frey Order Number: [id number] MD: Measurements Intervals [place] Rate: 69 P: [place]: QRS: 257 QRSD: 140 T: 42 QT: 445 QTc: 477 Interpretive Statements Afib/flutter and ventricular-paced rhythm No further analysis attempted due to paced rhythm Compared to ECG 04/11/2021 09:01:41 No significant changes [email or web address] By: 1428 1428 Epiphany Epiphany, /EPI
[2021-06-21 14:42] LABS: ABSOLUTE NEUTROPHILS 7.6 thou/uL (1.4-8.2); BASOPHILS 0.3 % (0.0-2.0); EOSINOPHILS 0.2 % (0.0-3.0); HEMATOCRIT 38.3 % (37.0-47.0); HEMOGLOBIN 12.2 gm/dL (12.0-15.0); LYMPHOCYTES 8.1 % (24.0-44.0); MCH 29.5 pg (26.0-34.0); MCHC 31.9 g/dL (28.0-37.0); MCV 92.5 fL (80.0-100.0); MONOCYTES 11.2 % (1.0-8.0); PLATELET COUNT 219 thou/uL (150-400); POLYS 80.2 % (36.0-66.0); RBC 4.14 mil/uL (4.20-5.00); RDW 22.3 % (10.5-14.5); WBC 9.5 thou/uL (4.0-11.0)
[2021-06-21 14:58] LABS: CALCIUM 8.8 mg/dL (8.5-10.1); CREATININE 2.8 mg/dL (0.6-1.0); POTASSIUM 4.5 mmol/L (3.5-5.1)
[2021-06-21 15:02] LABS: ALBUMIN 2.5 g/dL (3.4-5.0); TOTAL BILIRUBIN 1.1 mg/dL (0.2-1.0); TOTAL PROTEIN 5.5 g/dL (6.4-8.2)
[2021-06-21 15:17] LABS: URINE BILIRUBIN NEGATIVE (Negative); URINE BLOOD 2+ (Negative); URINE CLARITY CLOUDY; URINE COLOR YELLOW; URINE GLUCOSE-RANDOM* 2+ (Negative); URINE KETONES NEGATIVE (Negative); URINE PROTEIN (DIPSTICK) 1+ (Negative); URINE UROBILINOGEN 0.2 E.U./dl (0.2-1.0)
[2021-06-21 15:18] LABS: URINE LEUKOCYTES-REFLEX 2+ (Negative); URINE NITRITE-REFLEX POSITIVE (Negative)
[2021-06-21 15:23] LABS: AMP/METHAMP Negative (Negative); BARBITURATES Negative (Negative); BENZODIAZEPINES Negative (Negative); COCAINE Negative (Negative); METHADONE Negative (Negative); OPIATES Negative (Negative); PCP Negative (Negative)
[2021-06-21 15:27] LABS: ANISOCYTOSIS 3+; POIKILOCYTOSIS 1+; POLYCHROMASIA 2+
[2021-06-21 15:29] LABS: SQUAMOUS None Seen /LPF (0-3)
[2021-06-21 15:30] LABS: CASTS None Seen /LPF (None Seen); CRYSTALS None Seen /LPF (None Seen); URINE RBC None Seen /HPF (NONE SEEN); URINE WBC-REFLEX None Seen /HPF (0-5)
== END 2021-06-22 | DRG 853 ==
LOC: ER 14:21 → ICU 17:24 → EROBS 17:24 → ICU 17:46
PROVIDERS: Emergency Medicine; ADMIT Hospitalist; ATTEND Hospitalist
PROC: 0FT44ZZ Resection of Gallbladder, Percutaneous Endoscopic Approach (ICD-10-PCS; principal; 2021-06-22)
PROC: 0FB04ZX Excision of Liver, Percutaneous Endoscopic Approach, Diagnostic (ICD-10-PCS; principal; 2021-06-22)
PROC: 02HV33Z Insertion of Infusion Device into Superior Vena Cava, Percutaneous Approach (ICD-10-PCS; 2021-06-22)
DX: A41.9 Sepsis, unspecified organism (principal); E43 Unspecified severe protein-calorie malnutrition; G92.8 Other toxic encephalopathy; N17.9 Acute kidney failure, unspecified; I50.20 Unspecified systolic (congestive) heart failure; L03.116 Cellulitis of left lower limb; L03.115 Cellulitis of right lower limb; E72.20 Disorder of urea cycle metabolism, unspecified; K56.7 Ileus, unspecified; K81.0 Acute cholecystitis; G72.81 Critical illness myopathy; Z20.822 Contact with and (suspected) exposure to COVID-19; K62.89 Other specified diseases of anus and rectum; K81.1 Chronic cholecystitis; Z68.32 Body mass index [BMI] 32.0-32.9, adult; Z88.8 Allergy status to other drugs, medicaments and biological substances; E66.9 Obesity, unspecified; I48.0 Paroxysmal atrial fibrillation; Z79.01 Long term (current) use of anticoagulants; E87.5 Hyperkalemia; K82.8 Other specified diseases of gallbladder
CPT/HCPCS: 10078